=== PATIENT | female | born 2000 | race Caucasian/White ===

== ENCOUNTER 2023-07-03 03:40 | Inpatient (IN) | payer MEDICAID, SELFPAY ==
[2023-07-03] VITALS (14 sets, daily range): BP systolic 98–139; BP diastolic 37–94; PULSE 95–126; RESP 18–30; TEMP 36.4–39.3; O2SAT 95–100; BMI 24.6
--- NOTE | ~2023-07-03 | XR_ITS ---
EXAMINATION: XR CHEST CLINICAL INFORMATION: Fever. COMPARISON: 06/06/2019 TECHNIQUE: Frontal view of the chest was obtained. FINDINGS: The lung volumes are low. The cardiomediastinal silhouette is within normal limits and stable. There is no definitive focal consolidation or pleural effusion. The bony structures and soft tissues are unremarkable. XR/XR chest 1V IMPRESSION: Low lung volumes. No evidence for active cardiopulmonary disease.
--- NOTE | ~2023-07-03 | CT_ITS ---
EXAMINATION: CT ABDOMEN AND PELVIS WITH CONTRAST CLINICAL INFORMATION: Follow-up bowel inflammatory changes. COMPARISON: 07/06/2023 and 07/03/2023 TECHNIQUE: Multidetector volumetric images were obtained from the superior aspect of the liver through the pubic symphysis following administration 85 mL of Omnipaque 350 intravenous contrast. Sagittal and coronal reformatted images were obtained on the technologist's workstation. Oral contrast: No This CT examination was performed using dose optimization techniques as appropriate, variously including the following: *Automated exposure control *Adjustment of mA and/or kV according to patient size (this includes techniques or standardized protocols for targeted exams where dose is matched to indication/reason for exam; i.e. extremities or head) *Use of iterative reconstruction technique DLP: 512 mGy-cm FINDINGS: LUNG BASES: Bibasilar small pleural effusion and dense consolidations are stable since previous study. LIVER, GALLBLADDER, AND BILIARY TREE: There is stable hemangioma in the dome of the liver and inseparable from right lower lobe consolidation, with minimal peripheral enhancement. Liver otherwise is unremarkable. The gallbladder is unremarkable with no evidence of radiopaque gallstones, gallbladder wall thickening, or obvious pericholecystic inflammatory changes. PANCREAS: Unremarkable. SPLEEN: Unremarkable. ADRENAL GLANDS: Unremarkable. KIDNEYS AND URETERS: The kidneys are normal in size, shape, and attenuation. No hydronephrosis, hydroureter, or calculi seen. No perinephric stranding. BLADDER: Unremarkable. GASTROINTESTINAL TRACT: When compared to the previous 2 examinations are inflammatory changes in the ileocecal region seems to be persistent with less prominent ascites surrounding the cecum. The cecum is distended. The wall of fecal matter is not thickened. Appendix is visualized, surrounded by fluid with fluid in the lumen and due to extensive inflammatory changes in the surrounding mesentery appendicitis could not be excluded. ABDOMINAL WALL: No significant hernia is appreciated. LYMPH NODES: Normal. VASCULAR: Unremarkable. PELVIC VISCERA: There is fluid in cul-de-sac OSSEOUS STRUCTURES: Unremarkable. CT/CT abdomen pelvis w IV con IMPRESSION: Inflammatory changes in the right lower quadrant surrounding ileocecal valve, thickened wall of terminal hilum most likely due to inflammatory changes and appendix, visualized in the current examination reveals inflammatory changes also. Correlate clinically. Fleischner guidelines were followed.
--- NOTE | ~2023-07-03 | XR_ITS ---
EXAMINATION: XR CHEST CLINICAL INFORMATION: Cough. COMPARISON: Chest x-ray 07/03/2023 TECHNIQUE: Frontal view of the chest was obtained. FINDINGS: The lungs are hypoexpanded patchy opacity seen in right middle lobe, slightly more prominent than 07/03/2023. The cardiomediastinal silhouette is within normal limits. No gross bony abnormality seen. XR/XR chest 1V IMPRESSION: Patchy opacity right middle lobe suspicious for developing infiltrate. Findings are slightly more prominent than 07/03/2023.
--- NOTE | ~2023-07-03 | CT_ITS ---
EXAMINATION: CT ABDOMEN AND PELVIS WITH CONTRAST CLINICAL INFORMATION: Abdominal pain. Question ileitis versus appendicitis. COMPARISON: CT abdomen and pelvis 07/03/2023 TECHNIQUE: Multidetector volumetric images were obtained from the superior aspect of the liver through the pubic symphysis following administration 85 mL of Omnipaque 350 intravenous contrast. Sagittal and coronal reformatted images were obtained on the technologist's workstation. Oral contrast: No This CT examination was performed using dose optimization techniques as appropriate, variously including the following: *Automated exposure control *Adjustment of mA and/or kV according to patient size (this includes techniques or standardized protocols for targeted exams where dose is matched to indication/reason for exam; i.e. extremities or head) *Use of iterative reconstruction technique DLP: 439 mGy-cm FINDINGS: LUNG BASES: There are bilateral lower lobe consolidations and pleural effusions. LIVER, GALLBLADDER, AND BILIARY TREE: The liver is normal in size, shape, and attenuation. There is irregular shaped right hepatic lobe lesion with central and some peripheral increased vascularity on sagittal image 82/5. Findings are suspicious for hemangioma. No additional lesions seen. No intrahepatic ductal dilatation. The gallbladder is unremarkable with no evidence of radiopaque gallstones, gallbladder wall thickening, or obvious pericholecystic inflammatory changes. PANCREAS: Unremarkable. SPLEEN: Unremarkable. ADRENAL GLANDS: Unremarkable. KIDNEYS AND URETERS: The kidneys are normal in size, shape, and attenuation. No hydronephrosis, hydroureter, or calculi seen. No perinephric stranding. BLADDER: Unremarkable. GASTROINTESTINAL TRACT: Interval there is clearance of stool from the colon with diffuse mural thickening and dilation involving the cecum with air-fluid level. The terminal ileum is thickened and contains moderate fluid. The terminal ileum is not so dilated. There is mild enhancement of the mucosa of the distal ileum.. There is adjacent fluid collection but no free air seen. The bowel findings are highly suspicious for inflammatory bowel disease such as Crohn's or typhlitis. Appendix is definitely not visualized the proximal and mid small bowel loops are normal caliber. The stomach is nondilated. ABDOMINAL WALL: No significant hernia is appreciated. LYMPH NODES: Prominent abnormal enhancing ileocecal mesenteric lymph nodes seen. VASCULAR: Unremarkable. PELVIC VISCERA: The uterus is anteverted and appears unremarkable. No adnexal mass seen. There is mild or free fluid. OSSEOUS STRUCTURES: Unremarkable. CT/CT abdomen pelvis w IV con IMPRESSION: Abnormal ileocecal junction, cecum which has progressed since 07/03/2023 CT abdomen exam. Findings are strongly suspicious for inflammatory or infectious bowel disease such as Crohn's or typhlitis. There is interval moderate free fluid and clearance of stool from the right colon. No free air seen to suspect any bowel perforation. Appendix is not seen. It was not seen previously either. Enhancing abnormal inflammatory ileocecal lymph nodes Fleischner guidelines were followed.
--- NOTE | ~2023-07-03 | FL_ITS ---
EXAMINATION: Modified Barium Swallow CLINICAL INFORMATION: Dysphagia COMPARISON: None TECHNIQUE: Modified barium swallow was performed under lateral fluoroscopy with patient in standing position. Barium mixed with liquids and solids of differing consistencies was administered by the speech therapist. Examination was recorded in the fluoroscopy suite. FINDINGS: No laryngeal penetration or aspiration was seen during this examination. FLUOROSCOPY TIME: 1 minute 33 seconds Number of Spot Images: 1 DOSE AREA PRODUCT: 883 uGy-m2 (microgray-meter squared) FL/FL barium swallow modified IMPRESSION: No laryngeal penetration or aspiration was seen during this examination. Refer to the speech therapy report for further clarification This procedure was performed by Sebastian Aguilar PA-C, and supervised by Dr. Collier
--- NOTE | ~2023-07-03 | CT_ITS ---
EXAMINATION: CT ABDOMEN AND PELVIS WITHOUT CONTRAST CLINICAL INFORMATION: Fever. Abdominal pain. COMPARISON: None available. TECHNIQUE: Multidetector volumetric imaging was performed from the superior aspect of the liver through the pubic symphysis. Sagittal and coronal reformatted images were obtained on the technologist's workstation. This CT examination was performed using dose optimization techniques as appropriate, variously including the following: *Automated exposure control *Adjustment of mA and/or kV according to patient size (this includes techniques or standardized protocols for targeted exams where dose is matched to indication/reason for exam; i.e. extremities or head) *Use of iterative reconstruction technique DLP: 506 mGy-cm FINDINGS: LUNG BASES: Mild atelectasis or scarring at the right lung base. LIVER, GALLBLADDER, AND BILIARY TREE: The liver is normal in size, shape, and attenuation. No focal hepatic lesion or biliary ductal dilatation is present. The gallbladder is unremarkable with no evidence of radiopaque gallstones, gallbladder wall thickening, or obvious pericholecystic inflammatory changes. PANCREAS: Unremarkable. SPLEEN: Unremarkable. ADRENAL GLANDS: Unremarkable. KIDNEYS AND URETERS: The kidneys are normal in size, shape, and attenuation. No hydronephrosis, hydroureter, or calculi seen. No perinephric stranding. BLADDER: Unremarkable. GASTROINTESTINAL TRACT: There is significant infiltrative change in the right lower quadrant with apparent thickening of the terminal small bowel and basal the cecum. The appendix is not confidently seen as a separate structure. There is retained stool throughout the colon. A rectal catheter is noted in place. ABDOMINAL WALL: No significant hernia is appreciated. LYMPH NODES: Normal. VASCULAR: Unremarkable. PELVIC VISCERA: The uterus and adnexal regions are within normal limits. There is a small amount of free fluid within the pelvis. OSSEOUS STRUCTURES: Unremarkable. CT/CT abdomen pelvis wo IV con IMPRESSION: Inflammatory change in the right lower quadrant with apparent thickening of the terminal small bowel and base of the cecum. Small amount of free fluid within the pelvis. Appendicitis favored over inflammatory bowel disease. Correlation is needed. Consider repeat examination with oral and IV contrast. Retained stool throughout. Rectal catheter in place. Fleischner guidelines were followed.
[2023-07-03] MEDS: 0.9 % Sodium Chloride 1,000 ML 999 ML IV (04:01)
--- NOTE | 2023-07-03 04:05 | ED_ITS ---
HPI - Altered Mental Status General Chief Complaint: General Medical Stated Complaint: LETHARGY, NON VERBAL, WHEELCHAIR BOUND Time Seen by Provider: 07/03/23 03:55 Source: family (Mother) and EMS Mode of arrival: EMS Limitations: physical limitation (Nonverbal.) History of Present Illness HPI narrative: 22-year-old female with history of cerebral palsy, febrile seizure disorder, nonverbal came in by her mom for concern of being lethargic and difficult to arouse. Limited history because patient medical history, found to have a fever of 104, patient also is grimacing during the abdominal exam. Mother declined any sick contacts, no recent travel. Related Data Allergies Allergy/AdvReac Type Severity Reaction Status Date / Time No Known Allergies Allergy Unverified 01/29/20 17:00 Review of Systems 2 Review of Systems: All other systems are reviewed and are negative Constitutional: Reports as per HPI and Reports no additional constitutional complaints Eyes: Reports as per HPI and Reports no additional eye complaints Reports system reviewed and no additional complaints, except as documented Cardiovascular: Reports as per HPI and Reports no additional cardiovascular complaints Respiratory: Reports as per HPI and Reports no additional respiratory complaints Gastrointestinal: Reports as per HPI and Reports no additional gastrointestinal complaints Genitourinary: Reports no additional female genitourinary complaints Musculoskeletal: Reports no additional musculoskeletal complaints Skin/Breast: Reports system reviewed and no additional complaints, except as docu Psychiatric: Reports no additional psychiatric complaints Endocrine: Reports no additional endocrine complaints Hematologic/Lymphatic: Reports no additional hematologic/lymphatic complaints Allergic/Immunologic: Reports no additional allergic/immunologic complaints Reports system reviewed and no additional complaints, except as documented and Reports Abnormal speech present [facility] Social History Social History Advance Directives: No Advance Directives Information Provided: Yes Physical Exam ED Vital Signs: Vital Signs - 24 hr 07/03/23 03:53 07/03/23 04:23 07/03/23 04:38 Temperature 102.7 F H 102.7 F H Pulse Rate 114 H 108 H 109 H Respiratory Rate 24 H 24 H 23 H Blood Pressure 111/72 123/58 L 139/94 H Pulse Oximetry 100 100 97 Oxygen Delivery Method Room Air Room Air Room Air 07/03/23 05:30 07/03/23 05:53 07/03/23 06:29 Temperature 102.2 F H 101.5 F H 100.9 F H Pulse Rate 109 H 112 H 95 Respiratory Rate 20 21 H 19 Blood Pressure 108/59 L 112/61 105/60 Pulse Oximetry 98 99 99 Oxygen Delivery Method Room Air Room Air Room Air BMI result Body Mass Index 24.6 Vital signs have been reviewed and appear to be correct. Blood pressure elevated. Heart rate normal. Respiratory rate normal. Febrile, Oxygen saturation normal. Appearance: Nonverbal Head: Normal external exam. Normocephalic. Atraumatic. No Russo signs noted. No raccoon eyes noted Eyes: PERRLA. EOMI. Conjunctiva and sclera normal. Eyelids normal. ENT: TM's Normal. Pharynx normal. Uvula midline. Moist mucous membranes. No trismus noted. No drooling noted. No muffled voice noted. Neck: Normal inspection. Neck supple. FROM. No adenopathy. Thyroid Normal. No meningeal signs. No neck mass noted. CVS: Normal heart rate and rhythm. Heart sound normal. No murmurs noted. Pulses normal throughout. Respiratory: No respiratory distress. Painless inspiration. Breath sounds normal. No wheezes/rales/rhonchi noted. Chest nontender. No accessory muscle usage noted or decreased air movement noted. Abdomen: Mild tenderness, no rebound tenderness, no guarding. Bowel sounds normal in all 4 quadrants. No distention noted. No organomegaly noted. No visible injury noted. Back: No CVA tenderness. Full range of motion noted. Skin: Skin warm and dry. Normal skin color. Normal skin turgor. No rashes/lesions/lacerations noted. Extremities: No lower extremity edema. Extremities exhibit normal range of motion. Extremities nontender. Neuro: Oriented X 3. Cranial nerve exam: II-XII are grossly intact No motor deficit. No sensory deficit. Reflexes normal. Course Reevaluation(s) Reevaluation #1: 22-year-old female nonverbal with fever and meet sepsis criteria no source of infection, likely secondary to UTI unable to pass Souza catheter or straight catheter due to abnormal anatomy patient received 1 dose of prophylactic ceftriaxone and IV fluids, awaiting for CT of the abdomen and pelvis and UA. Case signed out to Dr. Valdivia. Time: 06:44 Medications Administered Generic Name Dose Route Start Last Admin Trade Name Freq PRN Reason Stop Dose Admin Sodium Chloride 1,000 mls @ 500 mls/hr 07/03/23 05:47 07/03/23 05:52 Ns IV 07/03/23 07:46 500 mls/hr .Q2H ONE Administration Discontinued Medications Generic Name Dose Route Start Last Admin Trade Name Xavi PRN Reason Stop Dose Admin Acetaminophen 650 mg 07/03/23 04:04 07/03/23 04:10 Acetaminophen Supp 650 Mg Supp.Rect IA 07/03/23 04:05 650 mg ONCE ONE Administration Sodium Chloride 1,000 mls @ 999 mls/hr 07/03/23 03:55 07/03/23 05:30 Ns IV 07/03/23 04:55 Infused .Q1H1M ONE Infusion Ceftriaxone Sodium 1 gm/ 50 mls @ 100 mls/hr 07/03/23 05:08 07/03/23 05:47 Sodium Chloride IV 07/03/23 05:37 Infused ONCE ONE Infusion Ibuprofen 400 mg 07/03/23 05:02 07/03/23 05:17 Ibuprofen Oral Susp 200 Mg/10 Ml Oral.Susp PO 07/03/23 05:03 400 mg ONCE ONE Administration Medical Decision Making Differential Diagnosis Differential Diagnoses: The differential diagnosis associated with the presentation includes (Colitis, diverticulitis, appendicitis, pancreatitis, acute cholecystitis, UTI, pyelonephritis, electrolyte derangement, severe anemia.) Admission/Observation Consideration of admission/observation: Escalation of care including admission/observation considered Lab Data MDM Lab Attestation statement: I reviewed the patient's lab results. 07/03/23 04:03 07/03/23 04:03 Labs: Lab Results 07/03/23 Range/Units 04:03 WBC 13.6 H (4.8-10.8) X10*3/uL RBC 3.78 L (4.20-5.50) X10*6/uL Hgb 12.0 (12.0-16.0) g/dl Hct 37.3 (37.0-47.0) % MCV 98.7 H (80.0-98.0) fL MCH 31.7 (27.0-33.0) pg MCHC 32.2 (31.0-35.0) g/dl RDW 12.3 (11.0-16.0) % Plt Count 112 L (160-400) X10*3/uL MPV 11.1 (9.4-12.3) fL Immature Gran % (Auto) 0.4 (0.0-0.4) % Neut % (Auto) 68.1 (45-73) % Lymph % (Auto) 12.2 L (20-40) % [place] % (Auto) 19.2 H (2-11) % Eos % (Auto) 0.0 (0-4) % Baso % (Auto) 0.1 (0-2) % Lymph # (Auto) 1.7 (1.2-4.9) X10*3/uL [place] # (Auto) 2.6 H (0.1-1.2) X10*3/uL Eos # (Auto) 0.0 (0.0-0.4) X10*3/uL Baso # (Auto) 0.0 (0.0-0.2) X10*3/uL Abs Immat Gran (auto) 0.06 H (0.00-0.03) X10*3/uL Absolute Neuts (auto) 9.3 H (2.0-8.3) x10*3/uL Absolute Nucleated RBC 0.000 (0.0-0.012) X10*3/uL Nucleated RBC % (auto) 0.0 (0.0-0.2) /100WBC Smear Tech's Comments VERIFIED Sodium 139 (135-145) mmol/L Potassium 4.1 (3.3-5.1) mmol/L Chloride 108 (96-108) mmol/L Carbon Dioxide 21 L (22-29) mmol/L Anion Gap 14 (12-20) BUN 13 (9-16) mg/dL Creatinine 0.63 (0.5-1.4) mg/dL Estim Creat Clear Calc TNP Estimated GFR > 60 Random Glucose 140 H (60-115) mg/dL Lactic Acid 1.0 (0.5-2.0) mmol/L Calcium 9.6 (8.4-10.2) mg/dL Total Bilirubin 0.3 (0.0-1.0) mg/dL Direct Bilirubin 0.1 (0.0-0.5) mg/dL AST 12 (5-31) U/L ALT < 5 (0-31) U/L Alkaline Phosphatase 70 (39-117) U/L Troponin I High Sens < 2.7 (<3.5-17.0) ng/L B-Natriuretic Peptide < 10 (<100) pg/mL Total Protein 7.5 (6.5-8.0) g/dL Albumin 3.6 (3.5-5.0) g/dL Lipase 38 (8-78) U/L Influenza Type A (PCR) NEGATIVE (Negative) Influenza Type B (PCR) NEGATIVE (Negative) RSV RNA Qual (PCR) NEGATIVE (Negative) SARS-CoV-2 RNA (RT-PCR) NEGATIVE (Negative) Independent Interpretation I performed an independent interpretation of an: Plain X-Ray (No acute pathology.) Radiology Impression Discussion of test interpretation with radiology: I have reviewed the radiologist's reading. Discharge Plan Discharge Clinical Impression: Fever, Abdominal pain Patient Disposition: Still a Patient
[2023-07-03 04:09] LABS: Basophils Percent Auto 0.1 % (0-2); PLT CLUMP 1; SCAN SMEAR FLAG 1
[2023-07-03] MEDS: Acetaminophen Supp 650 MG SUPP.RECT PR (04:10)
[2023-07-03 04:11] LABS: Hematocrit 37.3 % (37.0-47.0); Imm Gran Abs Auto 0.06 X10*3/uL (0.00-0.03); Imm Gran Pct Auto 0.4 % (0.0-0.4); Lymphocytes Absolute Auto 1.7 X10*3/uL (1.2-4.9); Lymphocytes Percent Auto 12.2 % (20-40); MANUAL DIFF FLAG SCAN; Mean Corpuscular HGB Conc 32.2 g/dl (31.0-35.0); Mean Corpuscular Hemoglobin 31.7 pg (27.0-33.0); Mean Corpuscular Volume 98.7 fL (80.0-98.0); Mean Platelet Volume 11.1 fL (9.4-12.3); Monocytes Absolute Auto 2.6 X10*3/uL (0.1-1.2); Monocytes Percent Auto 19.2 % (2-11); Neutrophils Absolute Auto 9.3 x10*3/uL (2.0-8.3); Neutrophils Percent Auto 68.1 % (45-73); Red Blood Count 3.78 X10*6/uL (4.20-5.50); Red Cell Distribution Width 12.3 % (11.0-16.0)
[2023-07-03 04:13] LABS: Platelet Count 112 X10*3/uL (160-400); White Blood Count 13.6 X10*3/uL (4.8-10.8)
[2023-07-03 04:25] LABS: Alanine Aminotransferase < 5 U/L (0-31); Albumin Level 3.6 g/dL (3.5-5.0); Alkaline Phosphatase 70 U/L (39-117); Anion Gap 14 (12-20); Aspartate Amino Transferase 12 U/L (5-31); Bilirubin Direct 0.1 mg/dL (0.0-0.5); Bilirubin Total 0.3 mg/dL (0.0-1.0); Blood Urea Nitrogen 13 mg/dL (9-16); Calcium 9.6 mg/dL (8.4-10.2); Carbon Dioxide 21 mmol/L (22-29); Chloride 108 mmol/L (96-108); Estimated Glomerular Filt Rate > 60; Glucose Random 140 mg/dL (60-115); Lipase 38 U/L (8-78); Potassium 4.1 mmol/L (3.3-5.1); Sodium 139 mmol/L (135-145); Total Protein 7.5 g/dL (6.5-8.0)
[2023-07-03 04:28] LABS: SLIDE REVIEW VERIFIED
[2023-07-03 04:32] LABS: Troponin-I High Sensitivity < 2.7 ng/L (<3.5-17.0)
[2023-07-03 04:33] LABS: B Type Natriuretic Peptide < 10 pg/mL (<100)
[2023-07-03 04:51] LABS: Influenza A PCR NEGATIVE (Negative); Influenza B PCR NEGATIVE (Negative); Resp Syncy Virus RNA Qual PCR NEGATIVE (Negative); SARS COV2 PCR INHOUSE NEGATIVE (Negative)
[2023-07-03] MEDS: cefTRIAXone sodium 1 GM in 0.9 % Sodium Chloride 50 ML IV (05:17)
[2023-07-03] MEDS: Ibuprofen Oral Susp 200 MG/10 ML ORAL.SUSP 400 MG PO (05:17)
--- OUTSIDE RECORDS SUMMARY | 2023-07-03 05:51 | XMS_ITS | Continuity of Care Document ---
Author Name Unknown Organization [facility] Address [address] [place] [address]- Care Team Providers Care Marketing Content Coordinator Name Role Phone Mariam ESCOBAR, Kristina Lewis Primary Care Physician [phone] Encounter [facility] [place] Date(s): 04/26/22 - 05/26/22 [facility] [address] [place] [address]- Allergies, Adverse Reactions, Alerts No Known Allergies Medications clobazam 10 mg oral tablet 1 tablet = 10 mg, By Mouth, 2 times a day, # 60 tablet, 5 Refills, Maintenance, 11/04/15 14:46:26 Start Date: 11/04/15 Status: Ordered cloNIDine 0.1 mg oral tablet See Instructions, 0.25 tablet By Mouth in AM, # 30 tablet, Refills 5, Tot. Refills 5, Maintenance, 11/04/15 14:44:12, Instructions Replace Required Details, Route to Pharmacy Electronically, [id number], [id number] Start Date: 11/04/15 Status: Ordered Diastat AcuDial 10 mg rectal kit See Instructions, 7.5mg Rectally Once for convulsive seizure > 3 minutes., # 2 kit, 0 Refills, Soft Stop, 02/18/16 16:40:43 Start Date: 02/18/16 Status: Ordered Divalproex Sodium By Mouth, 0 Refills, Maintenance, 02/11/19 13:08:10 EDT Start Date: 02/11/19 Status: Ordered ethinyl estradiol-levonorgestrel 30 mcg-0.15 mg oral tablet 1 tablet, By Mouth, Daily, # 84 tablet, 3 Refills, Maintenance, 01/27/21 14:13:00 EDT, Tablet, [id number], Partial fill upon patient request if the prescription is for a schedule II opioid drug., 1 tablet By Mouth Daily, 57.2, kg, 01/24/21 14:... Start Date: 01/27/21 Status: Ordered ferrous sulfate 325 mg oral enteric coated tablet 325 mg, 1, tablet, By Mouth, 2 times a day, # 180 tablet, Refills 0, Tot. Refills 0, Maintenance, 02/24/19 12:44:09 EDT, Route to Pharmacy Electronically, [id number], [facility]/pharmacy #[id number] Start Date: 02/24/19 Status: Ordered Guanfacine By Mouth, Refills 0, Maintenance, 08/30/17 23:27:36 EDT Start Date: 08/30/17 Status: Ordered levothyroxine 0.088 mg oral tablet 1 tablet = 88 mcg, By Mouth, Daily, # 90 tablet, 3 Refills, Maintenance, 04/22/22 14:03:00 EST, Tablet, [facility]/pharmacy #[id number], Partial fill upon patient request if the prescription is for a schedule II opioid drug., 57.2, kg, 01/24/21 14:44:00 EDT, Dry W... Start Date: 04/22/22 Status: Ordered Melatonin Daily at bedtime, 0 Refills, Maintenance, 08/30/17 23:27:27 EDT Start Date: 08/30/17 Status: Ordered Onfi 10 mg oral tablet 0.5 tablet = 5 mg, By Mouth, Daily, 0.5 tablet in AM; 1 tablet at bedtime, 0 Refills, Maintenance, 08/30/17 23:28:26 EDT, Tablet Start Date: 08/30/17 Status: Ordered topiramate 100 mg oral tablet 2.5 tablet = 250 mg, By Mouth, 2 times a day, # 150 tablet, 11 Refills, Maintenance, 11/04/15 14:45:27, This is a dose increase. 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
[2023-07-03] MEDS: 0.9 % Sodium Chloride 1,000 ML 500 ML IV (05:52)
--- OUTSIDE RECORDS SUMMARY | 2023-07-03 05:52 | XMS_ITS | Continuity of Care Document ---
Author Name Unknown Organization [facility] Address [address] [place] [address]- Care Team Providers Care Mesh Worker Name Role Phone Mariam ESCOBAR, Kristina Lewis Primary Care Physician Encounter [facility] [place] Date(s): 04/25/22 - 05/25/22 [facility] [address] [place] [address]- Allergies, Adverse Reactions, Alerts No Known Allergies [...] Replace Required Details, Route to Pharmacy Electronically, [id number], [id number] Start Date: 11/04/15 Status: Ordered Diastat AcuDial [...] Refills, Maintenance, 01/27/21 14:13:00 EDT, Tablet, [id number], Partial fill upon patient request if the prescription is for a schedule II opioid drug., 1 tablet By Mouth Daily, 57.2, kg, 01/24/21 14:... Start Date: 01/27/21 Status: Ordered ferrous sulfate 325 mg oral enteric coated tablet 325 mg, 1, tablet, By Mouth, 2 times a day, # 180 tablet, Refills 0, Tot. Refills 0, Maintenance, 02/24/19 12:44:09 EDT, Route to Pharmacy Electronically, [id number], [facility]/pharmacy #[id number] Start Date: 02/24/19 Status: Ordered Guanfacine By Mouth, Refills 0, Maintenance, 08/30/17 23:27:36 EDT Start Date: 08/30/17 Status: Ordered levothyroxine 0.088 mg oral tablet 1 tablet = 88 mcg, By Mouth, Daily, # 90 tablet, 3 Refills, Maintenance, 04/22/22 14:03:00 EST, Tablet, [facility]/pharmacy #[id number], Partial fill upon patient request if [...] H ealth Status Informant Hypothyroidism Confirmed Active [place]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
--- OUTSIDE RECORDS SUMMARY | 2023-07-03 05:52 | XMS_ITS | Continuity of Care Document ---
Author Name Unknown Organization [facility] Address [address] [place] [address]- Care Team Providers Care Street Roller Engineer Name Role Phone Kristina Becerra MD Primary Care Physician [place] [facility] [place] - 05/26/21 [facility] [address] [place] [address]- Attending Physician: Trixie Schulz Admitting Physician: Trixie Schulz Referring Physician: Trixie Schulz Allergies, Adverse Reactions, Alerts No Known Allergies [...] Replace Required Details, Route to Pharmacy Electronically, [id number], [facility]/pharmacy #[id number] Start Date: 11/04/15 Status: Ordered Diastat AcuDial [...] 3 Refills, Maintenance, 01/27/21 14:13:00 EDT, Tablet, [facility]/pharmacy #[id number], Partial fill upon patient request if [...] 02/24/19 12:44:09 EDT, Route to Pharmacy Electronically, [id number], [facility]/pharmacy #[id number] Start Date: 02/24/19 Status: Ordered Guanfacine By Mouth, Refills 0, Maintenance, 08/30/17 23:27:36 EDT Start Date: 08/30/17 Status: Ordered levothyroxine 0.088 mg oral tablet 1 tablet = 88 mcg, By Mouth, Daily, # 90 tablet, 3 Refills, Maintenance, 04/26/21 16:17:00 EST, Tablet, [facility]/pharmacy #[id number], Partial fill upon patient request if the prescription is for a schedule II opioid drug., 57.2, kg, 01/24/21 14:44:00 EDT, Dry W... Start Date: 04/26/21 Status: Ordered Melatonin Daily at bedtime, 0 [...] Date: 11/04/15 Status: Ordered Problem List Condition Effective Dates Status Health Status Inform ant Hypothyroidism(Confirmed) Active Nelson-Gastaut syndrome(Confirmed)(Stable) Active Mental retardation(Confirmed)(Stable) Active Social History Social History Type Response Smoking Status Never smoker entered on: 07/16/14 Sex
--- OUTSIDE RECORDS SUMMARY | 2023-07-03 05:52 | XMS_ITS | Continuity of Care Document ---
Author Name Unknown Organization [facility] Address [address] [place] [address]- Care Team Providers Care Emt/Paramedic Name Role Phone Mariam ESCOBAR, Kristina Lewis Primary Care Physician [place] [facility] [place](s): 04/21/22 - 05/21/22 [facility] [address] [place] [address]- Allergies, Adverse Reactions, Alerts No Known Allergies [...] Replace Required Details, Route to Pharmacy Electronically, [id number], [facility]/pharmacy #[id number] Start Date: 11/04/15 Status: Ordered Diastat AcuDial [...] Refills, Maintenance, 01/27/21 14:13:00 EDT, Tablet, [id number], Partial fill upon patient request if the prescription is for a schedule II opioid drug., 1 tablet By Mouth Daily, 57.2, kg, 01/24/21 14:... Start Date: 01/27/21 Status: Ordered ferrous sulfate 325 mg oral enteric coated tablet 325 mg, 1, tablet, By Mouth, 2 times a day, # 180 tablet, Refills 0, Tot. Refills 0, Maintenance, 02/24/19 12:44:09 EDT, Route to Pharmacy Electronically, [id number], [facility]/pharmacy #[id number] Start Date: 02/24/19 Status: Ordered Guanfacine By Mouth, Refills 0, Maintenance, 08/30/17 23:27:36 EDT Start Date: 08/30/17 Status: Ordered levothyroxine 0.088 mg oral tablet 1 tablet = 88 mcg, By Mouth, Daily, # 90 tablet, 3 Refills, Maintenance, 04/22/22 14:03:00 EST, Tablet, 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
--- OUTSIDE RECORDS SUMMARY | 2023-07-03 05:52 | XMS_ITS | Continuity of Care Document ---
Author Name Unknown Organization [facility] Address [address] [place] [address]- Care Team Providers Care Clothes Drier Repairer Name Role Phone Mariam ESCOBAR, Kristina Lewis Primary Care Physician [place] [facility] [place](s): 01/27/21 - 05/04/21 [facility] [address] [place] [address]- Attending Physician: Lana Guthrie MD Admitting Physician: Lana Guthrie MD Allergies, Adverse Reactions, Alerts Substance Reaction Severity Status NKA Active Medications clobazam 10 mg oral tablet 1 tablet = 10 mg, By Mouth, 2 times a day, # 60 tablet, 5 Refills, Maintenance, 11/04/15 14:46:26 Start Date: 11/04/15 Status: Ordered cloNIDine 0.1 mg oral tablet See Instructions, 0.25 tablet By Mouth in AM, # 30 tablet, Refills 5, Tot. Refills 5, Maintenance, 11/04/15 14:44:12, Instructions Replace Required Details, Route to Pharmacy Electronically, [id number], [id number] Start Date: 11/04/15 Status: Ordered Diastat AcuDial [...] Refills, Maintenance, 01/27/21 14:13:00 EDT, Tablet, [id number], Partial fill upon patient request if [...] 02/24/19 12:44:09 EDT, Route to Pharmacy Electronically, [id number], [facility]/pharmacy #[id number] Start Date: 02/24/19 Status: Ordered Guanfacine By Mouth, Refills 0, Maintenance, 08/30/17 23:27:36 EDT Start Date: 08/30/17 Status: Ordered levothyroxine 0.088 mg oral tablet 1 tablet = 88 mcg, By Mouth, Daily, # 90 tablet, 3 Refills, Maintenance, 04/26/21 16:17:00 EST, Tablet, [facility]/pharmacy #[id number], Partial fill upon patient [...]
--- OUTSIDE RECORDS SUMMARY | 2023-07-03 05:52 | XMS_ITS | Continuity of Care Document ---
Author Name Unknown Organization [facility] Address [address] [place] [address]- Care Team Providers Care Homicide Investigator Name Role Phone Mariam ESCOBAR, Kristina Lewis Primary Care Physician [phone] [place] [facility] [place](s): 02/24/21 - 03/26/21 [facility] [address] [place] [address]- Allergies, Adverse Reactions, Alerts Substance Reaction Severity [...] Replace Required Details, Route to Pharmacy Electronically, [id number], [id number] Start Date: 11/04/15 Status: Ordered [...] Refills, Maintenance, 01/27/21 14:13:00 EDT, Tablet, [id number], Partial fill upon patient request if the prescription is for a schedule II opioid drug., 1 tablet By Mouth Daily, 57.2, kg, 01/24/21 14:... Start Date: 01/27/21 Status: Ordered ferrous sulfate 325 mg oral enteric coated tablet 325 mg, 1, tablet, By Mouth, 2 times a day, # 180 tablet, Refills 0, Tot. Refills 0, Maintenance, 02/24/19 12:44:09 EDT, Route to Pharmacy Electronically, [id number], [facility]/pharmacy #[id number] Start Date: 02/24/19 Status: Ordered Guanfacine By Mouth, Refills 0, Maintenance, 08/30/17 23:27:36 EDT Start Date: 08/30/17 Status: Ordered levothyroxine 0.1 mg oral tablet 1 tablet = 100 mcg, By Mouth, Daily, # 30 tablet, 11 Refills, Maintenance, 01/27/21 14:12:00 EDT, [facility]/pharmacy #[id number], Partial fill upon patient request if the prescription is for a schedule II opioiddrug., 57.2, kg, 01/24/21 14:44:00 EDT, Dry Weight Start Date: 01/27/21 Status: Ordered Melatonin Daily at bedtime, 0 [...] Effective Dates Status Health Status Inform ant Nelson-Gastaut syndrome(Confirmed)(Stable) Active Mental retardation(Confirmed)(Stable) Active Social History Social History Type Response Smoking Status Never smoker entered on: 07/16/14 Sex
--- OUTSIDE RECORDS SUMMARY | 2023-07-03 05:52 | XMS_ITS | Continuity of Care Document ---
Author Name Unknown Organization [facility] Address [address] [place] [address]- Care Team Providers Care Research Tech Name Role Phone Mariam ESCOBAR, Kristina Lewis Primary Care Physician [place] [facility] [place]21 - 05/05/21 [facility] [address] [place] [address]- Allergies, Adverse Reactions, Alerts Substance Reaction Severity [...] Replace Required Details, Route to Pharmacy Electronically, [id number], [id number] Start Date: 11/04/15 Status: Ordered Diastat AcuDial [...] Refills, Maintenance, 01/27/21 14:13:00 EDT, Tablet, [id number], Partial fill upon patient request if the prescription is for a schedule II opioid drug., 1 tablet By Mouth Daily, 57.2, kg, 01/24/21 14:... Start Date: 01/27/21 Status: Ordered ferrous sulfate 325 mg oral enteric coated tablet 325 mg, 1, tablet, By Mouth, 2 times a day, # 180 tablet, Refills 0, Tot. Refills 0, Maintenance, 02/24/19 12:44:09 EDT, Route to Pharmacy Electronically, [id number], [facility]/pharmacy #[id number] Start Date: 02/24/19 Status: Ordered Guanfacine By Mouth, Refills 0, Maintenance, 08/30/17 23:27:36 EDT Start Date: 08/30/17 Status: Ordered levothyroxine 0.088 mg oral tablet 1 tablet = 88 mcg, By Mouth, Daily, # 90 tablet, 3 Refills, Maintenance, 04/26/21 16:17:00 EST, Tablet, [facility]/pharmacy #[id number], Partial fill upon patient [...]
--- OUTSIDE RECORDS SUMMARY | 2023-07-03 05:52 | XMS_ITS | Continuity of Care Document ---
Author Name Unknown Organization [facility] ter Address [address] [place] [id number]- Care Team Providers Care Counter Pocket Trimmer Name Role Phone Mariam ESCOBAR, Kristina Lewis Primary Care Physician [phone] [place] [facility] [id number] Date(s): 07/20/22 - 07/20/[address] [address]- Encounter Diagnosis Sepsis(Final) - 07/20/22 Urinary tract infection(Final) - 07/20/22 Discharge Disposition: A-D/C Home Attending Physician: Aida Conde MD Admitting Physician: Aida Conde MD Referring Physician: Not on Staff, Referring MD Allergies, Adverse Reactions, Alerts No Known Allergies Medications cefpodoxime 200 mg oral tablet 1 tablet = 200 mg, By Mouth, Every 12 hours, for 9 days, # 18 tablet, 0 Refills, Acute 07/29/22 12:05:00 EDT, 07/20/22 12:05:00 EST, Tablet, [facility] [place] [facility], Partial fill upon patient request if the prescription is for a schedule II opioid . Start Date: 07/20/22 Stop Date: 07/29/22 Status: Ordered clobazam 10 mg oral tablet 1 tablet = 10 mg, By Mouth, 2 times a day, # 60 tablet, 5 Refills, Maintenance, 11/04/15 14:46:26 Start Date: 11/04/15 Status: Ordered cloNIDine 0.1 mg oral tablet See Instructions, 0.25 tablet By Mouth in AM, # 30 tablet, Refills 5, Tot. Refills 5, Maintenance, 11/04/15 14:44:12, Instructions Replace Required Details, Route to Pharmacy Electronically, [id number], [id number] Start Date: 11/04/15 Status: Ordered Diastat AcuDial [...] 3 Refills, Maintenance, 01/27/21 14:13:00 EDT, Tablet, [id number], Partial fill upon patient request if [...] 02/24/19 12:44:09 EDT, Route to Pharmacy Electronically, [id number], [id number] Start Date: 02/24/19 Status: Ordered Guanfacine By Mouth, Refills 0, Maintenance, 08/30/17 23:27:36 EDT Start Date: 08/30/17 Status: Ordered levothyroxine 0.088 mg oral tablet 1 tablet = 88 mcg, By Mouth, Daily, # 90 tablet, 3 Refills, Maintenance, 04/22/22 14:03:00 EST, Tablet, [id number], Partial fill upon patient [...] H ealth Status Informant Hypothyroidism Confirmed Active Angelina-Gastaut syndrome Confirmed Stable Active Mental retardation Confirmed Stable Active Results Radiology Reports * Exam Date Time Procedure Performing Provider Status 07/20/22 12:29 AM Chest Portable Becky Duvall; Auth (Verified) Notes: (Chest Portable) Reason For Exam: Shortness of Breath RESULT: Chest Portable Chest Portable Hx of Present Illness: fevers started this evening with shaking; Reason: Shortness of Breath; Clinical Question(s): CHF COMPARISON: None. FINDINGS: LINES AND TUBES: None. LUNGS AND PLEURA: Somewhat low lung volumes with atelectasis. No definite consolidation. No pleural effusion. No pneumothorax. HEART, MEDIASTINUM AND VITA: Heart is normal in size. Normal mediastinal and hilar contour. BONES AND SOFT TISSUES: No acute abnormality. IMPRESSION: Low lung volumes without acute cardiopulmonary process. WSN: [id number] Ordering Physician: Adan Pina Dictated By: Darwin Calderón MD Dictated Date/Time: 07/20/22 7:47 am Reviewed By: Darwin Calderón MD Signed By: Darwin Calderón MD Signed Date/Time: 07/20/22 7:47 am Transcribed By: JANIA Transcribed Date/Time: 07/20/22 7:46 am * Exam Date Time Procedure Performing Provider Status 07/20/22 3:[address] Abdomen and Pelvis W/O Contrast Stup ak , Alon; Auth (Verified) Notes: (CT Abdomen and Pelvis W/O Contrast) Reason For Exam: Flank pain, kidney stone suspected;Other: RESULT: CT Abdomen and Pelvis W/O Contrast CT Abdomen and Pelvis W/O Contrast REASON: Somnolent, less responsive, fever. Flank pain, kidney stone suspected; Clinical Question(s): Calculus; Right Side flank TECHNIQUE: Spiral CT through the abdomen and pelvis without IV contrast formatted in 3 planes. Thisstudy was performed without oral contrast. Weight- based protocol using automatic tube modulation was used to optimize exposure parameters. CTDIvol Body: 4.60 mGy, DLP Body: 222 mGy*cm. COMPARISON: Retroperitoneal ultrasound 11/02/2010. FINDINGS: [facility] Findings, Lines and Tubes: None. Visualized Chest: Partially imaged density in the posterior lung bases. No pleural effusion. Diaphragm: Partially imaged. Unremarkable. Liver: Normal. Gallbladder: Collapsed. Unremarkable. Bile ducts: No biliary ductal dilation. Spleen: Normal. Pancreas: Normal. Adrenal glands: Normal. Kidneys and ureters: No hydronephrosis, stones, or noncontrast evidence of suspicious masses. Bladder: Partially distended with diffuse wall thickening and moderate surrounding stranding. Reproductive organs: Unremarkable. Stomach, small bowel, and large bowel: No bowel obstruction. Moderate stool burden. Appendix: 2 mm fecalith within the mid appendix. The appendix is otherwise normal without dilatation or periappendiceal inflammatory changes. Peritoneum and retroperitoneum: Moderate stranding within the pelvis. No ascites or pneumoperitoneum. Lymph nodes: No enlarged lymph nodes. Blood vessels: Normal. No aneurysm. Abdominal and pelvic wall: Unremarkable. Bones: No acute abnormality. IMPRESSION: Diffuse wall thickening with moderate stranding around the urinary bladder consistent with cystitis. Pyelonephritis is suboptimally evaluated without IV contrast. No renal/ureteral stone or evidence of obstructive uropathy. Partially imaged density in the lung bases, most likely atelectasis. Concurrent aspiration is less likely but not fully not excluded. I have personally reviewed the images and I agree with this report. WSN: [id number] Ordering Physician: Adan Pina Dictated By: Haleigh Dumont DO Dictated Date/Time: 07/20/22 6:56 am Reviewed By: Shirley Cohen MD Signed By: Shirley Cohen MD Signed Date/Time: 07/20/22 7:01 am Transcribed By: JANIA Transcribed Date/Time: 07/20/22 3:56 am Vital Signs Most recent to oldest [Reference Range]: 1 2 3 Height 142 cm (07/20/22 4:56 AM) 142 cm (07/20/22 1:46 AM) 142 cm (07/19/22 11:45 PM) Weight 56.6 kg (07/20/22 4:56 AM) 55 kg (07/20/22 1:46 AM) 55 kg (07/19/22 11:45 PM) Oxygen Saturation [94-100 %] 94 % (07/20/22 4:00 PM) 98 % (07/20/22 1:00 PM) 97 % (07/20/22 8:00 AM) Pulse Rate [55-90 bpm] 104 bpm *H* (07/20/22 4:00 PM) 71 bpm (07/20/22 1:00 PM) 87 bpm (07/20/22 8:00 AM) Body Mass Index [18.5-24.99 kg/m2] 28.07 kg/m2 *H* (07/20/22 4:56 AM) 27.28 kg/m2 *H* (07/20/22 1:46 AM) 27.28 kg/m2 *H* (07/19/22 11:45 PM) Blood Pressure [90-138/55-84 mm Hg] 111/61mm Hg (07/20/22 4:00 PM) 102/57mm Hg (07/20/22 1:00 PM) 103/63mm Hg (07/20/22 8:00 AM) Respiratory Rate [16-30 br/min] 20 br/min (07/20/22 4:00 PM) 16 br/min (07/20/22 1:00 PM) 20 br/min (07/20/22 8:00 AM) Temperature [96.8-100.4 DegF] 98.0 DegF (07/20/22 4:00 PM) 97.8 DegF (07/20/22 1:00 PM) 98.2 DegF (07/20/22 8:00 AM) Mode of Delivery (Oxygen) Room air (07/20/22 4:00 PM) Room air (07/20/22 1:00 PM) Room air (07/20/22 8:00 AM) Blood pressure sites Arm, left (07/20/22 4:00 PM) Arm, left (07/20/22 1:00 PM) Arm, left (07/20/22 8:00 AM) Temperature Route Axillary (07/20/22 4:00 PM) Axillary (07/20/22 1:00 PM) Axillary (07/20/22 8:00 AM) Dry Weight 56.6 kg (07/20/22 4:56 AM) 55 kg (07/20/22 1:46 AM) 55 kg (07/19/22 11:45 PM) Social History Social History Type Response Smoking Status Never smoker entered on: 07/16/14 Sex Admission evaluation note * Jett ESCOBAR, Brooke Barnes: MODIFY, MODIFY, MODIFY, MODIFY, PERFORM Event Display: Admission Note Authored Date: [id number] Patient: ??TRAY HAYWARD ? Age:??21 Years?Sex:??Female?:??2000?? 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 Mom reports the patient was in her normal state of health??until this afternoon. ??Looking back mom does states she noticed??that patient??was??lying on her stomach more when she was asleep, mom believes possibly due to abdominal pain??although patient is nonverbal. ??Mom also states that patient has been waking up at night more frequently. ??Earlier in the day patient had been??pushing for bowel movement, has a history of constipation.?? Later in the afternoon, mom noted??patient to be??somewhat somnolent and less responsive??then had rigors.?Mom also reports decreased p.o. intake??and??last void in diaper had??some blood. ??Due to??concerns of lethargy, brought to ED. In the ED, patient was febrile 100.9,??tachycardic to 114. ??Exam notable??for??tachycardia,??tenderness to palpation in right lower quadrant??without rebound or guarding,??and diaphoretic.?? Mom reported that patient was not at her baseline and was more sleepy.?? Due to concerns for lethargy, 1 dose of rectal Tylenol given.?? Patient was given??18 cc/kg bolus of fluids, blood culture was taken.?? Patient??clinically improved??after fluids and Tylenol.?? Lab work showed no leukocytosis??or leftshift.?? CMP??was WNL, valproic acid level??was 127.3.?? UA??showed??3+ leukocytes??and??over 182??W BC.?? 1 dose of IV ceftriaxone was given and admission requested due to??concerns of urosepsis.?? CT of abdomen and pelvis done for concerns of possible kidney stone,??pending official read. On exam,??patient??is??mostly asleep however does wake to palpation of??abdomen.?? Normal active bowel sounds, soft,??nondistended??although is??significant tenderness to palpation in abdomen.?? Mom reports patient received??all of her??nighttime doses of medications before arriving to ED.?? Mom also reports patient's??LMP ended 4 days ago. ??She denies that patient has ever had UTI in the past Review of Systems Limited due to patient condition Constitutional:??+ fever Respiratory:??No cough, shortness of breath, or wheezing. Gastrointestinal:??No vomiting, diarrhea. Objective Measurements?? Height: 142 cm (07/20/22) Weight: 55 kg (07/20/22) Dry Weight: 55 kg (07/20/22) Body Mass Index:??27.28 kg/m2??High (07/20/22) ? Vital Signs?? Temperature:??100.9 DegF??High (07/19/22 23:45:00) Temperature Route: Rectal (07/19/22 23:45:00) Pulse Rate: 87 bpm (07/20/22 01:46:00) Pulse Rate: 88 bpm (07/20/22 01:46:00) Respiratory Rate: 22 br/min (07/20/22 01:46:00) Respiratory Rate: 22 br/min (07/20/22 01:46:00) Systolic Blood Pressure: 111 mm Hg (07/20/22 01:46:00) Systolic Blood Pressure: 111 mm Hg (07/20/22 01:46:00) Diastolic Blood Pressure: 60 mm Hg (07/20/22 01:46:00) Diastolic Blood Pressure: 60 mm Hg (07/20/22 01:46:00) Blood pressure sites: Arm, right (07/20/22:46:00) Mean Arterial Pressure: 77 mm Hg (07/20/22 01:46:00) Pulse Pressure: 51 mm Hg (07/20/22 01:46:00) Oxygen Saturation: 100 % (07/20/22:46:00) Oxygen Saturation: 100 % (07/20/22:46:00) Mode of Delivery (Oxygen): Room air (07/20/22:46:00) ? Physical Exam General:??Asleep for most of exam HEENT:?? PERRL. EOMI. Nares patent bilaterally. Moist mucous membranes. Respiratory:??Lungs clear to auscultation bilaterally. No wheezes, rales, or rhonchi. Normal respiratory effort. Cardiovascular:??Regular rate and rhythm. S1, S2 normal. No murmurs, rubs, or gallops. ??Unable to assess peripheral pulses as patient has hand mittens Gastrointestinal:??Soft. Non-distended. Normoactive bowel sounds. ??Tenderness to palpation in epigastric region Musculoskeletal:??No clubbing, cyanosis. No edema. Skin:??Warm, dry. No rashes. Neurological:??More tired than baseline per mom, nonverbal Assessment/Plan Assessment:??Deishanett??is a 21-year-old past medical history??of Angelina- Gastaut, hypothyroidism,??and constipation who presents??for??complicated UTI??versus pyelonephritis. ?? Acute complicated UTI Patient is nonverbal at baseline has a constipation history.?? Patient presented??with??fever, tachycardia, and lethargy.?? UA was done??which??was positive for leukocytes??and many??WBCs as well as blood.?? Given fever and clinical picture??as well as??UA findings, considered acute complicated UTI blood culture??pending??given ill appearance??on exam??initially no nitrites, possible gram positive microbe, consider adding antimicrobial coverage once urine culture sensitivities back Lethargic on initial exam but improved, will order neuro checks q4 CT abdomen and pelvis for concerns of nephrolithiasis, pending read. ??Patient does??have tenderness to palpation??on right quadrants, but no leukocytosis??and given UA results UTI is more likely than appendicitis but can await final read Plan: -IV ceftriaxone, consider changing antimicrobial coverage based on urine culture results -mIVF, bolus as needed - neuro checks q4 -Repeat CMP for??kidney function??tomorrow -Add on CRP and Pro-Varinder, once back and if elevated consider trending -Acetaminophen 650 mg as needed pain ?? Anson Gestalt Plan: -Continue home medications??clobazam 10 mg a.m., 5 mg p.m., 50 mg??at bedtime ??? Continue home??Depakote??1250 mg??twice daily ??? Continue home Topamax 200 mg twice daily ?Continue home guanfacine 1 mg twice daily and clonidine 0.1 mg??at bedtime ?Ativan 2 mg as needed seizure activity ordered ?? Hypothyroidism Continue home levothyroxine 88 mg??daily in the morning -Patient also on?? control at home for amenorrhea,??make sure??patient has an can order as patient's own??med ?? Fluids/electrolytes:??P.o. and IV fluids Nutrition: Regular diet and maintenance fluids VTE prophylaxis: not indicated COVID: Tested??neg on 07/20 Isolation precautions: none Parent/Guardian: mom Updated on 07/20 Dispo: Pending improvement??in fever,??and appropriate antimicrobial regimen possibly p.o. ?? Patient to be discussed with morning attending Brooke Frausto MD Pediatrics PGY3 ?? The above note was dictated with the assistance of [employer] voice technology please feel free to contact me??via cortex regarding any errors in judge clerk Histories Allergies Allergies ?(Active and Proposed Allergies Only) NKA? (Severity: Unknown severity, Onset: Unknown) ? Past Medical History/Problem List Active Problems??(3) Hypothyroidism Angelina-Gastaut syndrome Mental retardation Autism ? Past Surgical History None ?? Social History Tobacco Details:??Never smoker ? Family History No family history recorded. ? Medications Home Medications Clobazam (clobazam 10 mg oral tablet)?1?tab(s)?10?Milligram?By Mouth?2 times a day Clobazam (Onfi 10 mg oral tablet)?0.5?tab(s)?5?Milligram?By Mouth?Daily?0.5 tablet in AM; 1 tablet at bedtime Clonidine (cloNIDine 0.1 mg oral tablet)?See Instructions?0.25 tablet By Mouth in AM Diazepam (Diastat AcuDial 10 mg rectal kit)?See Instructions?7.5mg Rectally Once for convulsive seizure > 3 minutes. Divalproex Sodium?By Mouth Ethinyl Estradiol-Levonorgestrel (ethinyl estradiol-levonorgestrel 30 mcg-0.15 mg oral tablet)?1?tab(s)?By Mouth?Daily Ferrous Sulfate (ferrous sulfate 325 mg oral enteric coated tablet)?325?Milligram?1?tablet?By Mouth?2 times a day Guanfacine?By Mouth Levothyroxine (levothyroxine 0.088 mg oral tablet)?1?tab(s)?88?Microgram?By Mouth?Daily Melatonin?Daily at bedtime Topiramate (topiramate 100 mg oral tablet)?2.5?tab(s)?250?Milligram?By Mouth?2 times a day?for 30?Days Valproic Acid (valproic acid 250 mg/5 mL oral syrup)?See Instructions?17.5 mL By Mouth 2 times a day ? Results Recent Labs BLOOD COUNT & DIFF WBC 6.7 k/mm3 ()?? 07/19/2022 23:50 RBC 4.16 m/mm3 (Low)?? 07/19/2022 23:50 Hgb 13.0 Gm/dL ()?? 07/19/2022 23:50 Hct 41.2 % ()?? 07/19/2022 23:50 MCV 99.0 femtoliters ()?? 07/19/2022 23:50 MCH 31.3 pg ()?? 07/19/2022 23:50 MCHC 31.6 g/dL (Low)?? 07/19/2022 23:50 Platelet Count 97 k/mm3 (Low)?? 07/19/2022 23:50 RDW-SD 43.7 femtoliters ()?? 07/19/2022 23:50 MPV 11.4 femtoliters ()?? 07/19/2022 23:50 Nucleated RBC (Automated) 0.0 #/100 WBC'S ()?? 07/19/2022 23:50 Abs. NRBC 0.0 k/mm3 ()?? 07/19/2022 23:50 Abs. Neut 4.2 k/mm3 ()?? 07/19/2022 23:50 Abs. Lymph 1.3 k/mm3 ()?? 07/19/2022 23:50 Abs. Pierce 1.2 k/mm3 (High)?? 07/19/2022 23:50 Abs. Eo 0.0 k/mm3 ()?? 07/19/2022 23:50 Abs. Baso 0.0 k/mm3 ()?? 07/19/2022 23:50 Neut % 62.1 % ()?? 07/19/2022 23:50 Lymph % 19.8 % ()?? 07/19/2022 23:50 Pierce % 17.9 % (High)?? 07/19/2022 23:50 Eos % 0.0 % ()?? 07/19/2022 23:50 Baso % 0.1 % ()?? 07/19/2022 23:50 Imm Gran 0.1 % ()?? 07/19/2022 23:50 Abs. Imm Gran 0.0 k/mm3 ()?? 07/19/2022 23:50 ?? CHEM GENERAL Sodium 142 mmol/L ()?? 07/19/2022 23:50 Potassium 3.9 mmol/L ()?? 07/19/2022 23:50 Chloride 107 mmol/L ()?? 07/19/2022 23:50 Bicarbonate Level 25 mmol/L ()?? 07/19/2022 23:50 Anion Gap 10 ()?? 07/19/2022 23:50 Glucose Level 124 mg/dL (High)?? 07/19/2022 23:50 Glucose, POC 138 mg/dL (High)?? 07/19/2022 23:31 BUN 13 mg/dL ()?? 07/19/2022 23:50 Creatinine-Blood 0.4 mg/dL (Low)?? 07/19/2022 23:50 Estimated GFR Creatinine 146 ML/MIN/1.73 M2 ()?? 07/19/2022 23:50 Calcium 9.6 mg/dL ()?? 07/19/2022 23:50 Protein, Total 6.9 Gm/dL ()?? 07/19/2022 23:50 Albumin 4.0 Gm/dL ()?? 07/19/2022 23:50 AG Ratio 1.4 ()?? 07/19/2022 23:50 Alkaline Phosphatase 74 units/L ()?? 07/19/2022 23:50 AST (SGOT) 13 units/L ()?? 07/19/2022 23:50 ALT (SGPT) 6 units/L ()?? 07/19/2022 23:50 Bilirubin, Total <0.2 mg/dL ()?? 07/19/2022 23:50 ?? HEME OTHER Hold Blue Top SPECIMEN DISCARDED AFTER 4 HOURS. ()?? 07/19/2022 23:50 ?? MISC. CHEMISTRY Hold Green Top SPECIMEN DISCARDED AFTER 1 WEEK ()?? 07/19/2022 23:50 ?? TOXICOLOGY/TDM Valproic Level 127.3 mg/L (High)?? 07/19/2022 23:50 ?? UA/URINALYSIS Appear/Color, Urine LIGHT YELLOW ()?? 07/20/2022 00:04 Specific [place], Urine 1.015 ()?? 07/20/2022 00:04 pH, Urine 8.0 ()?? 07/20/2022 00:04 Albumin, Urine 3+ (Abnormal)?? 07/20/2022 00:04 Glucose, Urine NEGATIVE ()?? 07/20/2022 00:04 Ketones, Urine NEGATIVE ()?? 07/20/2022 00:04 Bilirubin, Urine NEGATIVE ()?? 07/20/2022 00:04 Hemoglobin, Urine 2+ (Abnormal)?? 07/20/2022 00:04 Nitrite, Urine NEGATIVE ()?? 07/20/2022 00:04 Leukocyte, Urine 3+ (Abnormal)?? 07/20/2022 00:04 Urobilinogen NORMAL mg/dL ()?? 07/20/2022 00:04 WBC's, Urine >182 /HPF (High)?? 07/20/2022 00:04 RBC's, Urine >182 /HPF (High)?? 07/20/2022 00:04 Bacteria MODERATE HPF (Abnormal)?? 07/20/2022 00:04 Squamous Epith 10 /HPF (High)?? 07/20/2022 00:04 Mucus SLIGHT /LPF ()?? 07/20/2022 00:04 Hold Urine Culture Testing available 48 hours from time of collection. ()?? 07/20/2022 00:04 ?? VIROLOGY Influenza A PCR NEGATIVE ()?? 07/20/2022 00:05 Influenza B PCR NEGATIVE ()?? 07/20/2022 00:05 RSV PCR NEGATIVE ()?? 07/20/2022 00:05 COVID-19 PCR Specimen Source NASAL ()?? 07/20/2022 00:05 COVID-19 PCR Result NEGATIVE ()?? 07/20/2022 00:05 ? CBC, CBC w/Diff?? CBC?? Differential?? WBC: 6.7 k/mm3 (23:50) Abs. Neut: 4.2 k/mm3 (23:50) RBC:??4.16 m/mm3??Low (23:50) Abs. Lymph: 1.3 k/mm3 (23:50) Hct: 41.2 % (23:50) Abs. Pierce:??1.2 k/mm3??High (23:50) RDW-SD: 43.7 femtoliters (23:50) Abs. Eo: 0 k/mm3 (23:50) Nucleated RBC (Automated): 0 #/100 WBC'S (23:50) Abs. Baso: 0 k/mm3 (23:50) Abs. NRBC: 0 k/mm3 (23:50) Neut %: 62.1 % (23:50) ?? Lymph %: 19.8 % (23:50) ?? Pierce %:??17.9 %??High (23:50) ?? Eos %: 0 % (23:50) ?? Baso %: 0.1 % (23:50) ?? Imm Gran: 0.1 % (23:50) ?? Abs. Imm Gran: 0 k/mm3 (23:50) ? Hospital Progress note * Alka Lora RN: PERFORM, SIGN, VERIFY Event Display: Progress Note Hospital Authored Date: Patient: TRAY HAYWARD Age: 21 years Sex: Female : 2000 Associated Diagnoses: None Author: Alka Lora RN Findings Problem Related to Alteration in Genitourinary : Alteration in Genitourinary Function/new 07/20/2022 11:00 EST Alteration in Status Related to UTI Goals & Outcomes, Genitourinary Pt will achieve normal/improved fluid balance, Pt will maintainadequate GI function appropriate for pt, Pt will maintain adequate function appropriate for pt, Pt will maintain normal fluid balance, Pt will resume normal pattern of elimination, Pt/caregiver will state understanding of self-care skills, Resolved problem, Goals/Outcomes met Interventions, Assess/monitor/maintain Genitourinary status, Assist & encourage pt with meticulous sue care, Encourage PO fluid intake as allowed by diet BH Goals/Interventions, Genitourinary Yes Genitourinary, Problem Start 07/20/2022 5:00 Reviewed Plan with, Genitourinary Mother Patient Progression, Genitourinary Patient progressing according to plan Genitourinary, Problem Ongoing Yes . Evaluation (VSS, afebrile throughout shift. LSCTA. + BSx4, drinking water and milk. Mom reports that patient is drinking fluids at baseline. All medications completed using chocolate ice cream. Making wet diapers. BMx1 this shift with suppository usage. Patient incontinent at baseline. Non verbal and delayed at baseline. Iv to right hand removed, Iv to right Ac removed, both site CDI. Plan to discharge home today, will continue to monitor. Mom at bedside, involved in care. ) * Anabel Pierson RN: PERFORM, SIGN, VERIFY Event Display: Progress Note Hospital Authored Date: [id number] Patient: TRAY HAYWARD Age: 21 years Sex: Female : 2000 Associated Diagnoses: None Author: Anabel Pierson RN Findings Problem Related to Alteration in Genitourinary : Alteration in Genitourinary Function/new. Evaluation VSS, Pt afebrile. Tylenol given x1 for pain and discomfort with adequate relief. Home meds in Pt bin, pharmacy called and notified of pt labels needed. PIV patent and intact, infusing IV fluids without difficulty. All questions and concerns addressed per RN. . Note * Alka Lora RN: PERFORM Event Display: Discharge/Transfer Note Hospital Authored Date: [id number] Nursing Discharge Note Entered On: 07/20/2022 16:36 EST Performed On: 07/20/2022 16:36 EST by Alka Lora RN Nursing Discharge Note 2 Discharge Time : 07/20/2022 16:30 EST Discharge Level of Care at Discharge : Home/Long Term/Foster Care Patient Left Unit Via : Wheelchair Patient Accompanied Off Unit with : Parent DC Instructions Provided & Signed by Pt : Yes Patient Understands D/C Instructions : Yes Patient Instructions Discharge Signed : Yes Did Pt have Specialty Bed or Wound Vac : No Geno RN, Alka - 07/20/2022 16:36 EST * Martin ESCOBAR, Ozzieame: PERFORM Event Display: Discharge/Transfer Note Hospital Authored Date: Patient: ??TRAY HAYWARD ? Age:??21 Years?Sex:??Female?:??2000?? 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 _ Discharge Medications Cefpodoxime (cefpodoxime 200 mg oral tablet)?1?tab(s)?200?Milligram?By Mouth?Every 12 hours?for 9?Days Clobazam (clobazam 10 mg oral tablet)?1?tab(s)?10?Milligram?By Mouth?2 times a day Clobazam (Onfi 10 mg oral tablet)?0.5?tab(s)?5?Milligram?By Mouth?Daily?0.5 tablet in AM; 1 tablet at bedtime Clonidine (cloNIDine 0.1 mg oral tablet)?See Instructions?0.25 tablet By Mouth in AM Diazepam (Diastat AcuDial 10 mg rectal kit)?See Instructions?7.5mg Rectally Once for convulsive seizure > 3 minutes. Divalproex Sodium?By Mouth Ethinyl Estradiol-Levonorgestrel (ethinyl estradiol-levonorgestrel 30 mcg-0.15 mg oral tablet)?1?tab(s)?By Mouth?Daily Ferrous Sulfate (ferrous sulfate 325 mg oral enteric coated tablet)?325?Milligram?1?tablet?By Mouth?2 times a day Guanfacine?By Mouth Levothyroxine (levothyroxine 0.088 mg oral tablet)?1?tab(s)?88?Microgram?By Mouth?Daily Melatonin?Daily at bedtime Topiramate (topiramate 100 mg oral tablet)?2.5?tab(s)?250?Milligram?By Mouth?2 times a day?for 30?Days Valproic Acid (valproic acid 250 mg/5 mL oral syrup)?See Instructions?17.5 mL By Mouth 2 times a day ? Allergies Allergies ?(Active and Proposed Allergies Only) NKA? (Severity: Unknown severity, Onset: Unknown) ? PCP Follow-Up/Heads-Up Please follow up with urine culture and blood cultures Hospital Course 21 y/o with PMHx of Angelina-Gastaut, hypothyroidism and constipation who presented for lethargy, abdominal pain, rigors (different from her seizure episodes) and admitted for sepsis 2/2 to UTI. In theED, patient was febrile and tachycardic and found to have UA positive for blood, albumin and leukocytes. CT results significant for cystitis, Per read cannot rule out pyelonephritis given no contrastwas used for CT. Negative for nephrolithiasis. Procal also elevated. Creatinine and BUN were WNL. Patient received Ceftrixone and was started on fluids with good clinical improvement. Per mom she is back to her baseline therefore we will discharge home on antibiotics. Return precautions given. ?? Sepsis - In the setting of UTI - resolved - continue with good hydration - return precautions ?? UTI - continue with cefpodoxime?? - continue with good hydration - precautions given - follow up with PCP ? Objective Vital Signs?? Temperature: 98.2 DegF (07/20/22 08:00:00) Temperature Route: Axillary (07/20/22 08:00:00) Pulse Rate: 87 bpm (07/20/22 08:00:00) Respiratory Rate: 20 br/min (07/20/22 08:00:00) Systolic Blood Pressure: 103 mm Hg (07/20/22 08:00:00) Diastolic Blood Pressure: 63 mm Hg (07/20/22 08:00:00) Blood pressure sites: Arm, left (07/20/22 08:00:00) Mean Arterial Pressure: 73 mm Hg (07/20/22 04:56:00) Pulse Pressure: 52 mm Hg (07/20/22 04:56:00) Oxygen Saturation: 97 % (07/20/22 08:00:00) Mode of Delivery (Oxygen): Room air (07/20/22 08:00:00) Early Warning Score: 4 (07/20/22 03:09:48) Early Warning Score (Pedi): 0 (07/20/22 08:00:00) ? Intake/Output? 07/20 02:11 07/20 07:00 0308 07:00 0307 07:00 0306 07:00 ?? 07/20 12:07 07/20 12:07 09 06:59 08 06:59 07/18 06:59 Intake ?606.7 ?0 ?606.7 ?0 ?0 Output ?0 ?0 ?0 ?0 ?0 Net Total ?606.7 ?0 ?606.7 ?0 ?0 ? Urine Count ?1 ?0 ?1 ?0 ?0 ? . Physical Exam Constitutional: Alert, in no distress. HEENT: neck supple, conjunctivae clear. Respiratory: Clear to auscultation. No wheezing, rales or rhonchi. Cardiovascular: S1 S2 regular. No murmurs, rubs or gallops. Gastrointestinal: Abdomen soft, non-tender to palpation, non-distended. Normal bowel sounds. Skin: warm and dry Pending Results Add On Lab Order ordered on 07/20/2022 Add On Lab Order ordered on 07/20/2022 Blood Culture ordered on 07/20/2022 Blood Culture #2 ordered on 07/20/2022 COVID-19, RSV, and Flu A/B, Rapid PCR ordered on 07/20/2022 Urinalysis w/hold for Urine Culture ordered on 07/20/2022 Follow-Up Appointments Added Follow Up ?Time Frame ?Comments Mariam ESCOBAR , Kristina Lewis?1 ?? Weeks Patient Instructions Tray presented for lethargy and abdominal pain and was found to have a urinary tract infection. We usually see this more in girls than in boys because a girl's urethra (the tube that goes from their bladder to the outside) is very short; if bacteria get into the urethra, they can swim into the bladder and cause an infection.?? UTIs can cause fever, vomiting, and fatigue; people sometimes complain of burning when they urinate, or blood in their urine.?? At this time we do not know the exact bacteria causing her infection; we have prescribed her an antibiotic based on what we think will work, but sometimes it turns out that the antibiotic we have prescribed is the wrong one.?? There is a urine culture in the lab that will tell us which antibiotic is best in a couple of days and your primary care provider will contact you if??the antibiotics need to be changed.? Make sure that??Tray??is drinking plenty of fluids; she needs to drink extra, if possible, tohelp flush out her infection.?? She may have some nausea and she is more likely to throw up if she eats solids, so if she has nausea or vomiting, stick to clear liquids.?? She may have a fever for the next 1-2 days as it takes a couple of days for the antibiotics to work; you can treat her with Tylenol or Motrin.?? It is important to note that if you are at all worried that she is dehydrated, you should not give her Motrin.? Come back to the emergency department if she is not drinking any fluids, if she is vomiting a lot, if she is not acting like herself, or if you have any other major concerns. Home Health Face to Face ^HomeHealthFTF Results Discharge Labs BLOOD COUNT & DIFF WBC 6.7 k/mm3 ()?? 07/19/2022 23:50 RBC 4.16 m/mm3 (Low)?? 07/19/2022 23:50 Hgb 13.0 Gm/dL ()?? 07/19/2022 23:50 Hct 41.2 % ()?? 07/19/2022 23:50 MCV 99.0 femtoliters ()?? 07/19/2022 23:50 MCH 31.3 pg ()?? 07/19/2022 23:50 MCHC 31.6 g/dL (Low)?? 07/19/2022 23:50 Platelet Count 97 k/mm3 (Low)?? 07/19/2022 23:50 RDW-SD 43.7 femtoliters ()?? 07/19/2022 23:50 MPV 11.4 femtoliters ()?? 07/19/2022 23:50 Nucleated RBC (Automated) 0.0 #/100 WBC'S ()?? 07/19/2022 23:50 Abs. NRBC 0.0 k/mm3 ()?? 07/19/2022 23:50 Abs. Neut 4.2 k/mm3 ()?? 07/19/2022 23:50 Abs. Lymph 1.3 k/mm3 ()?? 07/19/2022 23:50 Abs. Pierce 1.2 k/mm3 (High)?? 07/19/2022 23:50 Abs. Eo 0.0 k/mm3 ()?? 07/19/2022 23:50 Abs. Baso 0.0 k/mm3 ()?? 07/19/2022 23:50 Neut % 62.1 % ()?? 07/19/2022 23:50 Lymph % 19.8 % ()?? 07/19/2022 23:50 Pierce % 17.9 % (High)?? 07/19/2022 23:50 Eos % 0.0 % ()?? 07/19/2022 23:50 Baso % 0.1 % ()?? 07/19/2022 23:50 Imm Gran 0.1 % ()?? 07/19/2022 23:50 Abs. Imm Gran 0.0 k/mm3 ()?? 07/19/2022 23:50 ?? CHEM GENERAL Sodium 142 mmol/L ()?? 07/19/2022 23:50 Potassium 3.9 mmol/L ()?? 07/19/2022 23:50 Chloride 107 mmol/L ()?? 07/19/2022 23:50 Bicarbonate Level 25 mmol/L ()?? 07/19/2022 23:50 Anion Gap 10 ()?? 07/19/2022 23:50 Glucose Level 124 mg/dL (High)?? 07/19/2022 23:50 Glucose, POC 138 mg/dL (High)?? 07/19/2022 23:31 BUN 13 mg/dL ()?? 07/19/2022 23:50 Creatinine-Blood 0.4 mg/dL (Low)?? 07/19/2022 23:50 Estimated GFR Creatinine 146 ML/MIN/1.73 M2 ()?? 07/19/2022 23:50 Calcium 9.6 mg/dL ()?? 07/19/2022 23:50 Protein, Total 6.9 Gm/dL ()?? 07/19/2022 23:50 Albumin 4.0 Gm/dL ()?? 07/19/2022 23:50 AG Ratio 1.4 ()?? 07/19/2022 23:50 Alkaline Phosphatase 74 units/L ()?? 07/19/2022 23:50 AST (SGOT) 13 units/L ()?? 07/19/2022 23:50 ALT (SGPT) 6 units/L ()?? 07/19/2022 23:50 Bilirubin, Total <0.2 mg/dL ()?? 07/19/2022 23:50 C-Reactive Protein 0.4 mg/dL ()?? 07/19/2022 23:50 ? ENDOCRINE/TUMOR MARKER Blood <1 mIU/mL ()?? 07/19/2022 23:50 ? HEME OTHER Hold Blue Top SPECIMEN DISCARDED AFTER 4 HOURS. ()?? 07/19/2022 23:50 ? MISC. CHEMISTRY Hold Green Top SPECIMEN DISCARDED AFTER 1 WEEK ()?? 07/19/2022 23:50 Procalcitonin 0.05 ng/mL ()?? 07/19/2022 23:50 ?? TOXICOLOGY/TDM Valproic Level 127.3 mg/L (High)?? 07/19/2022 23:50 ? UA/URINALYSIS Appear/Color, Urine LIGHT YELLOW ()?? 07/20/2022 00:04 Specific [place], Urine 1.015 ()?? 07/20/2022 00:04 pH, Urine 8.0 ()?? 07/20/2022 00:04 Albumin, Urine 3+ (Abnormal)?? 07/20/2022 00:04 Glucose, Urine NEGATIVE ()?? 07/20/2022 00:04 Ketones, Urine NEGATIVE ()?? 07/20/2022 00:04 Bilirubin, Urine NEGATIVE ()?? 07/20/2022 00:04 Hemoglobin, Urine 2+ (Abnormal)?? 07/20/2022 00:04 Nitrite, Urine NEGATIVE ()?? 07/20/2022 00:04 Leukocyte, Urine 3+ (Abnormal)?? 07/20/2022 00:04 Urobilinogen NORMAL mg/dL ()?? 07/20/2022 00:04 WBC's, Urine >182 /HPF (High)?? 07/20/2022 00:04 RBC's, Urine >182 /HPF (High)?? 07/20/2022 00:04 Bacteria MODERATE HPF (Abnormal)?? 07/20/2022 00:04 Squamous Epith 10 /HPF (High)?? 07/20/2022 00:04 Mucus SLIGHT /LPF ()?? 07/20/2022 00:04 Hold Urine Culture Testing available 48 hours from time of collection. ()?? 07/20/2022 00:04 ? VIROLOGY Influenza A PCR NEGATIVE ()?? 07/20/2022 00:05 Influenza B PCR NEGATIVE ()?? 07/20/2022 00:05 RSV PCR NEGATIVE ()?? 07/20/2022 00:05 COVID-19 PCR Specimen Source NASAL ()?? 07/20/2022 00:05 COVID-19 PCR Result NEGATIVE ()?? 07/20/2022 00:05 ? Blood Glucose Trend Glucose Level:??124 mg/dL??High (07/19/22 23:50:00) Glucose, POC:??138 mg/dL??High (07/19/22 23:31:00) ? Imaging(s) ?Chest Portable ?? 07/20/2022 00:29??by Darwin Calderón MD ?Low lung volumes without acute cardiopulmonary process. ?CT Abdomen and Pelvis W/O Contrast ?? 07/20/2022 03:33??by Shirley Cohen MD ?Diffuse wall thickening with moderate stranding around the urinary bladder consistent with cystitis. Pyelonephritis is suboptimally evaluated without IV contrast. ?? No renal/ureteral stone or evidence of obstructive uropathy. ?? Partially imaged density in the lung bases, most likely atelectasis. Concurrent aspiration is less likely but not fully not excluded. ? Viridiana Salazar MD Examining Chair Assembler, PGY-2 * Geno VAUGHAN, Alka: PERFORM Event Display: Patient Education/Instruction Authored Date: Inpatient Pedi Discharge Instructions [address] [address] Name: TRAY HAYWARD : 2000 Visit: 07/20/2022 02:11:00 Current Date: 07/20/2022 15:33 Account: [id number] Inpatient Pedi Discharge Instructions We would like to thank you for allowing us to assist you with your healthcare needs. The following includes patient education materials and information regarding your injury/illness. Our entire staffstrives to provide an excellent experience for our patients and their families. PLEASE ENSURE YOU FOLLOW-UP PER THE INSTRUCTIONS BELOW! ?? YOUR OPINION IS IMPORTANT TO US! Please complete the survey you may receive by mail or email. Your feedback will be used to make improvements to the healthcare experiences of our patients and their families. Surveys are administered by [employer] ?? If further treatment with your primary care physician or another doctor is recommended, it is important for you to keep the appointment. Call your primary care physician or return to the Emergency Department immediately if your condition worsens, fails to improve, or new symptoms develop. If you need to find a doctor, you can call [facility] [employer] for a referral at [phone] or toll free at [phone] or log in to [email or web address].. ?? You can view and manage your care through the patient portal or by using a health care rogelio of your choosing. [employer] is a website that allows you to securely view your medical information including your hospital discharge summary, office visit summaries, medications and follow-up visits. You can also request appointments, renew medications, and request access to your medical information using a health care rogelio of your choosing, or just ask a question. You can enroll at [email or web address] or register during your next office visit. You have been discharged from [facility], Patient Care Unit: [facility]. If you have any questions regarding these instructions after you leave, please call us and we will be happy to assist you. [facility] Your Care Team Attending Physician Elton ESCOBAR, Aida Lewis Discharging Providers Gal ESCOBAR, Jennifer Edouard Reason for Admission Fever Your Diagnosis Sepsis Urinary tract infection Hypothyroid Anson-Gastaut syndrome Tests Performed Below is a partial list of the tests performed during your hospitalization. You may have had other tests and procedures not included in this list. Please discuss all test results with your provider. C-REACTIVE PROTEIN CBC w/ Differential Comprehensive Metabolic Panel COVID-19, RSV, FLU A/B PCR Depakote Level GLUCOSE POC HOLD BLUE TUBE HOLD GREEN TUBE BLOOD QUANTITATIVE PROCALCITONIN, SERUM CT Abdomen and Pelvis W/O Contrast XR Chest Portable Primary Care Provider Kristina Becerra MD Advance Directive Health Care Proxy on File No Patient is <18 years old Discharge Vitals Temperature: 97.8 DegF Height: 142 cm Pulse Rate: 71 bpm Weight: 56.6 kg Respiratory Rate: 16 br/min Body Mass Index:??28.07 kg/m2??High Systolic Blood Pressure: 102 mm Hg Body surface area: 1.49 Diastolic Blood Pressure: 57 mm Hg BSA Barron: 1.45 Oxygen Saturation: 98 % ?? Studies Pending All tests and labs ordered during this hospital stay have been completed unless listed below. Please discuss all pending results with your provider listed above in these instructions. ?? Add On Lab Order Blood Culture Blood Culture #2 COVID-19, RSV, and Flu A/B, Rapid PCR Urinalysis w/hold for Urine Culture What to do next Instructions From Your Doctor Tray presented for lethargy and abdominal pain and was found to have a urinary tract infection. We usually see this more in girls than in boys because a girl's urethra (the tube that goes from their bladder to the outside) is very short; if bacteria get into the urethra, they can swim into the bladder and cause an infection.?? UTIs can cause fever, vomiting, and fatigue; people sometimes complain of burning when they urinate, or blood in their urine.?? At this time we do not know the exact bacteria causing her infection; we have prescribed her an antibiotic based on what we think will work, but sometimes it turns out that the antibiotic we have prescribed is the wrong one.?? There is a urine culture in the lab that will tell us which antibiotic is best in a couple of days and your primary care provider will contact you if??the antibiotics need to be changed.? Make sure that??Tray??is drinking plenty of fluids; she needs to drink extra, if possible, tohelp flush out her infection.?? She may have some nausea and she is more likely to throw up if she eats solids, so if she has nausea or vomiting, stick to clear liquids.?? She may have a fever for the next 1-2 days as it takes a couple of days for the antibiotics to work; you can treat her with Tylenol or Motrin.?? It is important to note that if you are at all worried that she is dehydrated, you should not give her Motrin.? Come back to the emergency department if she is not drinking any fluids, if she is vomiting a lot, if she is not acting like herself, or if you have any other major concerns. Discharge Orders You Need to Schedule the Following Appointments Follow Up with??Mariam ESCOBAR , Kristina Lewis When??In 1 week Where: [address] [place] [id number] Discharge Medications MAINOR TRIJUSTINEELIZABETHJESSE :2000 Visit Date:07/20/2022 Medications: Please continue your medications until treatment is completed or stopped by your provider. Medications not listed below should be discontinued. Discuss any questions related to medications with your provider. What How Much When Instructions Next Dose New Cefpodoxime (cefpodoxime 200 mg oral tablet) 1 tab(s) Oral Every 12 hours Duration: 9 Days Pickup at [facility] 3 today 9pm Unchanged Clobazam (clobazam 10 mg oral tablet) 1 tab(s) Oral Twice a day today 9pm Unchanged Clobazam (Onfi 10 mg oral tablet) 0.5 tab(s) Oral Daily 0.5 tablet in AM; 1 tablet at bedtime ?? today 5pm Unchanged Clonidine (cloNIDine 0.1 mg oral tablet) See instructions 0.25 tablet By Mouth in AM ?? follow home routine Unchanged Diazepam (Diastat AcuDial 10 mg rectal kit) See instructions 7.5mg Rectally Once for convulsive seizure > 3 minutes. ?? follow home routine Unchanged Divalproex Sodium Oral follow home routine Unchanged Ethinyl Estradiol-Levonorgestrel (ethinyl estradiol-levonorgestrel 30 mcg-0.15 mg oral tablet) 1 tab(s) Oral Daily follow home routine Unchanged Ferrous Sulfate (ferrous sulfate 325 mg oral enteric coated tablet) 1 tab(s) Oral Twice a day follow home routine Unchanged Guanfacine Oral follow home routine Unchanged Levothyroxine (levothyroxine 0.088 mg oral tablet) 1 tab(s) Oral Daily follow home routine Unchanged Melatonin Daily at Bedtime follow home routine Unchanged Topiramate (topiramate 100 mg oral tablet) 2.5 tab(s) Oral Twice a day Duration: 30 Days follow home routine Unchanged Valproic Acid (valproic acid 250 mg/ 5 mL oral syrup) See instructions 17.5 mL By Mouth 2 times a day ?? follow home routine [facility] [address] [place], [place] [id number] [phone] Test Results Below is a partial list of the most recent Laboratory test results done prior to this discharge. You may have had other tests and procedures not included in this list. Please discuss all test resultswith your provider. C-REACTIVE PROTEIN (07/19/2022) ???C-Reactive Protein - 0.4 mg/dL CBC w/ Differential (07/19/2022) ???WBC - 6.7 k/mm3???RBC - 4.16 m/mm3???Hgb - 13.0 Gm/dL???Hct - 41.2 %???MCV - 99.0 femtoliters???MCH - 31.3 pg???MCHC - 31.6 g/dL???Platelet Count - 97 k/mm3???RDW-SD - 43.7 femtoliters???MPV - 11.4 femtoliters???Nucleated RBC (Automated) - 0.0 #/100 WBC'S???Abs. NRBC - 0.0 k/mm3???Abs. Neut - 4.2 k/mm3???Abs. Lymph - 1.3 k/mm3???Abs. Pierce - 1.2 k/mm3???Abs. Eo - 0.0 k/mm3???Abs. Baso - 0.0 k/mm3???Neut % - 62.1 %???Lymph % - 19.8 %???Pierce % - 17.9 %???Eos % - 0.0 %???Baso % - 0.1 %???Imm Gran - 0.1 %???Abs. Imm Gran - 0.0 k/mm3 Comprehensive Metabolic Panel (07/19/2022) ???Sodium - 142 mmol/L???Potassium - 3.9 mmol/L???Chloride - 107 mmol/L???Bicarbonate Level - 25 mmol/L???Anion Gap - 10???Glucose Level - 124 mg/dL???BUN - 13 mg/dL???Creatinine-Blood - 0.4 mg/dL???Estimated GFR Creatinine - 146 ML/MIN/1.73 M2???Calcium - 9.6 mg/dL???Protein, Total - 6.9 Gm/dL???Al bumin - 4.0 Gm/dL???AG Ratio - 1.4???Alkaline Phosphatase - 74 units/L???AST (SGOT) - 13 units/L???ALT (SGPT) - 6 units/L? ?Bilirubin, Total - <0.2 mg/dL COVID-19, RSV, FLU A/B PCR (07/20/2022) ???Influenza A PCR - NEGATIVE???Influenza B PCR - NEGATIVE???RSV PCR - NEGATIVE???COVID-19 PCR Specimen Source - NASAL???COVID-19 PCR Result - NEGATIVE Depakote Level (07/19/2022) ???Valproic Level - 127.3 mg/L GLUCOSE POC (07/19/2022) ???Glucose, POC - 138 mg/dL HOLD BLUE TUBE (07/19/2022) ???Hold Blue Top - SPECIMEN DISCARDED AFTER 4 HOURS. HOLD GREEN TUBE (07/19/2022) ???Hold Green Top - SPECIMEN DISCARDED AFTER 1 WEEK BLOOD QUANTITATIVE (07/19/2022) ? ?Blood - <1 mIU/mL PROCALCITONIN, SERUM (07/19/2022) ???Procalcitonin - 0.05 ng/mL Allergies (NKA means No Known Allergies) NKA Problems Active Problems??(3) Hypothyroidism?? 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 Education Materials Below is the list of Educational Leaflet Providered with your Discharge Instructions. Valuables and Belongings I fully understand and agree that [facility] accepts no responsibility for all my personal property including clothing, toilet articles, radios, jewelry, dentures, hearing aids, rings, money, or any other property that is in my possession or is brought to me after admission. I understand certain valuables may be placed in a hospital safe for a short period of time. I understand that the hospital is not liable for loss or damage due to accident, fire, or other natural occurrence while said property is in the safe. I accept full responsibility for any personal property that I keep with me, and will not hold the hospital responsible in case of loss or disappearance. I acknowledge that i have been encouraged to send valuables and belongings home. ?? Review of Valuable and Belonging List: With patient Possessions released to: No medical ??Advices Date for Pt to Sign Valuables/Belongings: 07/20/22 07:52:00 ?? Other Discharge Information ? Pulmonary Rehab Status?? Pulmonary Rehab Discharge Status?? Respiratory Rate: 16 br/min ? Common Emergency Awareness Tips IS IT A STROKE? Act FAST and Check for these signs: FACE Does the face look uneven? ARM Does one arm drift down? SPEECH Does their speech sound strange? TIME Call at any sign of stroke ?? Heart Attack Signs Chest discomfort: Most heart attacks involve discomfort in the center of the chest and lasts more than a few minutes, or goes away and comes back. It can feel like uncomfortable pressure, squeezing, fullness or pain. Discomfort in upper body: Symptoms can include pain or discomfort in one or both arms, back, neck, jaw or stomach. Shortness of breath: With or without discomfort. Other signs: Breaking out in a cold sweat, nausea, or lightheaded. Remember, MINUTES DO MATTER. If you experience any of these heart attack warning signs, call to get immediate medical attention! ?? Smoking can increase your chances of developing chronic health problems and can cause harmful effects to other family members in your house. If you smoke, you are strongly encouraged to quit. Please call [facility] [email or web address] Link at [phone] or [phone] ([phone]) or log in to [email or web address] for referrals to smoking cessation programs. ?? The National Suicide Prevention Hotline is available 04/12 if you or someone you know needs to find a reason to keep living. By calling 6-816-471-uqrg (1654) you'll be connected to a skilled, trained counselor at a crisis center in your area. INPATIENT DISCHARGE INSTRUCTIONS SIGNATURE TRAY PÉREZ Location:[facility] Registration Date and Time:07/20/2022 02:[address] [facility] Primary Care Physician: Mariam ESCOBAR , Kristina Lewis, I HAYWARD, DILIAJESSE, have received the above patient education materials/instructions and have verbalized understanding. If ambulance or transport services are being used I further acknowledge beinggiven a choice of service. ?? If you need to contact me, please call me at this number: . Patient/Information Technology Data Analyst Name: Patient/Information Technology Data Analyst Signature: Relationship to Patient: Witness Name/Signature: Date: * Alka Lora RN: PERFORM Event Display: Patient Education Leaflets Authored Date: [id number] Anatomy of the Female Urinary Tract ?? 26435 Anatomy of the Female Urinary Tract Your urinary tract helps??get rid of urine, your body???s liquid waste. The kidneys collect chemicals and water your body doesn???t need. This is turned into urine. Urine??travels out of the kidneys through the ureters to the bladder. The bladder holds urine until you???re ready to release it. The urethra carries urine from the bladder out of the body.??The main sphincter muscle circles the mid-urethra.??It keeps your urethra closed. When you urinate, your brain tells the sphincter to relax so you can release urine. Front view of female urinary tract. Last Reviewed Date: 2021 ?? [id number] [employer]. All rights reserved. This information is not intended as a substitute for professional medical care. Always follow your healthcare professional's instructions. ?? * Alka Lora RN: PERFORM Event Display: Patient Education Leaflets Authored Date: [id number] Urinary Tract Infections in Women ?? 79636 Urinary Tract Infections in Women Urinary tract infections (UTIs) are most often caused by??bacteria. These bacteria enter the urinary tract. The bacteria may come from inside the body. Or they may travel from the skin outside the??rectum or vagina into the urethra. Female anatomy makes it easy for bacteria from the bowel??to entera woman???s urinary tract, which is the most common source of UTI. This means women develop UTIs more often than men. Pain in or around the urinary tract is a common UTI symptom. But the only way to know for sure if you have a UTI for the healthcare provider to test your urine. The two tests that may be done are the urinalysis and urine culture. Types of UTIs ??? Cystitis. A bladder infection (cystitis) is the most common UTI in women. You mayhave urgent or frequent need to pee. You may also have??pain, burning when you pee, and bloody urine. ??? Urethritis. This is an inflamed urethra, which is the tube that carries urine from the bladder to outside the body. You may have lower stomach or back pain. You may also have urgent or frequentneed to pee. ??? Pyelonephritis. This is a kidney infection. If not treated, it can be serious and damage your kidneys. In severe cases, you may need to stay in the??hospital. You may have a fever and lower back pain. ?? Medicines to treat a UTI Most UTIs are treated with antibiotics. These kill the bacteria. The length of time you need to take them depends on the type of infection. It may be as short as 3 days. If you have repeated UTIs, you may need a low-dose antibiotic??for several months. Take antibiotics exactly as directed. Don???t stop taking them until all of the medicine is gone, even if you feel better. If you stop taking the antibiotic too soon, the infection may not go away. You may also develop a resistance to the antibiotic. This can make it much harder to treat. ?? Lifestyle changes to treat and prevent UTIs The lifestyle changes below will help get rid of your UTI. They may also help prevent future UTIs. ??? Drink plenty of fluids. This includes water, juice, or other caffeine-free drinks. Fluids help flush bacteria out of your body. ??? Empty your bladder. Always empty your bladder when you feel the urge to pee. And always pee before going to sleep. Urine that stays in your bladder can lead to infection. Try to pee before and after sex as well. ??? Practice good personal hygiene. Wipe yourself from front to back after using the toilet. This helps keep bacteria from getting into the urethra. ???Wear cotton underwear. Don't wear synthetic or tight-fitting underwear that can trap moisture. Change out of wet bathing suits and workout clothing quickly. ??? Take showers. Showers are better than baths for preventing UTIs. ??? Use condoms during sex. These help prevent UTIs caused by sexually transmitted bacteria. Also don't use spermicides during sex. These can increase the risk for UTIs. Choose other forms of control instead. For women who tend to get UTIs after sex, a low-dose of a p reventive antibiotic may be used. Be sure to discuss this option with your healthcare provider. ???Follow up with your healthcare provider as directed. They may test to make sure the infection has cleared. If needed, more treatment may be started. ?? Last Reviewed Date: 2021 ?? 9834-7740 [employer]. All rights reserved. This information is not intended as a substitute for professional medical care. Always follow your healthcare professional's instructions. ?? CT Abdomen and Pelvis WO contrast * [facility] , CIS S: TRANSCRIBE Haleigh Dumont DO P: Shirley Ochoa MD: VERIFY Event Display: Result: Authored Date: [id number] CT Abdomen and Pelvis W/O Contrast REASON: Somnolent, less responsive, fever. Flank pain, kidney stone suspected; Clinical Question(s): Calculus; Right Side flank TECHNIQUE: Spiral CT through the abdomen and pelvis without IV contrast formatted in 3 planes. Thisstudy was performed without oral contrast. Weight- based protocol using automatic tube modulation was used to optimize exposure parameters. CTDIvol Body: 4.60 mGy, DLP Body: 222 mGy*cm. COMPARISON: Retroperitoneal ultrasound 11/02/2010. FINDINGS: [facility] Findings, Lines and Tubes: None. Visualized Chest: Partially imaged density in the posterior lung bases. No pleural effusion. Diaphragm: Partially imaged. Unremarkable. Liver: Normal. Gallbladder: Collapsed. Unremarkable. Bile ducts: No biliary ductal dilation. Spleen: Normal. Pancreas: Normal. Adrenal glands: Normal. Kidneys and ureters: No hydronephrosis, stones, or noncontrast evidence of suspicious masses. Bladder: Partially distended with diffuse wall thickening and moderate surrounding stranding. Reproductive organs: Unremarkable. Stomach, small bowel, and large bowel: No bowel obstruction. Moderate stool burden. Appendix: 2 mm fecalith within the mid appendix. The appendix is otherwise normal without dilatation or periappendiceal inflammatory changes. Peritoneum and retroperitoneum: Moderate stranding within the pelvis. No ascites or pneumoperitoneum. Lymph nodes: No enlarged lymph nodes. Blood vessels: Normal. No aneurysm. Abdominal and pelvic wall: Unremarkable. Bones: No acute abnormality. IMPRESSION: Diffuse wall thickening with moderate stranding around the urinary bladder consistent with cystitis. Pyelonephritis is suboptimally evaluated without IV contrast. No renal/ureteral stone or evidence of obstructive uropathy. Partially imaged density in the lung bases, most likely atelectasis. Concurrent aspiration is less likely but not fully not excluded. I have personally reviewed the images and I agree with this report. WSN: [id number] Ordering Physician: Adan Pina Dictated By: Haleigh Dumont DO Dictated Date/Time: 07/20/22 6:56 am Reviewed By: Shirley Cohen MD Signed By: Shirley Cohen MD Signed Date/Time: 07/20/22 7:01 am Transcribed By: JANIA Transcribed Date/Time: 07/20/22 3:56 am Portable XR Chest Views * [facility] , CIS S: TRANSCRIBE Darwin Calderón MD: VERIFY Event Display: Result: Authored Date: [id number] Chest Portable Hx of Present Illness: fevers started this evening with shaking; Reason: Shortness of Breath; Clinical Question(s): CHF COMPARISON: None. FINDINGS: LINES AND TUBES: None. LUNGS AND PLEURA: Somewhat low lung volumes with atelectasis. No definite consolidation. No pleural effusion. No pneumothorax. HEART, MEDIASTINUM AND VITA: Heart is normal in size. Normal mediastinal and hilar contour. BONES AND SOFT TISSUES: No acute abnormality. IMPRESSION: Low lung volumes without acute cardiopulmonary process. WSN: [id number] Ordering Physician: Adan Pina Dictated By: Darwin Calderón MD Dictated Date/Time: 07/20/22 7:47 am Reviewed By: Darwin Calderón MD Signed By: Darwin Calderón MD Signed Date/Time: 07/20/22 7:47 am Transcribed By: JANIA Transcribed Date/Time: 07/20/22 7:46 am Patient Care team information Care Team Personnel Name: Kristina Becerra MD Position: [facility] Outreach Member Role: PCP Address: Address: [address] [place] [address]- [place] Name: Anabel Pierson RN Position: [facility] RN Member Role: Primary Care Nurse Name: Cristina Calixto MD Position: [facility] ED Medicine MD Member Role: ED Attending Physician Address: Address: [address] [place] [address] [place] [address]- [place] Name: Rica Power RN Position: [facility] ED RN W/OE and Tasks Name: Adan Marcial Position: [facility] Associate Professional Member Role: ED Physician Community Health Planning Director Address: Address: [address] [place] [address] Emergency [place], [place] [address] Name: Jennifer Fregoso RN Position: [facility] ED RN W/OE and Tasks Member Role: Patient Care Provider Care Team Related Persons Name: MAYA REYNOSO Address: home [address] [place] [id number] Name: MAYA REYNOSO Address: home [address] [address] Name: GAGE GONZALES Address: home [address] [address]
--- OUTSIDE RECORDS SUMMARY | 2023-07-03 05:52 | XMS_ITS | Continuity of Care Document ---
Author Name Unknown Organization [facility] Address [address] [place] [address]- Care Team Providers Care Career Development Coordinator Name Role Phone Mariam ESCOBAR, Kristina Lewis Primary Care Physician Encounter [facility] Date(s): 03/08/21 - 04/07/21 [facility] [address] [place] [id number]- Allergies, Adverse Reactions, Alerts Substance Reaction Severity [...] Replace Required Details, Route to Pharmacy Electronically, [id number], [id number] Start Date: 11/04/15 Status: Ordered Diastat AcuDial [...] Refills, Maintenance, 01/27/21 14:13:00 EDT, Tablet, [id number], Partial fill upon patient request if the prescription is for a schedule II opioid drug., 1 tablet By Mouth Daily, 57.2, kg, 01/24/21 14:... Start Date: 01/27/21 Status: Ordered ferrous sulfate 325 mg oral enteric coated tablet 325 mg, 1, tablet, By Mouth, 2 times a day, # 180 tablet, Refills 0, Tot. Refills 0, Maintenance, 02/24/19 12:44:09 EDT, Route to Pharmacy Electronically, [id number], [id number] Start Date: 02/24/19 Status: Ordered Guanfacine By Mouth, Refills 0, Maintenance, 08/30/17 23:27:36 EDT Start Date: 08/30/17 Status: Ordered levothyroxine 0.1 mg oral tablet 1 tablet = 100 mcg, By Mouth, Daily, # 30 tablet, 11 Refills, Maintenance, 01/27/21 14:12:00 EDT, [id number], Partial fill upon patient [...]
[2023-07-03 07:20] LABS: Appearance Urine Clear; Color Urine Orange; Glucose Urine UA Negative (Negative); Leukocyte Esterase Urine Small (1+) (Negative); Nitrite Urine Negative (Negative); PH 6.5 (5.0-9.0); Specific Gravity - Urine >= 1.030 (1.005-1.025); UMIC TRIGGER UACC YES; Urine Blood Large (3+) (Negative); Urine Ketones 15 mg/dL (Negative); Urine Protein 100 (2+) mg/dL (Neg-Trace)
[2023-07-03 07:21] LABS: UPreg QC Valid YES; Urine Pregnancy NEGATIVE (NEGATIVE)
[2023-07-03] MEDS: Piperacillin Sodium/Tazobactam 3.375 GM in 0.9 % Sodium Chloride 50 ML IV ×4 (07:21→22:52)
[2023-07-03 07:29] LABS: Bacteria Urine None Seen (None Seen); Hyaline Casts Urine 0-2 /LPF (0-2); RBC Urine >20 /HPF (0-2); Squamous Epithelial Cell Urine 0-2 /HPF (0-2); UACC Culture Trigger YES; WBC Urine 0-5 /HPF (0-5)
--- NOTE | 2023-07-03 08:23 | PC.NURSE ---
Bilat IV`s wrapped, mother reminded patient is NPO- mother stating she has given patient a few karissa sips of samira fernie. Requesting ice cream to give patient her thyroid meds, notified stating not to give meds at this time , mother aware
[2023-07-03] MEDS: 0.9 % Sodium Chloride 1,000 ML 100 ML IVCONT ×2 (10:16→21:35)
--- NOTE | 2023-07-03 10:18 | PHA.MEDREC ---
Pharmacy Consult ? Medication Reconciliation Pharmacy has completed the medication reconciliation. spoke with mother who knew all meds/doses and had the rx bottles with her.
--- NOTE | 2023-07-03 11:08 | P.HPGS_ITS ---
History of Present Illness History of Present Illness Date of Service: 07/03/23 Chief complaint: Abdominal Pain Narrative: Tray Pitts is a 22 year old female with cerebral palsy, seizure disorder, nonverbal and non communicative who lives with her mother. Her mother thought since yesterday she wasnt feeling well and thoght she may have a UTI. over the last 1-2 years she has been getting UTI and mom notices she is more lethargic, more wiggly, not wanting to let anyone touch her belly when that happens. She didnt have a fever at the time and nothing else seemed unusual. Then by midnight last night her Mom was more concerned as the pt was not herself and didnt want to drink anything ans so she called the ambulance to bring her to the hospital. Here labs showed wbc to be 13 and urine seems ok. Ct scan abdomen and pelvis shows inflammatory changes in the right lower quadrant without clear visulaization of the appendix. no abscess no free air. Probable appendicitis. Discussed with the radiologist and suggesting repeating the scan in a day or two with iv contrast. Pt here in the ER more alert and responsive and seems to be better. 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 Social History Social History Patient Tobacco Use Status: Never used Tobacco Advance Directives: No Advance Directives Information Provided: Yes Nutrition Risks: No Nutritional Risk Meds Allergies Allergy/AdvReac Type Severity Reaction Status Date / Time No Known Allergies Allergy Unverified 01/29/20 17:00 Active Medications: Current Medications Clobazam (Clobazam 10 Mg Tablet) 10 mg PO DAILY JULIO CESAR Clobazam (Clobazam 10 Mg Tablet) 15 mg PO BEDTIME JULIO CESAR Clobazam (Clobazam 10 Mg Tablet) 7.5 mg PO DAILY@1500 JULIO CESAR Sodium Chloride (Ns) 1,000 mls @ 100 mls/hr IVCONT .Q10H JULIO CESAR Last Admin: 07/03/23 10:16 Dose: 100 mls/hr Valproic Acid 1,250 mg/ (Dextrose) 62.5 mls @ 60 mls/hr IV BID COUNTS INCLUDE 234 BEDS AT THE [facility] Levothyroxine Sodium (Levothyroxine Sodium 100 Mcg/5 Ml Vial) 44 mcg IVPUSH DAILY COUNTS INCLUDE 234 BEDS AT THE [facility] Ondansetron HCl (Ondansetron Hcl 4 Mg/2 Ml Vial) 4 mg IVPUSH Q8H PRN PRN Reason: Nausea and Vomiting Sodium Chloride (0.9 % Sodium Chloride Flush 3 Ml Syringe) 3 ml IVFLUSH QSHIFT COUNTS INCLUDE 234 BEDS AT THE [facility] Topiramate (Topiramate 100 Mg Tablet) 200 mg PO BID COUNTS INCLUDE 234 BEDS AT THE [facility] Home Medications Medication Instructions Recorded Confirmed Last Taken Type clobazam 10 mg tablet 7.5 mg PO DAILY@1500 07/03/23 07/03/23 Unknown History clobazam 10 mg tablet 10 mg PO DAILY 07/03/23 07/03/23 Unknown History clobazam 10 mg tablet 15 mg PO BEDTIME 07/03/23 07/03/23 Unknown History clonidine HCl 0.1 mg tablet 0.1 mg PO BEDTIME 07/03/23 07/03/23 Unknown History divalproex 125 mg capsule,delayed 1,250 mg PO BID 07/03/23 07/03/23 Unknown History release sprinkle (Depakote Sprinkles) guanfacine 1 mg tablet 1 mg PO BID 07/03/23 07/03/23 Unknown History levothyroxine 88 mcg tablet 88 mcg PO DAILY@0630 07/03/23 07/03/23 Unknown History topiramate 100 mg tablet 200 mg PO BID 07/03/23 07/03/23 Unknown History Physical Exam Vital Signs: Vital Signs: Last Vital Signs Temp 100.2 F 07/03/23 08:15 Pulse 102 H 07/03/23 08:15 Resp 24 H 07/03/23 08:15 BP 102/49 L 07/03/23 08:15 Pulse Ox 96 07/03/23 08:15 O2 Del Method Room Air 07/03/23 08:15 BMI result Body Mass Index 24.6 Const: Other: pt awake and alert with mom not making sounds or vocalizing but rolling gently in bed eyes open Resp: Other: lungs clear Cardio: Other: little tachy GI: Other: abdomen round not distended soft. with deep palpation no rigidity or guarding, looking at patient and her vitals she does not seem to react to deep abdominal palpation even in the right lower quadrant. good bowel sounds Results Results Labs: Short CBC 07/03/23 Range/Units 04:03 WBC 13.6 H (4.8-10.8) X10*3/uL Hgb 12.0 (12.0-16.0) g/dl Hct 37.3 (37.0-47.0) % Plt Count 112 L (160-400) X10*3/uL BMP 07/03/23 04:03 Sodium 139 Potassium 4.1 Chloride 108 Carbon Dioxide 21 L BUN 13 Creatinine 0.63 Calcium 9.6 Liver Function 07/03/23 Range/Units 04:03 Total Bilirubin 0.3 (0.0-1.0) mg/dL Direct Bilirubin 0.1 (0.0-0.5) mg/dL AST 12 (5-31) U/L ALT < 5 (0-31) U/L Alkaline Phosphatase 70 (39-117) U/L Albumin 3.6 (3.5-5.0) g/dL Urine 07/03/23 Range/Units 07:11 Urine Color [place] A Urine Appearance Clear Urine pH 6.5 (5.0-9.0) Ur Specific [place] >= 1.030 H (1.005-1.025) Urine Protein 100 (2+) H (Neg-Trace) mg/dL Urine Glucose (UA) Negative (Negative) mg/dL Urine Test NEGATIVE (NEGATIVE) Abdomen CT scan report/results: report reviewed and image reviewed CT scan - pelvis: report reviewed and image reviewed Additional studies: [place] [id number] CT Scan Report Signed Patient: Tray Pitts MR#: [id number] : 2000 Acct:[id number] Age/Sex: 22 / F ADM Date: 07/03/23 Loc: HO.ED Attending Dr: Ordering Physician: Raj Chow MD Date of Service: 07/03/23 Procedure(s): CT abdomen pelvis wo IV con Accession Number(s): [id number] cc: Raj Chow MD; [facility]~ EXAMINATION: CT ABDOMEN AND PELVIS WITHOUT CONTRAST CLINICAL INFORMATION: Fever. Abdominal pain. COMPARISON: None available. TECHNIQUE: Multidetector volumetric imaging was performed from the superior aspect of the liver through the pubic symphysis. Sagittal and coronal reformatted images were obtained on the technologist's workstation. This CT examination was performed using dose optimization techniques as appropriate, variously including the following: *Automated exposure control *Adjustment of mA and/or kV according to patient size (this includes techniques or standardized protocols for targeted exams where dose is matched to indication/reason for exam; i.e. extremities or head) *Use of iterative reconstruction technique DLP: 506 mGy-cm FINDINGS: LUNG BASES: Mild atelectasis or scarring at the right lung base. LIVER, GALLBLADDER, AND BILIARY TREE: The liver is normal in size, shape, and attenuation. No focal hepatic lesion or biliary ductal dilatation is present. The gallbladder is unremarkable with no evidence of radiopaque gallstones, gallbladder wall thickening, or obvious pericholecystic inflammatory changes. PANCREAS: Unremarkable. SPLEEN: Unremarkable. ADRENAL GLANDS: Unremarkable. KIDNEYS AND URETERS: The kidneys are normal in size, shape, and attenuation. No hydronephrosis, hydroureter, or calculi seen. No perinephric stranding. BLADDER: Unremarkable. GASTROINTESTINAL TRACT: There is significant infiltrative change in the right lower quadrant with apparent thickening of the terminal small bowel and basal the cecum. The appendix is not confidently seen as a separate structure. There is retained stool throughout the colon. A rectal catheter is noted in place. ABDOMINAL WALL: No significant hernia is appreciated. LYMPH NODES: Normal. VASCULAR: Unremarkable. PELVIC VISCERA: The uterus and adnexal regions are within normal limits. There is a small amount of free fluid within the pelvis. OSSEOUS STRUCTURES: Unremarkable. CT/CT abdomen pelvis wo IV con IMPRESSION: Inflammatory change in the right lower quadrant with apparent thickening of the terminal small bowel and base of the cecum. Small amount of free fluid within the pelvis. Appendicitis favored over inflammatory bowel disease. Correlation is needed. Consider repeat examination with oral and IV contrast. Retained stool throughout. Rectal catheter in place. Fleischner guidelines were followed. Dictated By: Estuardo Emery Signed By: <Electronically signed by Estuardo Emery in OV> 07/03/2342 DD/ 4 TD/TT: Senior Applications Architect: Assessment and Plan (1) Abdominal pain: Status: Acute Plan 22 year old female with cerebral palsy and significant seizure history - abdominal pain, fever, elevated wbc, tender abdomen and ct scan showing inflammatory changes in rlq, ? appendicitis. Pt most likely with appendicitis but at this time no complications such as ruptue or abscess etc. Pt higher risk for surgery and at this time will try conservative care with npo and ivf and iv antibitoics and have med team do seizure meds and help with other medical issues. If pt clinically worsens consider repeat CT scan or exploration in the OR. Mom worried about surgery and agrees to conservative care with iv antibiotics for now. Will follow closely with exams and repeat labs etc. Quality Stroke Does the patient have a stroke diagnosis?: No VTE Prior VTE?: No VTE Risk Level:: Surgical - low VTE Device Contraindication: Treatment Not Indicated VTE Drug Contraindication: Treatment Not Indicated Procedures Date of Service Date of Service: 07/03/23
[2023-07-03] MEDS: Levothyroxine Sodium 100 MCG/5 ML VIAL 44 MCG IVPUSH (11:16)
[2023-07-03] MEDS: cloBAZam 10 MG TABLET PO (11:28)
[2023-07-03] MEDS: Topiramate 100 MG TABLET 200 MG PO ×2 (11:29→21:30)
--- NOTE | 2023-07-03 11:34 | PC.NURSE ---
per , OK to give PO meds while pt is NPO.
[2023-07-03] MEDS: VALPROIC ACID IV ×2 (11:55→21:31)
[2023-07-03] MEDS: DEXTROSE 5% IV ×2 (11:55→21:31)
--- NOTE | 2023-07-03 12:10 | P.CONHOSP_ITS ---
History of Present Illness Data of Consult Service Date: 07/03/23 Requesting physician: Gisella Villasenor Primary Care Provider: [facility] Reason for consult: seizures 22 year old female with cerebral palsy, Wenham Gastaut syndrome, autism disorder, hypothryroidism, who is nonverbal and non communicative at baseline admitted to general surgery for management of probable appendicitis with consult placed to hospitalist service for medical management. Window Glass Cutter Off is mother, Lucretia, who provides history at bedside. Mom reports patient has been lethargic, less response, shivering today. Pt has history of grand mal seizures related to Nelson Gastaut syndrome and follows with Dr Montejo at [facility] pediatric neurology. Last seizure was 09/03. Mom reports strict compliance with anti-epileptics and was concerned given delay in am med administration but per neurologist, slight delay in administration at 1130am was ok. Recommends diazepam IV perioperative if indicated. At baseline, pt cannot tolerate milk (not full lactose intolerance) and does tolerate chopped diet with regular liquids. No gtube. 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 Social History Advance Directives: No Advance Directives Information Provided: Yes Meds Allergies Allergy/AdvReac Type Severity Reaction Status Date / Time No Known Allergies Allergy Unverified 01/29/20 17:00 Active Medications: Current Medications Clobazam (Clobazam 10 Mg Tablet) 15 mg PO BEDTIME [facility] Clobazam (Clobazam 10 Mg Tablet) 7.5 mg PO DAILY@1500 JULIO CESAR Clobazam (Clobazam 10 Mg Tablet) 10 mg PO DAILY JULIO CESAR Last Admin: 07/03/23 11:28 Dose: 10 mg Sodium Chloride (Ns) 1,000 mls @ 100 mls/hr IVCONT .Q10H JULIO CESAR Last Admin: 07/03/23 10:16 Dose: 100 mls/hr Valproic Acid 1,250 mg/ (Dextrose) 62.5 mls @ 60 mls/hr IV BID JULIO CESAR Last Admin: 07/03/23 11:55 Dose: 60 mls/hr Piperacillin Sod/Tazobactam (Sod 3.375 gm/ Sodium Chloride) 50 mls @ 100 mls/hr IV Q6H [facility] Last Admin: 07/03/23 12:04 Dose: 100 mls/hr Levothyroxine Sodium (Levothyroxine Sodium 100 Mcg/5 Ml Vial) 44 mcg IVPUSH DAILY [facility] Last Admin: 07/03/23 11:16 Dose: 44 mcg Ondansetron HCl (Ondansetron Hcl 4 Mg/2 Ml Vial) 4 mg IVPUSH Q8H PRN PRN Reason: Nausea and Vomiting Sodium Chloride (0.9 % Sodium Chloride Flush 3 Ml Syringe) 3 ml IVFLUSH QSHIFT [facility] Topiramate (Topiramate 100 Mg Tablet) 200 mg PO BID [facility] Last Admin: 07/03/23 11:29 Dose: 200 mg Home Medications Medication Instructions Recorded Confirmed Last Taken Type clobazam 10 mg tablet 7.5 mg PO DAILY@1500 07/03/23 07/03/23 Unknown History clobazam 10 mg tablet 10 mg PO DAILY 07/03/23 07/03/23 Unknown History clobazam 10 mg tablet 15 mg PO BEDTIME 07/03/23 07/03/23 Unknown History clonidine HCl 0.1 mg tablet 0.1 mg PO BEDTIME 07/03/23 07/03/23 Unknown History divalproex 125 mg capsule,delayed 1,250 mg PO BID 07/03/23 07/03/23 Unknown History release sprinkle (Depakote Sprinkles) guanfacine 1 mg tablet 1 mg PO BID 07/03/23 07/03/23 Unknown History levothyroxine 88 mcg tablet 88 mcg PO DAILY@0630 07/03/23 07/03/23 Unknown History topiramate 100 mg tablet 200 mg PO BID 07/03/23 07/03/23 Unknown History Physical Exam 2 Vital Signs and Narrative: Vital Signs: Last Vital Signs Temp 99.7 F 07/03/23 11:32 Pulse 98 07/03/23 11:32 Resp 18 07/03/23 11:32 BP 98/37 L 07/03/23 11:32 Pulse Ox 97 07/03/23 11:32 O2 Del Method Room Air 07/03/23 11:32 BMI result Body Mass Index 24.6 Constitutional - Awake and Alert, No apparent distress Eyes - PERRLA, EOMI Cardiovascular - S1S2, RRR, No edema Respiratory - Normal lung expansion, Normal respiratory effort, No respiratory distress, CTA bilaterally Extremities - no calf tenderness bilaterally, no swelling Skin - Warm/Dry Neurological - somnolent but arousable, nonverbal Results Labs 07/03/23 04:03 07/03/23 04:03 Labs: Laboratory Results - last 24 hr 07/03/23 07/03/23 04:03 07:11 MCV 98.7 H MCH 31.7 MCHC 32.2 RDW 12.3 Plt Count 112 L MPV 11.1 Immature Gran % (Auto) 0.4 Neut % (Auto) 68.1 Lymph % (Auto) 12.2 L [place] % (Auto) 19.2 H Eos % (Auto) 0.0 Baso % (Auto) 0.1 Lymph # (Auto) 1.7 [place] # (Auto) 2.6 H Eos # (Auto) 0.0 Baso # (Auto) 0.0 Abs Immat Gran (auto) 0.06 H Absolute Neuts (auto) 9.3 H Absolute Nucleated RBC 0.000 Nucleated RBC % (auto) 0.0 Smear Tech's Comments VERIFIED Anion Gap 14 Estim Creat Clear Calc TNP Estimated GFR > 60 Random Glucose 140 H Lactic Acid 1.0 Calcium 9.6 Total Bilirubin 0.3 Direct Bilirubin 0.1 AST 12 ALT < 5 Alkaline Phosphatase 70 Troponin I High Sens < 2.7 B-Natriuretic Peptide < 10 Total Protein 7.5 Albumin 3.6 Lipase 38 Urine Color [place] A Urine Appearance Clear Urine pH 6.5 Ur Specific [place] >= 1.030 H Urine Protein 100 (2+) H Urine Glucose (UA) Negative Urine Ketones 15 Urine Blood Large (3+) H Urine Nitrite Negative Ur Leukocyte Esterase Small (1+) H Urine RBC >20 H Urine WBC 0-5 Ur Squamous Epith Cells 0-2 Urine Bacteria None Seen Hyaline Casts 0-2 Urine Test NEGATIVE Influenza Type A (PCR) NEGATIVE Influenza Type B (PCR) NEGATIVE RSV RNA Qual (PCR) NEGATIVE SARS-CoV-2 RNA (RT-PCR) NEGATIVE Imaging Radiologist's Impressions: Impressions Chest X-Ray 07/03/23 05:10 IMPRESSION: Low lung volumes. No evidence for active cardiopulmonary disease. Abdomen/Pelvis CT 07/03/23 05:25 IMPRESSION: Inflammatory change in the right lower quadrant with apparent thickening of the terminal small bowel and base of the cecum. Small amount of free fluid within the pelvis. Appendicitis favored over inflammatory bowel disease. Correlation is needed. Consider repeat examination with oral and IV contrast. Retained stool throughout. Rectal catheter in place. Fleischner guidelines were followed. Assessment and Plan (1) Abdominal pain: Status: Acute (2) Fever: Status: Acute Plan 22 year old female with cerebral palsy, Wenham Gastaut syndrome, autism disorder, hypothryroidism, who is nonverbal and non communicative at baseline admitted to general surgery for management of probable appendicitis with consult placed to hospitalist service for medical management. Window Glass Cutter Off is mother, Lucretia, who provides history at bedside. #Abdominal pain -probable appendicitis based on clinical picture, not seen on dry CT -febrile, tachycardic tachypenic, leukocytosis on arrival. No severe sepsis -Conservative management per general surgery at this time with IV abx, IVF -NPO for now. Baseline diet is NDDM2, regular thin liquids #Nelson Gastaut syndrome -well controlled with history of grand mal seizures -continue depakote, clobazam, topamax -Per Dr. Montejo at [facility] Pediatric Neuro, periopertive management with IV diazepam if needed. [facility] [place] #Hypothyroidism -synthroid Thank you for this consult, will continue following along with you.
--- NOTE | 2023-07-03 13:56 | PC.NURSE ---
pt does not have butcher. per previous nurse, accounts receivable supervisor attempted multiple times to straight cath patient but was unsuccessful. Pt has pure-wick and is urinating. 200ml in drainage container
--- NOTE | 2023-07-03 16:30 | MHC.EDTECH ---
This pct assumed care of patient at 1500 ,vitals taken ,Patient was change and reposition .
[2023-07-03] MEDS: cloBAZam 10 MG TABLET 7.5 MG PO (16:35)
[2023-07-03] MEDS: Acetaminophen 1,000 MG/100 ML PIGGYBACK 400 MG IV (17:15)
[2023-07-03] MEDS: cloBAZam 10 MG TABLET 15 MG PO (21:31)
[2023-07-04] VITALS: TEMP 36.8
[2023-07-04 01:59] VITALS: BP 106/59; PULSE 109; RESP 16; TEMP 37.6; O2SAT 96
[2023-07-04] MEDS: Piperacillin Sodium/Tazobactam 3.375 GM in 0.9 % Sodium Chloride 50 ML IV ×4 (04:50→22:32)
[2023-07-04] MEDS: Acetaminophen 1,000 MG/100 ML PIGGYBACK 400 MG IV ×3 (05:54→14:16)
[2023-07-04 06:05] VITALS: BP 118/61; PULSE 102; TEMP 37
[2023-07-04 06:35] LABS: Basophils Percent Auto 0.1 % (0-2); Hematocrit 33.9 % (37.0-47.0); Hemoglobin 10.7 g/dl (12.0-16.0); Imm Gran Abs Auto 0.15 X10*3/uL (0.00-0.03); Imm Gran Pct Auto 1.6 % (0.0-0.4); Lymphocytes Absolute Auto 1.2 X10*3/uL (1.2-4.9); Lymphocytes Percent Auto 12.6 % (20-40); MANUAL DIFF FLAG SCAN; Mean Corpuscular HGB Conc 31.6 g/dl (31.0-35.0); Mean Corpuscular Hemoglobin 31.7 pg (27.0-33.0); Mean Corpuscular Volume 100.3 fL (80.0-98.0); Mean Platelet Volume 11.1 fL (9.4-12.3); Monocytes Absolute Auto 1.8 X10*3/uL (0.1-1.2); Monocytes Percent Auto 19.4 % (2-11); Neutrophils Absolute Auto 6.2 x10*3/uL (2.0-8.3); Neutrophils Percent Auto 66.3 % (45-73); Red Blood Count 3.38 X10*6/uL (4.20-5.50); Red Cell Distribution Width 12.3 % (11.0-16.0); SCAN SMEAR FLAG 1; White Blood Count 9.4 X10*3/uL (4.8-10.8)
[2023-07-04 06:36] LABS: Platelet Count 75 X10*3/uL (160-400)
[2023-07-04 07:21] VITALS: BP 109/59; PULSE 104; RESP 16; TEMP 37; O2SAT 93
[2023-07-04 08:02] LABS: SLIDE REVIEW VERIFIED
[2023-07-04] MEDS: 0.9 % Sodium Chloride 1,000 ML 100 ML IVCONT ×2 (08:20→16:12)
--- NOTE | 2023-07-04 08:27 | P.PNGS_ITS ---
Subjective Subjective Date of Service: 07/04/23 Interval history: pt not communicative as per mother, seems to be more comfortable had fevers during the day yesterday, no fever overnight Physical Exam 2 Vital Signs: Vital Signs: Last Vital Signs Temp 98.6 F 07/04/23 07:21 Pulse 104 H 07/04/23 07:21 Resp 16 07/04/23 07:21 BP 109/59 L 07/04/23 07:21 Pulse Ox 93 07/04/23 07:21 O2 Del Method Room Air 07/04/23 07:21 BMI result Body Mass Index 24.6 Const: Other: not communicative General: comfortable and awake Resp: Effort & Inspection: normal respiratory effort Cardio: Rate: regular rate GI: Inspection: Yes distended Palpation (GI): Soft to palpation, not firm, nontender and no guarding Objective Data Active Medications Clobazam (Clobazam 10 Mg Tablet) 15 mg PO BEDTIME [facility] Last Admin: 07/03/23 21:31 Dose: 15 mg Documented By: LINDA Clobazam (Clobazam 10 Mg Tablet) 7.5 mg PO DAILY@1500 [facility] Last Admin: 07/03/23 16:35 Dose: 7.5 mg Documented By: ANAI Clobazam (Clobazam 10 Mg Tablet) 10 mg PO DAILY [facility] Last Admin: 07/03/23 11:28 Dose: 10 mg Documented By: ANAI Sodium Chloride (Ns) 1,000 mls @ 100 mls/hr IVCONT .Q10H [facility] Last Admin: 07/04/23 08:20 Dose: 100 mls/hr Documented By: NII Valproic Acid 1,250 mg/ (Dextrose) 62.5 mls @ 60 mls/hr IV BID [facility] Last Infusion: 07/03/23 22:53 Dose: Infused Documented By: LINDA Piperacillin Sod/Tazobactam (Sod 3.375 gm/ Sodium Chloride) 50 mls @ 100 mls/hr IV Q6H [facility] Last Infusion: 07/04/23 05:26 Dose: Infused Documented By: LINDA Acetaminophen (Ofirmev) 1,000 mg in 100 mls @ 400 mls/hr IV Q6H PRN PRN Reason: fev Stop: 07/04/23 11:29 Last Infusion: 07/04/23 06:16 Dose: Infused Documented By: LINDA Levothyroxine Sodium (Levothyroxine Sodium 100 Mcg/5 Ml Vial) 44 mcg IVPUSH DAILY [facility] Last Admin: 07/03/23 11:16 Dose: 44 mcg Documented By: ANAI Ondansetron HCl (Ondansetron Hcl 4 Mg/2 Ml Vial) 4 mg IVPUSH Q8H PRN PRN Reason: Nausea and Vomiting Sodium Chloride (0.9 % Sodium Chloride Flush 3 Ml Syringe) 3 ml IVFLUSH QSHIFT [facility] Last Admin: 07/04/23 08:23 Dose: Not Given Documented By: NII Non-Admin Reason: IV Running Topiramate (Topiramate 100 Mg Tablet) 200 mg PO BID [facility] Last Admin: 07/03/23 21:30 Dose: 200 mg Documented By: LINDA Labs 07/04/23 05:54 07/03/23 04:03 Labs: Laboratory Results - last 24 hr 07/04/23 05:54 MCV 100.3 H MCH 31.7 MCHC 31.6 RDW 12.3 Plt Count 75 L D MPV 11.1 Immature Gran % (Auto) 1.6 H Neut % (Auto) 66.3 Lymph % (Auto) 12.6 L [place] % (Auto) 19.4 H Eos % (Auto) 0.0 Baso % (Auto) 0.1 Lymph # (Auto) 1.2 [place] # (Auto) 1.8 H Eos # (Auto) 0.0 Baso # (Auto) 0.0 Abs Immat Gran (auto) 0.15 H Absolute Neuts (auto) 6.2 Absolute Nucleated RBC 0.000 Nucleated RBC % (auto) 0.0 Smear Tech's Comments VERIFIED Microbiology Microbiology Results: Microbiology 07/03/23 04:08 Blood Culture - Preliminary Blood - Venous No growth after 24 hours. 07/03/23 04:03 Blood Culture - Preliminary Blood - Venous No growth after 24 hours. Procedures Date of Service Date of Service: 07/04/23 Progress Note: A&P Assessment and plan (1) Abdominal pain: Status: Acute Assessment and Plan: inflammatory changes around the appendix and cecum abd soft and benign WBC now normal CT reviewed - uncertain of this is appendicitis no appendicolith parameters show improvement continue with IV abx ok to have clear liquids explained plan to mother - she understands and is comfortable Time Spent With Patient Time: Total time managing care of this patient today ____ minutes. Quality Stroke Does the patient have a stroke diagnosis?: No VTE Prior VTE?: No VTE Risk Level:: Surgical - low VTE Device Contraindication: Treatment Not Indicated VTE Drug Contraindication: Treatment Not Indicated
[2023-07-04] MEDS: Topiramate 100 MG TABLET 200 MG PO ×2 (09:10→21:02)
[2023-07-04] MEDS: cloBAZam 10 MG TABLET PO (09:11)
[2023-07-04] MEDS: DEXTROSE 5% IV ×2 (09:11→21:01)
[2023-07-04] MEDS: VALPROIC ACID IV ×2 (09:11→21:01)
[2023-07-04] MEDS: Levothyroxine Sodium 100 MCG/5 ML VIAL 44 MCG IVPUSH (09:11)
--- NOTE | 2023-07-04 10:47 | HO.PM.IMPN ---
Subjective Subjective Date of Service: 07/04/23 Interval History: Being followed for seizure disorder, no seizure-like activity noted, patient nonverbal history obtained from patient's mother, mother feels patient is still not at her baseline not comfortable looking, no nausea vomiting noted had 2 loose stools, no recurrent fevers overnight. Review of Systems Unable to obtain since patient non communicative. Physical Exam Vital Signs: Vital Signs: Last Vital Signs Temp 98.6 F 07/04/23 07:21 Pulse 104 H 07/04/23 07:21 Resp 16 07/04/23 07:21 BP 109/59 L 07/04/23 07:21 Pulse Ox 93 07/04/23 07:21 O2 Del Method Room Air 07/04/23 07:21 BMI result Body Mass Index 24.6 Const: Other: General resting comfortably CVS regular rate rhythm Lungs normal respiratory effort, clear to auscultation Abdomen soft to palpation, no grimacing with palpation, bowel sounds audible Extremities no edema Neuro nonverbal, moving all 4 extremities. Objective Data Active Medications Clobazam (Clobazam 10 Mg Tablet) 15 mg PO BEDTIME [facility] Last Admin: 07/03/23 21:31 Dose: 15 mg Documented By: LINDA Clobazam (Clobazam 10 Mg Tablet) 7.5 mg PO DAILY@1500 [facility] Last Admin: 07/03/23 16:35 Dose: 7.5 mg Documented By: ANAI Clobazam (Clobazam 10 Mg Tablet) 10 mg PO DAILY [facility] Last Admin: 07/04/23 09:11 Dose: 10 mg Documented By: NII Guanfacine HCl (Guanfacine Hcl Er 1 Mg Tab.Er.24h) 1 mg PO BEDTIME [facility] Sodium Chloride (Ns) 1,000 mls @ 100 mls/hr IVCONT .Q10H [facility] Last Admin: 07/04/23 08:20 Dose: 100 mls/hr Documented By: NII Valproic Acid 1,250 mg/ (Dextrose) 62.5 mls @ 60 mls/hr IV BID [facility] Last Infusion: 07/04/23 10:26 Dose: Infused Documented By: NII Piperacillin Sod/Tazobactam (Sod 3.375 gm/ Sodium Chloride) 50 mls @ 100 mls/hr IV Q6H [facility] Last Infusion: 07/04/23 05:26 Dose: Infused Documented By: LINDA Acetaminophen (Ofirmev) 1,000 mg in 100 mls @ 400 mls/hr IV Q6H PRN PRN Reason: fev Stop: 07/04/23 11:29 Last Infusion: 07/04/23 06:16 Dose: Infused Documented By: LINDA Levothyroxine Sodium (Levothyroxine Sodium 100 Mcg/5 Ml Vial) 44 mcg IVPUSH DAILY [facility] Last Admin: 07/04/23 09:11 Dose: 44 mcg Documented By: NII Ondansetron HCl (Ondansetron Hcl 4 Mg/2 Ml Vial) 4 mg IVPUSH Q8H PRN PRN Reason: Nausea and Vomiting Sodium Chloride (0.9 % Sodium Chloride Flush 3 Ml Syringe) 3 ml IVFLUSH QSHIFT [facility] Last Admin: 07/04/23 08:23 Dose: Not Given Documented By: NII Non-Admin Reason: IV Running Topiramate (Topiramate 100 Mg Tablet) 200 mg PO BID [facility] Last Admin: 07/04/23 09:10 Dose: 200 mg Documented By: NII Labs 07/04/23 05:54 07/03/23 04:03 Labs: Laboratory Results - last 24 hr 07/04/23 05:54 MCV 100.3 H MCH 31.7 MCHC 31.6 RDW 12.3 Plt Count 75 L D MPV 11.1 Immature Gran % (Auto) 1.6 H Neut % (Auto) 66.3 Lymph % (Auto) 12.6 L [place] % (Auto) 19.4 H Eos % (Auto) 0.0 Baso % (Auto) 0.1 Lymph # (Auto) 1.2 [place] # (Auto) 1.8 H Eos # (Auto) 0.0 Baso # (Auto) 0.0 Abs Immat Gran (auto) 0.15 H Absolute Neuts (auto) 6.2 Absolute Nucleated RBC 0.000 Nucleated RBC % (auto) 0.0 Smear Tech's Comments VERIFIED Microbiology Microbiology Results: Microbiology 07/03/23 04:08 Blood Culture - Preliminary Blood - Venous No growth after 24 hours. 07/03/23 04:03 Blood Culture - Preliminary Blood - Venous No growth after 24 hours. Assessment and Plan (1) Abdominal pain: Status: Acute (2) Fever: Status: Acute Plan 22 year old female with cerebral palsy, Nelson Gastaut syndrome, autism disorder, hypothryroidism, who is nonverbal and non communicative at baseline admitted to general surgery for management of probable appendicitis with consult placed to hospitalist service for medical management. Rover Tender is mother, Lucretia, who provides history at bedside. #Abdominal pain /inflammatory changes around the appendix and cecum, question appendicitis -febrile, tachycardic tachypenic, leukocytosis on arrival. No severe sepsis No recurrent fever, WBC normalized. -Conservative management per general surgery at this time with IV Zosyn started on 07/03, and IVF -NPO for now. 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 -continue IV depakote, by mouth clobazam, topamax -Per Dr. Montejo at [facility], periopertive management with IV diazepam if needed. [facility] [place] #Hypothyroidism -continue IV synthroid # will resume guanfacine centrally acting alpha 2 adrenergic receptor stimulant patient use for tics disorder, Can not be stopped abruptly. Disposition as per General surgery Quality Stroke Does the patient have a stroke diagnosis?: No VTE Prior VTE?: No VTE Risk Level:: Surgical - low VTE Device Contraindication: Treatment Not Indicated VTE Drug Contraindication: Treatment Not Indicated
--- NOTE | 2023-07-04 11:46 | MHC.CM.PN ---
CM MET WITH MOTHER OF PT AT BEDSIDE. PT IS NON-VERBAL AND NOT ABLE TO PARTICIPATE. PER MOTHER, PT IS W/C BOUND AND DEPENDENT WITH CARE. PT MOTHER IS CAREGIVER AND HAS 30 HRS/WEEK TRAM OPERATOR VIA [employer] AND FINANCIAL ASSIST THROUGH [employer]. PCP DR. LOCKE AT [facility] DP: HOME WITH MOTHER AND RESUME TRAM OPERATOR SERVICES. PT'S MOTHER HAS A RIDE HOME FOR SHE AND PT. CM WILL CONTINUE TO FOLLOW FOR ANY CHANGE IN DC NEEDS/PLAN.
[2023-07-04] MEDS: cloBAZam 10 MG TABLET 7.5 MG PO (14:15)
[2023-07-04 14:46] LABS: Anion Gap 12 (12-20); Blood Urea Nitrogen 11 mg/dL (9-16); Carbon Dioxide 17 mmol/L (22-29); Chloride 116 mmol/L (96-108); Creatinine Clr Calc Pharmacy 136.1; Estimated Glomerular Filt Rate > 60; Glucose Random 79 mg/dL (60-115); Potassium 3.9 mmol/L (3.3-5.1); Sodium 141 mmol/L (135-145)
[2023-07-04 15:43] VITALS: BP 113/54; PULSE 96; RESP 18; TEMP 36.1; O2SAT 94
--- NOTE | 2023-07-04 15:44 | PM.EVENT ---
Event Note Date of Service: 07/05/23 Event Note: Seen on afternoon rounds and multiple times today as well According to the mom, main issue now is diarrhea She has had multiple soft stools She seems to be comfortable however and does not seem to be in pain She has had no fever Abdomen remains benign with no obvious significant tenderness We will continue with current management She is tolerating clear liquids We will check her labs tomorrow to make sure that she has not dehydrated We will check for stool C diff as well Her mother is comfortable with the plan Time Spent With Patient Time: Total time managing care of this patient today ____ minutes.
[2023-07-04 16:02] LABS: CDiff Gene PCR NEGATIVE (Negative)
[2023-07-04 20:00] VITALS: BP 107/57; PULSE 94; RESP 18; TEMP 36.2; O2SAT 91
[2023-07-04] MEDS: cloBAZam 10 MG TABLET 15 MG PO (21:02)
[2023-07-04] MEDS: Acetaminophen 325 MG TABLET 975 MG PO (21:40)
[2023-07-05 02:58] VITALS: BP 95/50; PULSE 81; RESP 20; TEMP 36.6; O2SAT 94
[2023-07-05] MEDS: 0.9 % Sodium Chloride 1,000 ML 100 ML IVCONT (03:15)
[2023-07-05] MEDS: Acetaminophen 325 MG TABLET 975 MG PO ×2 (03:25→12:20)
[2023-07-05] MEDS: Piperacillin Sodium/Tazobactam 3.375 GM in 0.9 % Sodium Chloride 50 ML IV ×4 (05:13→23:39)
[2023-07-05 05:29] LABS: Mean Corpuscular Volume 99.4 fL (80.0-98.0); PLT CLUMP 1
[2023-07-05 05:31] LABS: Hemoglobin 9.8 g/dl (12.0-16.0); Mean Corpuscular HGB Conc 31.6 g/dl (31.0-35.0); Mean Corpuscular Hemoglobin 31.4 pg (27.0-33.0); Platelet Count 70 X10*3/uL (160-400); Red Blood Count 3.12 X10*6/uL (4.20-5.50); White Blood Count 6.1 X10*3/uL (4.8-10.8)
[2023-07-05 05:44] LABS: Anion Gap 10 (12-20); Blood Urea Nitrogen 14 mg/dL (9-16); Calcium 8.5 mg/dL (8.4-10.2); Carbon Dioxide 21 mmol/L (22-29); Chloride 115 mmol/L (96-108); Creatinine Clr Calc Pharmacy 148.8; Estimated Glomerular Filt Rate > 60; Glucose Random 75 mg/dL (60-115); Potassium 3.3 mmol/L (3.3-5.1); Sodium 143 mmol/L (135-145)
[2023-07-05 07:44] VITALS: BP 109/52; PULSE 78; RESP 18; TEMP 36.2; O2SAT 96
--- NOTE | 2023-07-05 07:59 | P.PNGS_ITS ---
Subjective Subjective Date of Service: 07/05/23 Interval history: mom is primary source of information no events overnight accdg to mom - seems to have some cough diarrhea apparently has resolved after 6 pm last night seems to have been more comfortable although mom says she thinks she may still have some residual pain tolerating clear liquids well Physical Exam 2 Vital Signs: Vital Signs: Last Vital Signs Temp 97.1 F 07/05/23 07:44 Pulse 78 07/05/23 07:44 Resp 18 07/05/23 07:44 BP 109/52 L 07/05/23 07:44 Pulse Ox 96 07/05/23 07:44 O2 Del Method Room Air 07/05/23 07:44 O2 Flow Rate 1 07/05/23 02:58 BMI result Body Mass Index 24.6 Const: Other: noncommunicative General: comfortable and no acute distress Resp: Effort & Inspection: normal respiratory effort Cardio: Rate: regular rate GI: Other: no obvious tenderness to palpation at this time Palpation (GI): Soft to palpation, not firm, no guarding and not rigid Objective Data Active Medications Acetaminophen (Acetaminophen 325 Mg Tablet) 975 mg PO Q6H PRN PRN Reason: Pain, Mild (Pain Scale 1-3) Last Admin: 07/05/23 03:25 Dose: 975 mg Documented By: KYLEIGH Clobazam (Clobazam 10 Mg Tablet) 15 mg PO BEDTIME [facility] Last Admin: 07/04/23 21:02 Dose: 15 mg Documented By: KYLEIGH Clobazam (Clobazam 10 Mg Tablet) 10 mg PO DAILY [facility] Last Admin: 07/04/23 09:11 Dose: 10 mg Documented By: NII Clobazam (Clobazam 10 Mg Tablet) 5 mg PO DAILY@1500 JULIO CESAR Sodium Chloride (Ns) 1,000 mls @ 100 mls/hr IVCONT .Q10H [facility] Last Admin: 07/05/23 03:15 Dose: 100 mls/hr Documented By: KYLEIGH Valproic Acid 1,250 mg/ (Dextrose) 62.5 mls @ 60 mls/hr IV BID [facility] Last Infusion: 07/04/23 22:35 Dose: Infused Documented By: KYLEIGH Piperacillin Sod/Tazobactam (Sod 3.375 gm/ Sodium Chloride) 50 mls @ 100 mls/hr IV Q6H [facility] Last Infusion: 07/05/23 05:52 Dose: Infused Documented By: KYLEIGH Levothyroxine Sodium (Levothyroxine Sodium 100 Mcg/5 Ml Vial) 44 mcg IVPUSH DAILY [facility] Last Admin: 07/04/23 09:11 Dose: 44 mcg Documented By: NII Patient Own Medication Guanfacine 1 Mg 1 each PO BID [facility] Last Admin: 07/04/23 21:02 Dose: 1 each Documented By: KYLEIGH Ondansetron HCl (Ondansetron Hcl 4 Mg/2 Ml Vial) 4 mg IVPUSH Q8H PRN PRN Reason: Nausea and Vomiting Sodium Chloride (0.9 % Sodium Chloride Flush 3 Ml Syringe) 3 ml IVFLUSH QSHIFT [facility] Last Admin: 07/04/23 21:04 Dose: Not Given Documented By: KYLEIGH Non-Admin Reason: IV Running Topiramate (Topiramate 100 Mg Tablet) 200 mg PO BID [facility] Last Admin: 07/04/23 21:02 Dose: 200 mg Documented By: KYLEIGH Labs 07/05/23 05:06 07/05/23 05:06 Labs: Laboratory Results - last 24 hr 07/04/23 07/04/23 07/04/23 05:54 14:21 14:46 MCV 100.3 H MCH 31.7 MCHC 31.6 RDW 12.3 Plt Count 75 L D MPV 11.1 Immature Gran % (Auto) 1.6 H Neut % (Auto) 66.3 Lymph % (Auto) 12.6 L [place] % (Auto) 19.4 H Eos % (Auto) 0.0 Baso % (Auto) 0.1 Lymph # (Auto) 1.2 [place] # (Auto) 1.8 H Eos # (Auto) 0.0 Baso # (Auto) 0.0 Abs Immat Gran (auto) 0.15 H Absolute Neuts (auto) 6.2 Absolute Nucleated RBC 0.000 Nucleated RBC % (auto) 0.0 Smear Tech's Comments VERIFIED Anion Gap 12 Estim Creat Clear Calc 136.1 Estimated GFR > 60 Random Glucose 79 Calcium 9.0 D C. difficile Tox B Gene NEGATIVE 07/05/23 05:06 MCV 99.4 H MCH 31.4 MCHC 31.6 RDW 12.0 Plt Count 70 L MPV 11.0 Immature Gran % (Auto) Neut % (Auto) Lymph % (Auto) [place] % (Auto) Eos % (Auto) Baso % (Auto) Lymph # (Auto) [place] # (Auto) Eos # (Auto) Baso # (Auto) Abs Immat Gran (auto) Absolute Neuts (auto) Absolute Nucleated RBC 0.000 Nucleated RBC % (auto) 0.0 Smear Tech's Comments Anion Gap 10 L Estim Creat Clear Calc 148.8 Estimated GFR > 60 Random Glucose 75 Calcium 8.5 C. difficile Tox B Gene Microbiology Microbiology Results: Microbiology 07/03/23 04:08 Blood Culture - Preliminary Blood - Venous No growth after 48 hours. 07/03/23 04:03 Blood Culture - Preliminary Blood - Venous No growth after 48 hours. 07/03/23 Unknown Urine Culture - Final Urine clean catch - Urine murcia top Procedures Date of Service Date of Service: 07/05/23 Progress Note: A&P Assessment and plan (1) Abdominal pain: Status: Acute Assessment and Plan: seems to be much improved WBC down C diff neg had diarrhea - ?ileitis exam very benign supplement K ok to start regular diet explained plan to mom - she is comfortable with this Time Spent With Patient Time: Total time managing care of this patient today ____ minutes. Quality Stroke Does the patient have a stroke diagnosis?: No VTE Prior VTE?: No VTE Risk Level:: Surgical - low VTE Device Contraindication: Treatment Not Indicated VTE Drug Contraindication: Treatment Not Indicated
[2023-07-05] MEDS: Levothyroxine Sodium 100 MCG/5 ML VIAL 44 MCG IVPUSH (08:29)
[2023-07-05] MEDS: Potassium Chloride Packet 20 MEQ PACKET 40 MEQ PO (08:30)
[2023-07-05] MEDS: cloBAZam 10 MG TABLET PO (08:30)
[2023-07-05] MEDS: Topiramate 100 MG TABLET 200 MG PO ×2 (08:30→21:31)
[2023-07-05] MEDS: DEXTROSE 5% IV ×2 (08:35→21:32)
[2023-07-05] MEDS: VALPROIC ACID IV ×2 (08:35→21:32)
--- NOTE | 2023-07-05 15:19 | HO.PM.IMPN ---
Subjective Subjective Date of Service: 07/05/23 Interval History: seen and examined this morning follow up for medical consultation, being treated conservatively for appendacitis patient is nonverbal, history obtained from mother at the bedside. unable to obtain ROS No significant overnight events, patient mother feels that patient appears more comfortable although she is concerned that she may have a cough Physical Exam Vital Signs: Vital Signs: Last Vital Signs Temp 97.1 F 07/05/23 07:44 Pulse 78 07/05/23 07:44 Resp 18 07/05/23 07:44 BP 109/52 L 07/05/23 07:44 Pulse Ox 96 07/05/23 07:44 O2 Del Method Room Air 07/05/23 07:44 O2 Flow Rate 1 07/05/23 02:58 BMI result Body Mass Index 24.6 Const: Other: lying in bed, appears comfortable sleepy but opens eyes and looks around nonverbal, unable to assess orientation Nutritional Appearance: average body habitus Resp: Other: no cough during examination Effort & Inspection: normal respiratory effort, no respiratory distress and no use of accessory muscles Auscultation: clear to auscultation bilaterally Cardio: Rate: regular rate GI: Inspection: No distended Palpation (GI): Soft to palpation Neuro: Other: nonverbal Objective Data Active Medications Acetaminophen (Acetaminophen 325 Mg Tablet) 975 mg PO Q6H PRN PRN Reason: Pain, Mild (Pain Scale 1-3) Last Admin: 07/05/23 12:20 Dose: 975 mg Documented By: YARED Clobazam (Clobazam 10 Mg Tablet) 15 mg PO BEDTIME [facility] Last Admin: 07/04/23 21:02 Dose: 15 mg Documented By: KYLEIGH Clobazam (Clobazam 10 Mg Tablet) 10 mg PO DAILY [facility] Last Admin: 07/05/23 08:30 Dose: 10 mg Documented By: YARED Clobazam (Clobazam 10 Mg Tablet) 5 mg PO DAILY@1500 JULIO CESAR Valproic Acid 1,250 mg/ (Dextrose) 62.5 mls @ 60 mls/hr IV BID [facility] Last Infusion: 07/05/23 09:39 Dose: Infused Documented By: YARED Piperacillin Sod/Tazobactam (Sod 3.375 gm/ Sodium Chloride) 50 mls @ 100 mls/hr IV Q6H [facility] Last Infusion: 07/05/23 12:52 Dose: Infused Documented By: YARED Levothyroxine Sodium (Levothyroxine Sodium 100 Mcg/5 Ml Vial) 44 mcg IVPUSH DAILY [facility] Last Admin: 07/05/23 08:29 Dose: 44 mcg Documented By: YARED Patient Own Medication Guanfacine 1 Mg 1 each PO BID [facility] Last Admin: 07/05/23 08:29 Dose: 1 each Documented By: YARED Ondansetron HCl (Ondansetron Hcl 4 Mg/2 Ml Vial) 4 mg IVPUSH Q8H PRN PRN Reason: Nausea and Vomiting Sodium Chloride (0.9 % Sodium Chloride Flush 3 Ml Syringe) 3 ml IVFLUSH QSHIFT [facility] Last Admin: 07/05/23 08:12 Dose: Not Given Documented By: YARED Non-Admin Reason: IV Running Topiramate (Topiramate 100 Mg Tablet) 200 mg PO BID [facility] Last Admin: 07/05/23 08:30 Dose: 200 mg Documented By: YARED Labs 07/05/23 05:06 07/05/23 05:06 Labs: Laboratory Results - last 24 hr 07/04/23 07/05/23 14:46 05:06 MCV 99.4 H MCH 31.4 MCHC 31.6 RDW 12.0 Plt Count 70 L MPV 11.0 Absolute Nucleated RBC 0.000 Nucleated RBC % (auto) 0.0 Anion Gap 10 L Estim Creat Clear Calc 148.8 Estimated GFR > 60 Random Glucose 75 Calcium 8.5 C. difficile Tox B Gene NEGATIVE Microbiology Microbiology Results: Microbiology 07/03/23 04:08 Blood Culture - Preliminary Blood - Venous No growth after 48 hours. 07/03/23 04:03 Blood Culture - Preliminary Blood - Venous No growth after 48 hours. 07/03/23 Unknown Urine Culture - Final Urine clean catch - Urine murcia top Assessment and Plan (1) Fever: Status: Acute Plan 22 year old female with cerebral palsy, [place] Gastaut syndrome, autism disorder, hypothryroidism, who is nonverbal and non communicative at baseline admitted to general surgery for management of probable appendicitis with consult placed to hospitalist service for medical management. General Manager Land Department is mother, Lucretia, who provides history at bedside. Abdominal pain /inflammatory changes around the appendix and cecum, question appendicitis -febrile, tachycardic tachypenic, leukocytosis on arrival. No severe sepsis No recurrent fever, WBC normalized. -Conservative management per general surgery at this time with IV Zosyn started on 07/03 Baseline diet is NDD2, regular thin liquids ?cough check cxr lungs clear on exam no hypoxia documented Lethargy family concerned for lethargy, similar to on admission repeat rectal temp 100.7 wbc count resolved, urine culture and blood cultures negative LFTs normal on admission on baseline medications cxr ordered will check ammonia, and VBG - if negative will consider brain CT hyperchloremic metabolic acidosis likely due to fluids NS discontinued [place] Gastaut syndrome well controlled with history of grand mal seizures. continue IV depakote, by mouth clobazam, topamax Per Dr. Montejo at [facility], periopertive management with IV diazepam if needed. [facility] records reviewed thrombocytopenia chronic. follow CBC Hypothyroidism continue IV synthroid will resume guanfacine centrally acting alpha 2 adrenergic receptor stimulant patient use for tics disorder, Can not be stopped abruptly. Disposition as per General surgery Quality Stroke Does the patient have a stroke diagnosis?: No VTE Prior VTE?: No VTE Risk Level:: Surgical - low VTE Device Contraindication: Treatment Not Indicated VTE Drug Contraindication: Treatment Not Indicated
[2023-07-05] MEDS: cloBAZam 10 MG TABLET 5 MG PO (15:20)
[2023-07-05 15:40] VITALS: TEMP 38.2
[2023-07-05] MEDS: Acetaminophen Supp 650 MG SUPP.RECT PR ×2 (15:53→22:03)
--- NOTE | 2023-07-05 16:07 | PM.EVENT ---
Event Note Date of Service: 07/06/23 Event Note: Patient seen multiple times a day Abdominal exam benign No obvious significant tenderness However, mother is concerned that she is not as alert as usual She states that the patient has had this cough No fevers No vomiting Discussed with hospitalist service who ordered for chest x-ray Time Spent With Patient Time: Total time managing care of this patient today ____ minutes.
[2023-07-05 16:17] LABS: VBG Base Excess -5.1 mmol/L; VBG HCO3 21 mmol/L (22-26); VBG pCO2 45 mmHg; VBG pH 7.27 (7.32-7.43); VBG pO2 37 mmHg
[2023-07-05 16:19] LABS: Venous Blood Gas Refer to POC result
[2023-07-05 16:20] LABS: Ammonia 33 umol/L (13-55)
[2023-07-05] MEDS: Doxycycline Hyclate 100 MG in 0.9 % Sodium Chloride 250 ML 166.67 MG IV (18:02)
[2023-07-05 20:00] VITALS: BP 100/51; PULSE 85; RESP 20; TEMP 37.6; O2SAT 94
[2023-07-05] MEDS: Lactated Ringers 1,000 ML 100 ML IVCONT (20:03)
[2023-07-05] MEDS: cloBAZam 10 MG TABLET 15 MG PO (21:31)
[2023-07-05 22:24] VITALS: TEMP 37.7
[2023-07-06 04:00] VITALS: BP 104/56; PULSE 85; RESP 20; O2SAT 95
[2023-07-06] MEDS: Acetaminophen Supp 650 MG SUPP.RECT PR ×2 (04:02→10:56)
[2023-07-06 04:14] VITALS: TEMP 37.9
[2023-07-06] MEDS: Piperacillin Sodium/Tazobactam 3.375 GM in 0.9 % Sodium Chloride 50 ML IV ×4 (05:21→23:30)
[2023-07-06] MEDS: Doxycycline Hyclate 100 MG in 0.9 % Sodium Chloride 250 ML 166.67 MG IV (05:51)
[2023-07-06] MEDS: Lactated Ringers 1,000 ML 100 ML IVCONT ×2 (05:51→20:05)
--- NOTE | 2023-07-06 06:09 | PC.NURSE ---
Patient mom is requesting patient be transferred to [facility]. General surgeon notified and said that transfer and plan of care could be discussed in the morning. Patient mom made aware and was okay with the plan.
[2023-07-06 07:55] VITALS: BP 111/56; PULSE 81; RESP 12; TEMP 37.7; O2SAT 95
--- NOTE | 2023-07-06 08:06 | PM.PNGS ---
Subjective Subjective Date of Service: 07/06/23 <Peri Rodríguez PA-C - Last Filed: 07/06/23 08:13> 07/06/23 <Ronny Silverman MD - Last Filed: 07/06/23 14:39> Interval history: Mom is more concerned that she is still lethargic, febrile. Reports that she seems to have been choking at home with eating. <Peri Rodríguez PA-C - Last Filed: 07/06/23 08:13> Physical Exam Vital Signs: Vital Signs: Last Vital Signs Temp 99.9 F 07/06/23 07:55 Pulse 81 07/06/23 07:55 Resp 12 07/06/23 07:55 BP 111/56 L 07/06/23 07:55 Pulse Ox 95 07/06/23 07:55 O2 Del Method Nasal Cannula 07/06/23 07:55 O2 Flow Rate 2 07/06/23 07:55 BMI result Body Mass Index 24.6 <Peri Rodríguez PA-C - Last Filed: 07/06/23 08:13> Const: General: lethargic <Peri Rodríguez PA-C - Last Filed: 07/06/23 08:13> Orientation/consciousness: lethargic <BERNABE Callaway Last Filed: 07/06/23 08:13> Resp: Effort & Inspection: normal respiratory effort and no respiratory distress <Peri Rodríguez PA-C - Last Filed: 07/06/23 08:13> GI: Inspection: No distended <Peri Rodríguez PA-C - Last Filed: 07/06/23 08:13> Palpation (GI): Soft to palpation, nontender, no guarding and not rigid <Peri Rodríguez PA-C - Last Filed: 07/06/23 08:13> Skin: General skin exam: no rashes or lesions noted <BERNABE Callaway Last Filed: 07/06/23 08:13> Objective Data Active Medications Acetaminophen (Acetaminophen 325 Mg Tablet) 975 mg PO Q6H PRN PRN Reason: Pain, Mild (Pain Scale 1-3) Last Admin: 07/05/23 12:20 Dose: 325 mg Documented By: YARED Comments: pt only ended up taking one tab Acetaminophen (Acetaminophen Supp 650 Mg Supp.Rect) 650 mg [place] Q6H PRN PRN Reason: Fever >100.4 Last Admin: 07/06/23 04:02 Dose: 650 mg Documented By: LINDA Clobazam (Clobazam 10 Mg Tablet) 15 mg PO BEDTIME [facility] Last Admin: 07/05/23 21:31 Dose: 15 mg Documented By: LINDA Clobazam (Clobazam 10 Mg Tablet) 10 mg PO DAILY [facility] Last Admin: 07/05/23 08:30 Dose: 10 mg Documented By: YARED Clobazam (Clobazam 10 Mg Tablet) 5 mg PO DAILY@1500 [facility] Last Admin: 07/05/23 15:20 Dose: 5 mg Documented By: YARED Valproic Acid 1,250 mg/ (Dextrose) 62.5 mls @ 60 mls/hr IV BID [facility] Last Infusion: 07/05/23 22:38 Dose: Infused Documented By: LINDA Piperacillin Sod/Tazobactam (Sod 3.375 gm/ Sodium Chloride) 50 mls @ 100 mls/hr IV Q6H [facility] Last Infusion: 07/06/23 05:56 Dose: Infused Documented By: LINDA Lactated Ringer's (Lr) 1,000 mls @ 100 mls/hr IVCONT .Q10H [facility] Last Admin: 07/06/23 05:51 Dose: 100 mls/hr Documented By: LINDA Doxycycline Hyclate 100 mg/ (Sodium Chloride) 250 mls @ 166.67 mls/hr IV Q12H [facility] Last Infusion: 07/06/23 08:01 Dose: Infused Documented By: PETER Levothyroxine Sodium (Levothyroxine Sodium 100 Mcg/5 Ml Vial) 44 mcg IVPUSH DAILY [facility] Last Admin: 07/05/23 08:29 Dose: 44 mcg Documented By: YARED Patient Own Medication Guanfacine 1 Mg 1 each PO BID [facility] Last Admin: 07/05/23 21:31 Dose: 1 each Documented By: LINDA Ondansetron HCl (Ondansetron Hcl 4 Mg/2 Ml Vial) 4 mg IVPUSH Q8H PRN PRN Reason: Nausea and Vomiting Sodium Chloride (0.9 % Sodium Chloride Flush 3 Ml Syringe) 3 ml IVFLUSH QSHIFT [facility] Last Admin: 07/05/23 22:18 Dose: Not Given Documented By: LINDA Non-Admin Reason: IV Running Topiramate (Topiramate 100 Mg Tablet) 200 mg PO BID [facility] Last Admin: 07/05/23 21:31 Dose: 200 mg Documented By: LINDA <Peri Rodríguez PA-C - Last Filed: 07/06/23 08:13> Labs CBC & Chem 7: 07/06/23 07:59 07/06/23 07:59 <Peri Rodríguez PA-C - Last Filed: 07/06/23 08:13> Labs: Laboratory Results - last 24 hr 07/05/23 07/05/23 16:06 16:10 VBG pH 7.27 L VBG pCO2 45 VBG pO2 37 VBG HCO3 21 L VBG O2 Saturation 56.0 VBG Base Excess -5.1 Ammonia 33 <Peri Rodríguez PA-C - Last Filed: 07/06/23 08:13> Microbiology Microbiology Results: Microbiology 07/03/23 04:08 Blood Culture - Preliminary Blood - Venous No growth after 48 hours. 07/03/23 04:03 Blood Culture - Preliminary Blood - Venous No growth after 48 hours. <Peri Rodríguez PA-C - Last Filed: 07/06/23 08:13> Procedures Date of Service Date of Service: 07/06/23 <Peri Rodríguez PA-C - Last Filed: 07/06/23 08:13> 07/06/23 <Ronny Silverman MD - Last Filed: 07/06/23 14:39> Progress Note: A&P Assessment and plan (1) Abdominal pain: Status: Acute <Peri Rodríguez PA-C - Last Filed: 07/06/23 08:13> Assessment and Plan: according to mother - seems to be coughing and choking on secretions had fever last night CXR suggests pneumonia abd remains soft, no obvious tenderness will do ffup CT scan in view of fever dw plan with mom - she understands and is comfortable aspiration risk <Ronny Silverman MD - Last Filed: 07/06/23 14:39> (2) Fever: Status: Acute <Peri Rodríguez PA-C - Last Filed: 07/06/23 08:13> Assessment and Plan: Abdomen remains benign and WBC has normalized likely ileitis improving but will obtain repeat CT scan as mom remains concerned. Fevers, lethargy likely from PNA. Hospitalists following, now on zosyn and doxycycline. ?Aspirating- mom reports frequent choking at home. On aspiration precautions, NPO. <Peri Rodríguez PA-C - Last Filed: 07/06/23 08:13> Time Spent With Patient Time: Total time managing care of this patient today ____ minutes. <Peri Rodríguez PA-C - Last Filed: 07/06/23 08:13> Quality Stroke Does the patient have a stroke diagnosis?: No <Peri Rodríguez PA-C - Last Filed: 07/06/23 08:13> VTE Prior VTE?: No <Peri Rodríguez PA-C - Last Filed: 07/06/23 08:13> VTE Risk Level:: Surgical - low <Peri Rodríguez PA-C - Last Filed: 07/06/23 08:13> VTE Device Contraindication: Treatment Not Indicated <Peri Rodríguez PA-C - Last Filed: 07/06/23 08:13> VTE Drug Contraindication: Treatment Not Indicated <Peri Rodríguez PA-C - Last Filed: 07/06/23 08:13>
[2023-07-06 09:02] LABS: MANUAL DIFF FLAG NO
[2023-07-06 09:15] LABS: Basophils Percent Auto 0.2 % (0-2); Hematocrit 28.7 % (37.0-47.0); Imm Gran Abs Auto 0.03 X10*3/uL (0.00-0.03); Imm Gran Pct Auto 0.6 % (0.0-0.4); Lymphocytes Absolute Auto 1.3 X10*3/uL (1.2-4.9); Lymphocytes Percent Auto 24.8 % (20-40); Mean Corpuscular HGB Conc 31.4 g/dl (31.0-35.0); Mean Corpuscular Hemoglobin 31.3 pg (27.0-33.0); Mean Corpuscular Volume 99.7 fL (80.0-98.0); Mean Platelet Volume 10.9 fL (9.4-12.3); Monocytes Absolute Auto 0.6 X10*3/uL (0.1-1.2); Monocytes Percent Auto 11.6 % (2-11); Neutrophils Absolute Auto 3.3 x10*3/uL (2.0-8.3); Neutrophils Percent Auto 62.8 % (45-73); Red Blood Count 2.88 X10*6/uL (4.20-5.50); White Blood Count 5.3 X10*3/uL (4.8-10.8)
[2023-07-06 09:16] LABS: Platelet Count 67 X10*3/uL (160-400)
[2023-07-06] MEDS: iohexoL 350 MG/ML 75 ML INFUS..BTL 85 ML IV (09:27)
[2023-07-06 09:33] LABS: Alanine Aminotransferase < 5 U/L (0-31); Albumin Level 2.3 g/dL (3.5-5.0); Alkaline Phosphatase 47 U/L (39-117); Anion Gap 11 (12-20); Aspartate Amino Transferase 10 U/L (5-31); Bilirubin Direct < 0.2 mg/dL (0.0-0.5); Bilirubin Total 0.1 mg/dL (0.0-1.0); Blood Urea Nitrogen 13 mg/dL (9-16); Calcium 8.7 mg/dL (8.4-10.2); Carbon Dioxide 22 mmol/L (22-29); Chloride 114 mmol/L (96-108); Creatinine Clr Calc Pharmacy 139.1; Estimated Glomerular Filt Rate > 60; Glucose Random 66 mg/dL (60-115); Potassium 3.2 mmol/L (3.3-5.1); Sodium 144 mmol/L (135-145); Total Protein 5.1 g/dL (6.5-8.0)
[2023-07-06] MEDS: VALPROIC ACID IV ×2 (10:57→20:06)
[2023-07-06] MEDS: DEXTROSE 5% IV ×2 (10:57→20:06)
[2023-07-06] MEDS: 0.9 % Sodium Chloride Flush 3 ML SYRINGE IVFLUSH ×2 (10:59→17:46)
[2023-07-06] MEDS: cloBAZam 10 MG TABLET PO (11:04)
[2023-07-06] MEDS: Levothyroxine Sodium 100 MCG/5 ML VIAL 44 MCG IVPUSH (12:29)
[2023-07-06] MEDS: Topiramate 100 MG TABLET 200 MG PO ×2 (12:29→20:07)
[2023-07-06] MEDS: oxyCODONE HCl Immed Release 5 MG TABLET PO ×2 (14:18→21:26)
--- NOTE | 2023-07-06 14:32 | PM.EVENT ---
Event Note Date of Service: 07/09/23 Event Note: Follow-up CT reviewed - persistent inflammatory changes surrounding the cecum and terminal ileum Appendix not identified Question of terminal ileitis, cellulitis, typhilitis; appendicitis not ruled out; no appendicolith IR consulted - no drainable fluid collection Abdomen remained soft and benign WBC normal, platelets low which seems to be as baseline I have reviewed the above with the mother at bedside I explained to her that exact etiology of inflammatory process is uncertain Abdomen however remains soft and benign on palpation Pneumonia on chest x-ray The plan is to continue with IV antibiotic treatment for now GI consulted IV fluids The mother understands the plan and is comfortable with this She states she would like to avoid surgery as much as possible Plan to do a follow-up CT scan ? Sunday I did explain to her that surgery still a possibility if abdominal exam worsens Time Spent With Patient Time: Total time managing care of this patient today ____ minutes.
--- NOTE | 2023-07-06 14:34 | HO.PM.IMPN ---
Subjective Subjective Date of Service: 07/06/23 Interval History: seen and examined this morning follow up for ?appendicitis cxr with pneumonia patient nonverbal, unable to obtain history, ROS mom at bedside reports still more lethargic then baseline Physical Exam Vital Signs: Vital Signs: Last Vital Signs Temp 99.9 F 07/06/23 07:55 Pulse 81 07/06/23 07:55 Resp 12 07/06/23 07:55 BP 111/56 L 07/06/23 07:55 Pulse Ox 95 07/06/23 07:55 O2 Del Method Nasal Cannula 07/06/23 07:55 O2 Flow Rate 2 07/06/23 07:55 BMI result Body Mass Index 24.6 Const: Other: lying in bed, appears comfortable sleepy but opens eyes and looks around nonverbal, unable to assess orientation Nutritional Appearance: average body habitus Resp: Other: no cough during examination Effort & Inspection: normal respiratory effort, no respiratory distress and no use of accessory muscles Auscultation: clear to auscultation bilaterally Cardio: Rate: regular rate GI: Inspection: No distended Palpation (GI): Soft to palpation Neuro: Other: nonverbal Objective Data Active Medications Acetaminophen (Acetaminophen 325 Mg Tablet) 975 mg PO Q6H PRN PRN Reason: Pain, Mild (Pain Scale 1-3) Last Admin: 07/05/23 12:20 Dose: 325 mg Documented By: YARED Comments: pt only ended up taking one tab Acetaminophen (Acetaminophen Supp 650 Mg Supp.Rect) 650 mg AK Q6H PRN PRN Reason: Fever >100.4 Last Admin: 07/06/23 10:56 Dose: 650 mg Documented By: PETER Clobazam (Clobazam 10 Mg Tablet) 15 mg PO BEDTIME [facility] Last Admin: 07/05/23 21:31 Dose: 15 mg Documented By: LINAD Clobazam (Clobazam 10 Mg Tablet) 10 mg PO DAILY [facility] Last Admin: 07/06/23 11:04 Dose: 10 mg Documented By: PETER Clobazam (Clobazam 10 Mg Tablet) 5 mg PO DAILY@1500 [facility] Last Admin: 07/05/23 15:20 Dose: 5 mg Documented By: YARED Valproic Acid 1,250 mg/ (Dextrose) 62.5 mls @ 60 mls/hr IV BID [facility] Last Infusion: 07/06/23 12:05 Dose: Infused Documented By: PETER Piperacillin Sod/Tazobactam (Sod 3.375 gm/ Sodium Chloride) 50 mls @ 100 mls/hr IV Q6H [facility] Last Infusion: 07/06/23 13:23 Dose: Infused Documented By: PETER Lactated Ringer's (Lr) 1,000 mls @ 100 mls/hr IVCONT .Q10H [facility] Last Admin: 07/06/23 05:51 Dose: 100 mls/hr Documented By: LINDA Doxycycline Hyclate 100 mg/ (Sodium Chloride) 250 mls @ 166.67 mls/hr IV Q12H [facility] Last Infusion: 07/06/23 08:01 Dose: Infused Documented By: PETER Acetaminophen (Ofirmev) 1,000 mg in 100 mls @ 400 mls/hr IV Q6H PRN PRN Reason: pain, severe Stop: 07/07/23 08:14 Potassium Chloride (Potassium Chloride/H20) 10 meq in 100 mls @ 100 mls/hr IV Q1H [facility] Stop: 07/06/23 16:29 Levothyroxine Sodium (Levothyroxine Sodium 100 Mcg/5 Ml Vial) 44 mcg IVPUSH DAILY [facility] Last Admin: 07/06/23 12:29 Dose: 44 mcg Documented By: PETER Patient Own Medication Guanfacine 1 Mg 1 each PO BID [facility] Last Admin: 07/06/23 12:29 Dose: 1 each Documented By: PETER Ondansetron HCl (Ondansetron Hcl 4 Mg/2 Ml Vial) 4 mg IVPUSH Q8H PRN PRN Reason: Nausea and Vomiting Oxycodone HCl (Oxycodone Hcl Immed Release 5 Mg Tablet) 5 mg PO Q4H PRN PRN Reason: Pain, Moderate(Pain Scale 4-6) Last Admin: 07/06/23 14:18 Dose: 5 mg Documented By: PETER Sodium Chloride (0.9 % Sodium Chloride Flush 3 Ml Syringe) 3 ml IVFLUSH QSHIFT [facility] Last Admin: 07/06/23 10:59 Dose: 3 ml Documented By: PETER Topiramate (Topiramate 100 Mg Tablet) 200 mg PO BID [facility] Last Admin: 07/06/23 12:29 Dose: 200 mg Documented By: PETER Labs 07/06/23 07:59 07/06/23 07:59 Labs: Laboratory Results - last 24 hr 07/05/23 07/05/23 07/06/23 16:06 16:10 07:59 MCV 99.7 H MCH 31.3 MCHC 31.4 RDW 12.0 Plt Count 67 L MPV 10.9 Immature Gran % (Auto) 0.6 H Neut % (Auto) 62.8 Lymph % (Auto) 24.8 Dawson % (Auto) 11.6 H Eos % (Auto) 0.0 Baso % (Auto) 0.2 Lymph # (Auto) 1.3 Dawson # (Auto) 0.6 Eos # (Auto) 0.0 Baso # (Auto) 0.0 Abs Immat Gran (auto) 0.03 Absolute Neuts (auto) 3.3 Absolute Nucleated RBC 0.000 Nucleated RBC % (auto) 0.0 VBG pH 7.27 L VBG pCO2 45 VBG pO2 37 VBG HCO3 21 L VBG O2 Saturation 56.0 VBG Base Excess -5.1 Anion Gap 11 L Estim Creat Clear Calc 139.1 Estimated GFR > 60 Random Glucose 66 Calcium 8.7 Total Bilirubin 0.1 Direct Bilirubin < 0.2 AST 10 ALT < 5 Alkaline Phosphatase 47 Ammonia 33 Total Protein 5.1 L Albumin 2.3 L Assessment and Plan (1) Abdominal pain: Status: Acute (2) Fever: Status: Acute (3) Pneumonia: Status: Acute Plan 22 year old female with cerebral palsy, Nelson Gastaut syndrome, autism disorder, hypothryroidism, who is nonverbal and non communicative at baseline admitted to general surgery for management of probable appendicitis with consult placed to hospitalist service for medical management. Dance Director is mother, Lucretia, who provides history at bedside. Abdominal pain /inflammatory changes around the appendix and cecum, initially thought due to appendicitis febrile, tachycardic tachypenic, leukocytosis on arrival. low grade fever overnight WBC normalized repeat CT abdomen 07/06 ?infectious or inflammatory bowel disease general surgery following, continue IV Zosyn started on 07/03, plan for conservative management at this time GI consult pending Baseline diet is NDD2, regular thin liquids pneumonia cxr showing pneumonia, no sepsis doxy added, will change to vanco ?aspiration per family - speech eval pending aspiration precautions Lethargy family concerned for lethargy, similar to on admission wbc count resolved, urine culture and blood cultures negative LFTs normal on admission on baseline medications ammonia, renal function normal likely due to underlying infectious process neuro consult pending hypokalemia k 3.2 due to decreased po intake replace IV follow BMP hyperchloremic metabolic acidosis likely due to fluids NS discontinued resolved, bicarb 22 [place] Gastaut syndrome well controlled with history of grand mal seizures. continue IV depakote, by mouth clobazam, topamax Per Dr. Montejo at [facility], periopertive management with IV diazepam if needed. [facility] records reviewed thrombocytopenia chronic. follow CBC Hypothyroidism continue IV synthroid will resume guanfacine centrally acting alpha 2 adrenergic receptor stimulant patient use for tics disorder, Can not be stopped abruptly. Disposition as per General surgery Quality Stroke Does the patient have a stroke diagnosis?: No VTE Prior VTE?: No VTE Risk Level:: Surgical - low VTE Device Contraindication: Treatment Not Indicated VTE Drug Contraindication: Treatment Not Indicated
[2023-07-06 15:29] VITALS: BP 112/53; PULSE 89; RESP 14; TEMP 37.3; O2SAT 92
[2023-07-06] MEDS: cloBAZam 10 MG TABLET 5 MG PO (16:16)
[2023-07-06] MEDS: Potassium Chloride/H20 10 MEQ/100 ML PIGGYBACK 100 MEQ IV ×2 (16:16→18:36)
--- NOTE | 2023-07-06 16:30 | MHC.SLORD ---
Speech Language Pathology Order Status: TODDLER CAREGIVER attempted to see pt for bedside swallow evaluation this afternoon. Pt was accompanied by her mother/well site drilling engineer (Lucretia) and was receiving nursing care at the time. Lucretia reports that pt eats soft foods at home, which are cut into small pieces and very moist. She noticed pt has been coughing and choking on liquids. Lucretia reports this started happening this week and noted 3-4 episodes. Pt's CXR is suggestive of PNA. Pt appeared sleepy this afternoon, intermittently opening her eyes when spoken to then falling back asleep. She was given water by teaspoon and sippy cup, with entire bolus spilling out of her mouth. Pt would not swallow applesauce. Unable to evaluate due to pt's somnolent state. TODDLER CAREGIVER is available for call-in over the weekend should pt be able to participate, otherwise TODDLER CAREGIVER consult is on hold until Sunday morning. TODDLER CAREGIVER notified PA and RN.
[2023-07-06] MEDS: vancomycin HCL 1,250 MG in 0.9 % Sodium Chloride 250 ML 166.67 MG IV (16:57)
--- NOTE | 2023-07-06 17:34 | PHA.PROG ---
Admission Date/Time: July 03, 2023 09:39 Indication: Pneumonia Weight in k.5 kg Serum Creatinine - Last 168 Hours 07/03/23 07/04/23 07/05/23 04:03 14:21 05:06 Creatinine 0.63 0.47 L 0.43 L 07/06/23 07:59 Creatinine 0.46 L Estimated CrCl and GFR - Last 168 Hours 07/03/23 07/04/23 07/05/23 04:03 14:21 05:06 Estim Creat Clear Calc TNP 136.1 148.8 Estimated GFR > 60 > 60 > 60 07/06/23 07:59 Estim Creat Clear Calc 139.1 Estimated GFR > 60 Vancomycin Loading Dose: 1,250mg Current Vancomycin Dosing Regimen: 1,000mg Q8H Vancomycin Monitoring using AUC goal of 400 - 600 range with trough as surrogate marker: 586 Date and Time for next Vancomycin Level to be drawn: 07/07 1500 Pharmacist Comments on Vancomycin Plan: Vancomycin dosing will take advantage of [employer] as a clinical decision support tool that uses Bayesian modeling to calculate individual patient's pharmacokinetic parameters and forecast the patient's drug concentration time course with the target goal AUC 24 range of 400 - 600 mg/L/hr.
[2023-07-06] MEDS: Acetaminophen 1,000 MG/100 ML PIGGYBACK 400 MG IV (17:35)
[2023-07-06 19:25] VITALS: BP 99/49; PULSE 83; RESP 18; O2SAT 91
[2023-07-06] MEDS: cloBAZam 10 MG TABLET 15 MG PO (20:07)
[2023-07-07] VITALS (8 sets, daily range): BP systolic 99–113; BP diastolic 52–70; PULSE 79–97; RESP 16–18; TEMP 36.4–36.8; O2SAT 90–95
[2023-07-07] MEDS: Acetaminophen 1,000 MG/100 ML PIGGYBACK 400 MG IV ×4 (00:03→21:16)
[2023-07-07] MEDS: vancomycin HCL 1,000 MG in 0.9 % Sodium Chloride 250 ML 270 MG IV ×3 (00:59→17:04)
[2023-07-07] MEDS: Ketorolac Tromethamine 15 MG/ML VIAL IVPUSH (02:16)
[2023-07-07] MEDS: 0.9 % Sodium Chloride 1,000 ML 999 ML IV (02:18)
[2023-07-07 02:57] LABS: MANUAL DIFF FLAG NO
[2023-07-07 03:00] LABS: Hemoglobin 9.8 g/dl (12.0-16.0); Imm Gran Abs Auto 0.01 X10*3/uL (0.00-0.03); Imm Gran Pct Auto 0.3 % (0.0-0.4); Lymphocytes Percent Auto 24.9 % (20-40); Mean Corpuscular HGB Conc 31.6 g/dl (31.0-35.0); Mean Corpuscular Hemoglobin 31.4 pg (27.0-33.0); Mean Corpuscular Volume 99.4 fL (80.0-98.0); Mean Platelet Volume 10.7 fL (9.4-12.3); Monocytes Absolute Auto 0.6 X10*3/uL (0.1-1.2); Monocytes Percent Auto 14.3 % (2-11); Neutrophils Absolute Auto 2.4 x10*3/uL (2.0-8.3); Neutrophils Percent Auto 60.5 % (45-73); Red Blood Count 3.12 X10*6/uL (4.20-5.50); Red Cell Distribution Width 12.3 % (11.0-16.0)
[2023-07-07 03:01] LABS: Platelet Count 86 X10*3/uL (160-400)
[2023-07-07 03:10] LABS: Lactic Acid 0.9 mmol/L (0.5-2.0)
[2023-07-07 03:14] LABS: Alanine Aminotransferase 5 U/L (0-31); Albumin Level 2.5 g/dL (3.5-5.0); Alkaline Phosphatase 62 U/L (39-117); Anion Gap 13 (12-20); Aspartate Amino Transferase 15 U/L (5-31); Bilirubin Total 0.1 mg/dL (0.0-1.0); Blood Urea Nitrogen 6 mg/dL (9-16); Calcium 8.6 mg/dL (8.4-10.2); Carbon Dioxide 23 mmol/L (22-29); Chloride 108 mmol/L (96-108); Creatinine Clr Calc Pharmacy 114.2; Estimated Glomerular Filt Rate > 60; Glucose Random 67 mg/dL (60-115); Potassium 3.3 mmol/L (3.3-5.1); Sodium 141 mmol/L (135-145); Total Protein 5.7 g/dL (6.5-8.0)
[2023-07-07] MEDS: Piperacillin Sodium/Tazobactam 3.375 GM in 0.9 % Sodium Chloride 50 ML IV ×3 (05:18→18:34)
--- NOTE | 2023-07-07 08:41 | P.CNGI_ITS ---
History of Present Illness Data of Consult Service Date: 07/07/23 Requesting physician: Ronny Silverman Primary Care Provider: [facility] Reason for consult: colitis 22 year old female with cerebral palsy, seizure disorder, who I am seeing for assessment for colitis. Initially brought to hospital by mother due to lethargy and change in behavior, patient discomfort in abdomen. She is normally constipated at baseline, mother has not noted any blood in stools, no mucous or diarrhea. There was a cough and patient now being treated for pneumonia as well. CT scan revealed inflmmatory changes in the right colon and TI, which persist in a follow up CT few days later along with fluid collection patient is non verbal at baseline but mother feels she is more alert today and seems more responsive. 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 Family History Pertinent family history: aunt has crohns disease Social History Social History Household Members: Family Housing: House Do you presently have visiting nurse or other home services: No Comment: mother in room Patient Tobacco Use Status: Never used Tobacco service: No Meds Allergies Allergy/AdvReac Type Severity Reaction Status Date / Time No Known Allergies Allergy Unverified 01/29/20 17:00 Active Medications: Current Medications Acetaminophen (Acetaminophen 325 Mg Tablet) 975 mg PO Q6H PRN PRN Reason: Pain, Mild (Pain Scale 1-3) Last Admin: 07/05/23 12:20 Dose: 325 mg Clobazam (Clobazam 10 Mg Tablet) 15 mg PO BEDTIME [facility] Last Admin: 07/06/23 20:07 Dose: 15 mg Clobazam (Clobazam 10 Mg Tablet) 10 mg PO DAILY [facility] Last Admin: 07/06/23 11:04 Dose: 10 mg Clobazam (Clobazam 10 Mg Tablet) 5 mg PO DAILY@1500 JUL[facility] CESAR Last Admin: 07/06/23 16:16 Dose: 5 mg Valproic Acid 1,250 mg/ (Dextrose) 62.5 mls @ 60 mls/hr IV BID [facility] Last Infusion: 07/06/23 21:27 Dose: Infused Piperacillin Sod/Tazobactam (Sod 3.375 gm/ Sodium Chloride) 50 mls @ 100 mls/hr IV Q6H [facility] Last Infusion: 07/07/23 06:00 Dose: Infused Lactated Ringer's (Lr) 1,000 mls @ 100 mls/hr IVCONT .Q10H [facility] Last Infusion: 07/06/23 21:28 Dose: 0 mls/hr Vancomycin HCl 1,000 mg/ (Sodium Chloride) 270 mls @ 270 mls/hr IV Q8H [facility] Last Admin: 07/07/23 08:29 Dose: 270 mls/hr Acetaminophen (Ofirmev) 1,000 mg in 100 mls @ 400 mls/hr IV Q6H PRN PRN Reason: Pain, Mild (Pain Scale 1-3) Last Infusion: 07/07/23 01:13 Dose: Infused Levothyroxine Sodium (Levothyroxine Sodium 100 Mcg/5 Ml Vial) 44 mcg IVPUSH DAILY [facility] Last Admin: 07/06/23 12:29 Dose: 44 mcg Patient Own Medication Guanfacine 1 Mg 1 each PO BID [facility] Last Admin: 07/06/23 20:07 Dose: 1 each Ondansetron HCl (Ondansetron Hcl 4 Mg/2 Ml Vial) 4 mg IVPUSH Q8H PRN PRN Reason: Nausea and Vomiting Oxycodone HCl (Oxycodone Hcl Immed Release 5 Mg Tablet) 5 mg PO Q4H PRN PRN Reason: Pain, Moderate(Pain Scale 4-6) Last Admin: 07/06/23 21:26 Dose: 5 mg Pharmacy Consult (Consult Rx Vancomycin Dosing) 1 each MISCELLANE DAILY PRN PRN Reason: Consult order Sodium Chloride (0.9 % Sodium Chloride Flush 3 Ml Syringe) 3 ml IVFLUSH QSHIFT [facility] Last Admin: 07/06/23 21:28 Dose: Not Given Topiramate (Topiramate 100 Mg Tablet) 200 mg PO BID [facility] Last Admin: 07/06/23 20:07 Dose: 200 mg Home Medications Medication Instructions Recorded Confirmed Last Taken Type clobazam 10 mg tablet 7.5 mg PO DAILY@1500 07/03/23 07/03/23 Unknown History clobazam 10 mg tablet 10 mg PO DAILY 07/03/23 07/03/23 Unknown History clobazam 10 mg tablet 15 mg PO BEDTIME 07/03/23 07/03/23 Unknown History clonidine HCl 0.1 mg tablet 0.1 mg PO BEDTIME 07/03/23 07/03/23 Unknown History divalproex 125 mg capsule,delayed 1,250 mg PO BID 07/03/23 07/03/23 Unknown History release sprinkle (Depakote Sprinkles) guanfacine 1 mg tablet 1 mg PO BID 07/03/23 07/03/23 Unknown History levothyroxine 88 mcg tablet 88 mcg PO DAILY@0630 07/03/23 07/03/23 Unknown History topiramate 100 mg tablet 200 mg PO BID 07/03/23 07/03/23 Unknown History Physical Exam 2 Vital Signs: Vital Signs: Last Vital Signs Temp 97.6 F 07/07/23 03:58 Pulse 96 07/07/23 07:03 Resp 16 07/07/23 07:03 BP 110/52 L 07/07/23 07:03 Pulse Ox 92 07/07/23 07:03 O2 Del Method Nasal Cannula 07/07/23 07:03 O2 Flow Rate 3 07/07/23 07:03 BMI result Body Mass Index 24.6 EXAM: GENERAL: The patient is non verbal, dysmorphic facies VITAL SIGNS:see workflow HEENT: Nonicteric sclerae, PERRLA, EOMI. Oropharynx clear. Moist mucous membranes. Conjunctivae appear well perfused. No thyroid mass. CHEST: Chest wall is nontender. HEART: Regular rate and rhythm without murmurs. LUNGS: Clear to auscultation bilaterally. ABDOMEN: Soft, positive bowel sounds, nontender, no organomegaly.no flank tenderness SKIN: No rash, no excessive bruising, petechiae, or purpura. NEUROLOGIC: Cranial nerves II-XII intact without motor/sensory deficit. Results Labs 07/07/23 02:51 07/07/23 09:23 Labs: Short CBC 07/06/23 07/07/23 Range/Units 07:59 02:51 WBC 5.3 4.0 L (4.8-10.8) X10*3/uL Hgb 9.0 L 9.8 L (12.0-16.0) g/dl Hct 28.7 L 31.0 L (37.0-47.0) % Plt Count 67 L 86 L D (160-400) X10*3/uL BMP 07/06/23 07/07/23 07:59 02:51 Sodium 144 141 Potassium 3.2 L 3.3 Chloride 114 H 108 Carbon Dioxide 22 23 BUN 13 6 L Creatinine 0.46 L 0.56 Calcium 8.7 8.6 Liver Function 07/06/23 07/07/23 Range/Units 07:59 02:51 Total Bilirubin 0.1 0.1 (0.0-1.0) mg/dL Direct Bilirubin < 0.2 (0.0-0.5) mg/dL AST 10 15 (5-31) U/L ALT < 5 5 (0-31) U/L Alkaline Phosphatase 47 62 (39-117) U/L Albumin 2.3 L 2.5 L (3.5-5.0) g/dL Microbiology Microbiology Results: Microbiology 07/03/23 04:08 Blood - Venous Blood Culture - Preliminary No growth after 48 hours. 07/03/23 04:03 Blood - Venous Blood Culture - Preliminary No growth after 48 hours. 07/03/23 Unknown Urine clean catch - Urine murcia top Urine Culture - Final Imaging CT scan - abdomen: Attestation: I personally reviewed and interpreted this imaging study as follows: (fluid collection right side, thickened TI and cecum) Assessment and Plan (1) Colitis: Status: Acute Plan 1/ Right sided colitis and ileitis with fluid collection, been on antibiotics with persistent findings on repeat CT. CRP markedly elevated with leucopenia. DDX: crohns, appendicitis (might have retrocecal appendix), much less likely infiltrative disease e.g lymphoma, PLAN: 1/ Discussed options with mum, including trial of steroids with risk of perf and infection but if IBD might help, unprepped colonoscopy but still risk of perf, surgery and watchful observation. Mother would like watchful observation as she feels there is some improvement. CRP markedly elevated and can be monitored to see if there is a objective improvement. Procedures Date of Service Date of Service: 07/07/23
[2023-07-07] MEDS: DEXTROSE 5% IV ×2 (09:40→20:35)
[2023-07-07] MEDS: VALPROIC ACID IV ×2 (09:40→20:35)
[2023-07-07] MEDS: Levothyroxine Sodium 100 MCG/5 ML VIAL 44 MCG IVPUSH (09:40)
[2023-07-07] MEDS: Topiramate 100 MG TABLET 200 MG PO ×2 (09:41→20:34)
[2023-07-07] MEDS: cloBAZam 10 MG TABLET PO (09:41)
[2023-07-07] MEDS: 0.9 % Sodium Chloride Flush 3 ML SYRINGE IVFLUSH (09:41)
[2023-07-07] MEDS: Lactated Ringers 1,000 ML 100 ML IVCONT (09:42)
[2023-07-07 09:56] LABS: Anion Gap 14 (12-20); Blood Urea Nitrogen 5 mg/dL (9-16); Calcium 8.3 mg/dL (8.4-10.2); Carbon Dioxide 25 mmol/L (22-29); Chloride 107 mmol/L (96-108); Creatinine Clr Calc Pharmacy 125.5; Estimated Glomerular Filt Rate > 60; Glucose Random 68 mg/dL (60-115); Potassium 3.5 mmol/L (3.3-5.1); Sodium 142 mmol/L (135-145)
--- NOTE | 2023-07-07 10:37 | P.PNGS_ITS ---
Subjective Subjective Date of Service: 07/07/23 Interval history: White blood cell count normal. Patient's mother present and very attentive. States patient would like to try solid food. Some flatus passed. No bowel movement per se. Physical Exam 2 Vital Signs: Vital Signs: Last Vital Signs Temp 97.6 F 07/07/23 03:58 Pulse 96 07/07/23 07:03 Resp 16 07/07/23 07:03 BP 110/52 L 07/07/23 07:03 Pulse Ox 92 07/07/23 07:03 O2 Del Method Nasal Cannula 07/07/23 07:03 O2 Flow Rate 3 07/07/23 07:03 BMI result Body Mass Index 24.6 GI: Other: Abdomen appears soft, mildly lower abdominal tender but no evidence of any guarding, rebound, rigidity. Very difficult exam secondary to patient's mental handicap issues. Objective Data Active Medications Acetaminophen (Acetaminophen 325 Mg Tablet) 975 mg PO Q6H PRN PRN Reason: Pain, Mild (Pain Scale 1-3) Last Admin: 07/05/23 12:20 Dose: 325 mg Documented By: YARED Comments: pt only ended up taking one tab Clobazam (Clobazam 10 Mg Tablet) 15 mg PO BEDTIME [facility] Last Admin: 07/06/23 20:07 Dose: 15 mg Documented By: CHINO Clobazam (Clobazam 10 Mg Tablet) 10 mg PO DAILY [facility] Last Admin: 07/07/23 09:41 Dose: 10 mg Documented By: PETER Clobazam (Clobazam 10 Mg Tablet) 5 mg PO DAILY@1500 [facility] Last Admin: 07/06/23 16:16 Dose: 5 mg Documented By: PETER Valproic Acid 1,250 mg/ (Dextrose) 62.5 mls @ 60 mls/hr IV BID [facility] Last Admin: 07/07/23 09:40 Dose: 60 mls/hr Documented By: PETER Piperacillin Sod/Tazobactam (Sod 3.375 gm/ Sodium Chloride) 50 mls @ 100 mls/hr IV Q6H [facility] Last Infusion: 07/07/23 06:00 Dose: Infused Documented By: CHINO Lactated Ringer's (Lr) 1,000 mls @ 100 mls/hr IVCONT .Q10H [facility] Last Admin: 07/07/23 09:42 Dose: 100 mls/hr Documented By: PETER Vancomycin HCl 1,000 mg/ (Sodium Chloride) 270 mls @ 270 mls/hr IV Q8H [facility] Last Infusion: 07/07/23 09:55 Dose: Infused Documented By: PETER Acetaminophen (Ofirmev) 1,000 mg in 100 mls @ 400 mls/hr IV Q6H PRN PRN Reason: Pain, Mild (Pain Scale 1-3) Last Infusion: 07/07/23 09:42 Dose: Infused Documented By: PETER Levothyroxine Sodium (Levothyroxine Sodium 100 Mcg/5 Ml Vial) 44 mcg IVPUSH DAILY [facility] Last Admin: 07/07/23 09:40 Dose: 44 mcg Documented By: PETER Patient Own Medication Guanfacine 1 Mg 1 each PO BID [facility] Last Admin: 07/07/23 09:40 Dose: 1 each Documented By: PETER Ondansetron HCl (Ondansetron Hcl 4 Mg/2 Ml Vial) 4 mg IVPUSH Q8H PRN PRN Reason: Nausea and Vomiting Oxycodone HCl (Oxycodone Hcl Immed Release 5 Mg Tablet) 5 mg PO Q4H PRN PRN Reason: Pain, Moderate(Pain Scale 4-6) Last Admin: 07/06/23 21:26 Dose: 5 mg Documented By: CHINO Pharmacy Consult (Consult Rx Vancomycin Dosing) 1 each MISCELLANE DAILY PRN PRN Reason: Consult order Sodium Chloride (0.9 % Sodium Chloride Flush 3 Ml Syringe) 3 ml IVFLUSH QSHIFT [facility] Last Admin: 07/07/23 09:41 Dose: 3 ml Documented By: PETER Topiramate (Topiramate 100 Mg Tablet) 200 mg PO BID [facility] Last Admin: 07/07/23 09:41 Dose: 200 mg Documented By: PETER Labs 07/07/23 02:51 07/07/23 09:23 Labs: Laboratory Results - last 24 hr 07/07/23 07/07/23 02:51 09:23 MCV 99.4 H MCH 31.4 MCHC 31.6 RDW 12.3 Plt Count 86 L D MPV 10.7 Immature Gran % (Auto) 0.3 Neut % (Auto) 60.5 Lymph % (Auto) 24.9 [place] % (Auto) 14.3 H Eos % (Auto) 0.0 Baso % (Auto) 0.0 Lymph # (Auto) 1.0 L [place] # (Auto) 0.6 Eos # (Auto) 0.0 Baso # (Auto) 0.0 Abs Immat Gran (auto) 0.01 Absolute Neuts (auto) 2.4 Absolute Nucleated RBC 0.000 Nucleated RBC % (auto) 0.0 Anion Gap 13 14 Estim Creat Clear Calc 114.2 125.5 Estimated GFR > 60 > 60 Random Glucose 67 68 Lactic Acid 0.9 Calcium 8.6 8.3 L Total Bilirubin 0.1 AST 15 ALT 5 Alkaline Phosphatase 62 Total Protein 5.7 L Albumin 2.5 L Procedures Date of Service Date of Service: 07/07/23 Progress Note: A&P Assessment and plan (1) Abdominal pain: Status: Acute Plan Advanced diet as tolerated, out of bed, and direct further intervention studies by patient's clinical course. All mother's questions answered. Time Spent With Patient Time: Total time managing care of this patient today ____ minutes. Quality Stroke Does the patient have a stroke diagnosis?: No VTE Prior VTE?: No VTE Risk Level:: Surgical - low VTE Device Contraindication: Treatment Not Indicated VTE Drug Contraindication: Treatment Not Indicated
[2023-07-07 11:57] LABS: C Reactive Protein 16.46 mg/dL (< or = 0.50)
[2023-07-07 12:02] LABS: Adenovirus PCR Not Detected (Not Detect.); Bordetella parapertussis PCR Not Detected (Not Detect.); Bordetella pertussis PCR Not Detected (Not Detect.); Chlamydia pneumoniae PCR Not Detected (Not Detect.); Coronavirus 229E PCR Not Detected (Not Detect.); Coronavirus HKU1 PCR Not Detected (Not Detect.); Coronavirus NL63 PCR Not Detected (Not Detect.); Coronavirus OC43 PCR Not Detected (Not Detect.); Human metapneumovirus PCR Not Detected (Not Detect.); Influenza A PCR Not Detected (Not Detect.); Influenza B PCR Not Detected (Not Detect.); Mycoplasma pneumoniae PCR Not Detected (Not Detect.); Parainfluenza 1 PCR Not Detected (Not Detect.); Parainfluenza 2 PCR Not Detected (Not Detect.); Parainfluenza 3 PCR Not Detected (Not Detect.); Parainfluenza 4 PCR Not Detected (Not Detect.); RSV PCR Not Detected (Not Detect.); Rhino/Enterovirus PCR Not Detected (Not Detect.)
[2023-07-07 12:32] LABS: SARS-CoV-2 PCR Not Detected (Not Detect.)
--- NOTE | 2023-07-07 13:04 | PM.NEUROCN ---
History of Present Illness Data of Consult Service Date: 07/07/23 Primary Care Provider: [facility] Reason for consult: Epilepsy 22 years old female with severe cerebral palsy and associated epilepsy following a neurologist in [facility]. She has been bedridden and nonverbal. Her mother stated that her seizures have been control on present regimen of medicines. She was admitted in hospital with an acute abdomen with suspicion of appendicitis. While this was going on, there was concerned about her medications as she was taking medicine orally and sometime she was 2 drowsy not to take the medicine. Since I talked to the hospitalist yesterday, her belly has somewhat improved and she has continued to take oral medicines. No seizure was noted. 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 Social History Social History Household Members: Family Housing: House Do you presently have visiting nurse or other home services: No Comment: mother in room Patient Tobacco Use Status: Never used Tobacco service: No Meds Allergies Allergy/AdvReac Type Severity Reaction Status Date / Time No Known Allergies Allergy Unverified 01/29/20 17:00 Active Medications: Current Medications Acetaminophen (Acetaminophen 325 Mg Tablet) 975 mg PO Q6H PRN PRN Reason: Pain, Mild (Pain Scale 1-3) Last Admin: 07/05/23 12:20 Dose: 325 mg Clobazam (Clobazam 10 Mg Tablet) 15 mg PO BEDTIME [facility] Last Admin: 07/06/23 20:07 Dose: 15 mg Clobazam (Clobazam 10 Mg Tablet) 10 mg PO DAILY [facility] Last Admin: 07/07/23 09:41 Dose: 10 mg Clobazam (Clobazam 10 Mg Tablet) 5 mg PO DAILY@1500 [facility] Last Admin: 07/06/23 16:16 Dose: 5 mg Valproic Acid 1,250 mg/ (Dextrose) 62.5 mls @ 60 mls/hr IV BID [facility] Last Infusion: 07/07/23 11:15 Dose: Infused Piperacillin Sod/Tazobactam (Sod 3.375 gm/ Sodium Chloride) 50 mls @ 100 mls/hr IV Q6H [facility] Last Infusion: 07/07/23 12:55 Dose: Infused Lactated Ringer's (Lr) 1,000 mls @ 100 mls/hr IVCONT .Q10H [facility] Last Admin: 07/07/23 09:42 Dose: 100 mls/hr Vancomycin HCl 1,000 mg/ (Sodium Chloride) 270 mls @ 270 mls/hr IV Q8H [facility] Last Infusion: 07/07/23 09:55 Dose: Infused Acetaminophen (Ofirmev) 1,000 mg in 100 mls @ 400 mls/hr IV Q6H PRN PRN Reason: Pain, Mild (Pain Scale 1-3) Last Infusion: 07/07/23 09:42 Dose: Infused Levothyroxine Sodium (Levothyroxine Sodium 100 Mcg/5 Ml Vial) 44 mcg IVPUSH DAILY [facility] Last Admin: 07/07/23 09:40 Dose: 44 mcg Patient Own Medication Guanfacine 1 Mg 1 each PO BID [facility] Last Admin: 07/07/23 09:40 Dose: 1 each Ondansetron HCl (Ondansetron Hcl 4 Mg/2 Ml Vial) 4 mg IVPUSH Q8H PRN PRN Reason: Nausea and Vomiting Oxycodone HCl (Oxycodone Hcl Immed Release 5 Mg Tablet) 5 mg PO Q4H PRN PRN Reason: Pain, Moderate(Pain Scale 4-6) Last Admin: 07/06/23 21:26 Dose: 5 mg Pharmacy Consult (Consult Rx Vancomycin Dosing) 1 each MISCELLANE DAILY PRN PRN Reason: Consult order Sodium Chloride (0.9 % Sodium Chloride Flush 3 Ml Syringe) 3 ml IVFLUSH QSHIFT [facility] Last Admin: 07/07/23 09:41 Dose: 3 ml Topiramate (Topiramate 100 Mg Tablet) 200 mg PO BID [facility] Last Admin: 07/07/23 09:41 Dose: 200 mg Home Medications Medication Instructions Recorded Confirmed Last Taken Type clobazam 10 mg tablet 7.5 mg PO DAILY@1500 07/03/23 07/03/23 Unknown History clobazam 10 mg tablet 10 mg PO DAILY 07/03/23 07/03/23 Unknown History clobazam 10 mg tablet 15 mg PO BEDTIME 07/03/23 07/03/23 Unknown History clonidine HCl 0.1 mg tablet 0.1 mg PO BEDTIME 07/03/23 07/03/23 Unknown History divalproex 125 mg capsule,delayed 1,250 mg PO BID 07/03/23 07/03/23 Unknown History release sprinkle (Depakote Sprinkles) guanfacine 1 mg tablet 1 mg PO BID 07/03/23 07/03/23 Unknown History levothyroxine 88 mcg tablet 88 mcg PO DAILY@0630 07/03/23 07/03/23 Unknown History topiramate 100 mg tablet 200 mg PO BID 07/03/23 07/03/23 Unknown History Physical Exam Vital Signs: Vital Signs: Last Vital Signs Temp 97.6 F 07/07/23 03:58 Pulse 96 07/07/23 07:03 Resp 16 07/07/23 07:03 BP 110/52 L 07/07/23 07:03 Pulse Ox 92 07/07/23 07:03 O2 Del Method Nasal Cannula 07/07/23 07:03 O2 Flow Rate 3 07/07/23 07:03 BMI result Body Mass Index 24.6 Neuro: Other: Alert looking around did not particularly make an eye contact. Did not speak and did not follow commands. Arms or legs were flexed. Deep tendon reflexes were absent. Plantars were not elicitable. No abnormal movements were noted. Results Labs 07/07/23 02:51 07/07/23 09:23 Labs: Short CBC 07/07/23 Range/Units 02:51 WBC 4.0 L (4.8-10.8) X10*3/uL Hgb 9.8 L (12.0-16.0) g/dl Hct 31.0 L (37.0-47.0) % Plt Count 86 L D (160-400) X10*3/uL BMP 07/07/23 07/07/23 02:51 09:23 Sodium 141 142 Potassium 3.3 3.5 Chloride 108 107 Carbon Dioxide 23 25 BUN 6 L 5 L Creatinine 0.56 0.51 Calcium 8.6 8.3 L Liver Function 07/07/23 Range/Units 02:51 Total Bilirubin 0.1 (0.0-1.0) mg/dL AST 15 (5-31) U/L ALT 5 (0-31) U/L Alkaline Phosphatase 62 (39-117) U/L Albumin 2.5 L (3.5-5.0) g/dL Microbiology Microbiology Results: Microbiology 07/03/23 04:08 Blood - Venous Blood Culture - Preliminary No growth after 48 hours. 07/03/23 04:03 Blood - Venous Blood Culture - Preliminary No growth after 48 hours. 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 She was stable on present regimen of medicine and was following a neurologist in [facility]. At this time my recommendation is to continue her underlying antiepileptic regimen. If needed, a nasogastric tube could be use for med administration. Fortunately her belly was better and she was doing better compared to yesterday and may not require surgery. (2) Chronic static encephalopathy: Status: Acute Procedures Date of Service Date of Service: 07/07/23
--- NOTE | 2023-07-07 13:14 | MHC.SL.SWA ---
Speech Pathologist Impression: Risk of aspiration, oropharyngeal dysphagia Risk of Aspiration Due to: Neurological Condition History of Pneumonia Reduced Cognition Dysphasia Diet Status: UPGRADE from NPO, start on NDD1 Liquid Consistency and Strategies for Safe Swallow: Liquid Intake Recommendation: Thin Liquid Intake Strategies: Small Sips Liquids by Teaspoon/Sippy Cup Only Solid Food Consistency: Dietary Recommendations: Pureed (NDD1) Additional Modifications to Solid Foods: Recommend UPGRADE from NPO, START on PUREED (NDD1) diet with THIN liquids via TEASPOON or SIPPY CUP. Pills to be crushed in puree. Patient requires total assistance feeding and close monitoring. Administer small bites of food, check oral cavity for clearance and watch for swallow, alternate with sips of liquid to clear any residue before giving more bites. Ensure patient is drinking one sip at a time. Patient must be awake and alert, attending to meal, otherwise tray to be held. Discontinue feeding if pt exhibits any overt s/s of aspiration. Oral Medication Intake: Crushed with Puree Please contact the pharmacy regarding appropriate crushable or liquid drug formulations that are available whenever modified delivery is recommended. Compensatory Strategies and Precautions to be Taken for Safe Swallow: Sitting Upright (90 deg) Small Bites and Sips Alternate Liquids/Solids Rate of Ingestion Change Oral Check Avoid Specific Foods Supervision While Eating and Drinking for Safe Swallow: Total Assistance (1:1) Foods to Avoid: Mixed textures Swallowing Recommended Treatments: Compens. Strategy Educat. Recommendation for Speech: Inpatient Speech Therapy Modified Barium Swallow Study - Inpatient Modified Barium Swallow Study - Outpatient Comment: SECURITY INFRASTRUCTURE ENGINEER will continue to follow during hospitalization to monitor pt's tolerance of PO and to re-assess for potential advancement if/when appropriate. Patient may additionally benefit from instrumental assessment (MBSS) to be done during inpatient stay or on outpatient basis as this is a reported change from patient's baseline. Frequency/Duration: PRN M-F Date Range for Service Req: Timeline to reassess: Lehr Operator Clinican/Clinical Fellow: No Supervisory Statement: I have reviewed and agree with the student/clinical fellow's documentation: N/A Speech Language Pathologist: Clover Ralph M.A., CCC-SECURITY INFRASTRUCTURE ENGINEER
--- NOTE | 2023-07-07 14:57 | HO.PM.IMPN ---
Subjective Subjective Date of Service: 07/07/23 Interval History: seen and examined this morning follow up for medical consultation, abdominal pain, fever patient had episode of urinary retention overnight; episode of fever blood cultures repeated this morning she appears more alert and interactive unable to obtain ROS due to nonverbal status. history obtained from mom at bedside Physical Exam Vital Signs: Vital Signs: Last Vital Signs Temp 97.6 F 07/07/23 03:58 Pulse 96 07/07/23 07:03 Resp 16 07/07/23 07:03 BP 110/52 L 07/07/23 07:03 Pulse Ox 92 07/07/23 07:03 O2 Del Method Nasal Cannula 07/07/23 07:03 O2 Flow Rate 3 07/07/23 07:03 BMI result Body Mass Index 24.6 Const: Other: lying in bed, appears comfortable more alert, looking around nonverbal, unable to assess orientation Nutritional Appearance: average body habitus Resp: Effort & Inspection: normal respiratory effort, no respiratory distress and no use of accessory muscles Auscultation: clear to auscultation bilaterally Cardio: Rate: regular rate GI: Inspection: No distended Palpation (GI): Soft to palpation Neuro: Other: nonverbal Extrem: General: Yes no pedal edema Objective Data Active Medications Acetaminophen (Acetaminophen 325 Mg Tablet) 975 mg PO Q6H PRN PRN Reason: Pain, Mild (Pain Scale 1-3) Last Admin: 07/05/23 12:20 Dose: 325 mg Documented By: YARED Comments: pt only ended up taking one tab Clobazam (Clobazam 10 Mg Tablet) 15 mg PO BEDTIME [facility] Last Admin: 07/06/23 20:07 Dose: 15 mg Documented By: CHINO Clobazam (Clobazam 10 Mg Tablet) 10 mg PO DAILY [facility] Last Admin: 07/07/23 09:41 Dose: 10 mg Documented By: PETER Clobazam (Clobazam 10 Mg Tablet) 5 mg PO DAILY@1500 [facility] Last Admin: 07/06/23 16:16 Dose: 5 mg Documented By: PETER Valproic Acid 1,250 mg/ (Dextrose) 62.5 mls @ 60 mls/hr IV BID [facility] Last Infusion: 07/07/23 11:15 Dose: Infused Documented By: PETER Piperacillin Sod/Tazobactam (Sod 3.375 gm/ Sodium Chloride) 50 mls @ 100 mls/hr IV Q6H [facility] Last Infusion: 07/07/23 12:55 Dose: Infused Documented By: PETER Lactated Ringer's (Lr) 1,000 mls @ 100 mls/hr IVCONT .Q10H [facility] Last Admin: 07/07/23 09:42 Dose: 100 mls/hr Documented By: PETER Vancomycin HCl 1,000 mg/ (Sodium Chloride) 270 mls @ 270 mls/hr IV Q8H [facility] Last Infusion: 07/07/23 09:55 Dose: Infused Documented By: PETER Acetaminophen (Ofirmev) 1,000 mg in 100 mls @ 400 mls/hr IV Q6H PRN PRN Reason: Pain, Mild (Pain Scale 1-3) Last Infusion: 07/07/23 09:42 Dose: Infused Documented By: PETER Levothyroxine Sodium (Levothyroxine Sodium 100 Mcg/5 Ml Vial) 44 mcg IVPUSH DAILY [facility] Last Admin: 07/07/23 09:40 Dose: 44 mcg Documented By: PETER Patient Own Medication Guanfacine 1 Mg 1 each PO BID [facility] Last Admin: 07/07/23 09:40 Dose: 1 each Documented By: PETER Ondansetron HCl (Ondansetron Hcl 4 Mg/2 Ml Vial) 4 mg IVPUSH Q8H PRN PRN Reason: Nausea and Vomiting Oxycodone HCl (Oxycodone Hcl Immed Release 5 Mg Tablet) 5 mg PO Q4H PRN PRN Reason: Pain, Moderate(Pain Scale 4-6) Last Admin: 07/06/23 21:26 Dose: 5 mg Documented By: CHINO Pharmacy Consult (Consult Rx Vancomycin Dosing) 1 each MISCELLANE DAILY PRN PRN Reason: Consult order Sodium Chloride (0.9 % Sodium Chloride Flush 3 Ml Syringe) 3 ml IVFLUSH QSHIFT [facility] Last Admin: 07/07/23 09:41 Dose: 3 ml Documented By: PETER Topiramate (Topiramate 100 Mg Tablet) 200 mg PO BID [facility] Last Admin: 07/07/23 09:41 Dose: 200 mg Documented By: PETER Labs 07/07/23 02:51 07/07/23 09:23 Labs: Laboratory Results - last 24 hr 07/07/23 07/07/23 07/07/23 02:51 09:00 09:23 MCV 99.4 H MCH 31.4 MCHC 31.6 RDW 12.3 Plt Count 86 L D MPV 10.7 Immature Gran % (Auto) 0.3 Neut % (Auto) 60.5 Lymph % (Auto) 24.9 [place] % (Auto) 14.3 H Eos % (Auto) 0.0 Baso % (Auto) 0.0 Lymph # (Auto) 1.0 L [place] # (Auto) 0.6 Eos # (Auto) 0.0 Baso # (Auto) 0.0 Abs Immat Gran (auto) 0.01 Absolute Neuts (auto) 2.4 Absolute Nucleated RBC 0.000 Nucleated RBC % (auto) 0.0 Anion Gap 13 14 Estim Creat Clear Calc 114.2 125.5 Estimated GFR > 60 > 60 Random Glucose 67 68 Lactic Acid 0.9 Calcium 8.6 8.3 L Total Bilirubin 0.1 AST 15 ALT 5 Alkaline Phosphatase 62 C-Reactive Protein 16.46 H Total Protein 5.7 L Albumin 2.5 L Respiratory Panel Knight See Note Adenovirus (Rapid PCR) Not Detected B.pert (TEM-PCR) Not Detected B.parapertussis DNA PCR Not Detected C. pneumoniae DNA (PCR) Not Detected Coronavirus OC43 (PCR) Not Detected Coronavirus HKU1 (PCR) Not Detected Coronavirus 229E (PCR) Not Detected Coronavirus NL63 (PCR) Not Detected Human Metapneumovir PCR Not Detected Influenza A (RT-PCR) Not Detected Influenza B (RT-PCR) Not Detected M. pneumoniae (PCR) Not Detected Parainfluenza 1 (PCR) Not Detected Parainfluenza 2 (PCR) Not Detected Parainfluenza 3 (PCR) Not Detected Parainfluenza 4 (PCR) Not Detected RSV (PCR) Not Detected Entero/Rhino (PCR) Not Detected SARS-CoV-2 RNA (RT-PCR) Not Detected Assessment and Plan (1) Abdominal pain: Status: Acute (2) Pneumonia: Status: Acute Plan 22 year old female with cerebral palsy, Alexandria Gastaut syndrome, autism disorder, hypothryroidism, who is nonverbal and non communicative at baseline admitted to general surgery for management of probable appendicitis with consult placed to hospitalist service for medical management. Medical Unit Secretary is mother, Lucretia, who provides history at bedside. Abdominal pain /inflammatory changes around the appendix and cecum, initially thought due to appendicitis febrile, tachycardic tachypenic, leukocytosis on arrival. low grade fever overnight WBC normalized repeat CT abdomen 07/06 ?infectious or inflammatory bowel disease general surgery following, continue IV Zosyn started on 07/03, no plan for surgery at this time seen by GI - right side colitis and ileitis with fluid collection with significantly elevated CRP - possible crohns, appendicitis mom continues to want watchful waiting/conservative management and avoid intervention/surgery if possible will advance diet slowly follow CRP Dysphagia seen by speech, rec diet possible MBSS Sunday aspiration precautions acute respiratory failure due to pneumonia cxr showing pneumonia, no sepsis continue vanco/zosyn speech/MBSS as above aspiration precautions wean oxygen as tolerated urinary retention straight cath x 1 overnight voiding multiple times today without difficulty Lethargy improving due to underlying infectious process wbc count resolved, urine culture and blood cultures negative LFTs normal on admission on baseline medications ammonia, renal function normal seen by neurology - no further work up necessary hypokalemia k 3.2 due to decreased po intake replace IV follow BMP hyperchloremic metabolic acidosis likely due to fluids NS discontinued resolved, bicarb 22 Nelson Gastaut syndrome well controlled with history of grand mal seizures. continue IV depakote, by mouth clobazam, topamax Per Dr. Montejo at [facility], periopertive management with IV diazepam if needed. [facility] records reviewed if patient unable to take po meds due to lethargy, recommend to place NGT thrombocytopenia chronic. follow CBC Hypothyroidism continue IV synthroid will resume guanfacine centrally acting alpha 2 adrenergic receptor stimulant patient use for tics disorder, Can not be stopped abruptly. Disposition as per General surgery Quality Stroke Does the patient have a stroke diagnosis?: No VTE Prior VTE?: No VTE Risk Level:: Surgical - low VTE Device Contraindication: Treatment Not Indicated VTE Drug Contraindication: Treatment Not Indicated
[2023-07-07] MEDS: cloBAZam 10 MG TABLET 5 MG PO (15:14)
[2023-07-07 15:26] LABS: Vancomycin Random 13.4 mcg/mL (15-20)
--- NOTE | 2023-07-07 16:16 | PC.NURSE ---
Legs swelling and hands swelling present ,AKUA Dong notified,will hold IV fluid per Letitia.
[2023-07-07] MEDS: Albuterol/Iprat 2.5/0.5MG 3 ML AMPUL.NEB INHALE (16:34)
[2023-07-07] MEDS: cloBAZam 10 MG TABLET 15 MG PO (20:34)
[2023-07-07] MEDS: oxyCODONE HCl Immed Release 5 MG TABLET PO (20:53)
[2023-07-08] MEDS: 0.9 % Sodium Chloride Flush 3 ML SYRINGE IVFLUSH ×4 (00:20→23:56)
[2023-07-08] MEDS: Piperacillin Sodium/Tazobactam 3.375 GM in 0.9 % Sodium Chloride 50 ML IV ×5 (00:22→23:56)
[2023-07-08] MEDS: vancomycin HCL 1,000 MG in 0.9 % Sodium Chloride 250 ML 270 MG IV ×3 (00:56→16:37)
[2023-07-08] MEDS: Acetaminophen 1,000 MG/100 ML PIGGYBACK 400 MG IV ×3 (03:47→16:55)
[2023-07-08 04:00] VITALS: BP 108/58; PULSE 88; RESP 18; TEMP 36.6; O2SAT 93
[2023-07-08 04:17] VITALS: RESP 18
[2023-07-08 05:53] LABS: Hematocrit 25.1 % (37.0-47.0); Hemoglobin 7.9 g/dl (12.0-16.0); Mean Corpuscular HGB Conc 31.5 g/dl (31.0-35.0); Mean Corpuscular Hemoglobin 30.9 pg (27.0-33.0); Mean Platelet Volume 10.8 fL (9.4-12.3); Red Blood Count 2.56 X10*6/uL (4.20-5.50); White Blood Count 4.6 X10*3/uL (4.8-10.8)
[2023-07-08 05:54] LABS: Platelet Count 96 X10*3/uL (160-400)
[2023-07-08 06:02] LABS: C Reactive Protein 15.37 mg/dL (< or = 0.50); Creatinine Clr Calc Pharmacy 136.1; Estimated Glomerular Filt Rate > 60
[2023-07-08 07:48] VITALS: BP 109/58; PULSE 84; RESP 16; TEMP 36.1; O2SAT 93
[2023-07-08 08:10] LABS: Anion Gap 12 (12-20)
[2023-07-08 08:14] LABS: Alanine Aminotransferase 5 U/L (0-31); Albumin Level 2.2 g/dL (3.5-5.0); Alkaline Phosphatase 49 U/L (39-117); Aspartate Amino Transferase 12 U/L (5-31); Bilirubin Direct < 0.2 mg/dL (0.0-0.5); Bilirubin Total 0.1 mg/dL (0.0-1.0); Blood Urea Nitrogen 4 mg/dL (9-16); Calcium 8.3 mg/dL (8.4-10.2); Carbon Dioxide 25 mmol/L (22-29); Chloride 109 mmol/L (96-108); Glucose Random 95 mg/dL (60-115); Iron 42 mcg/dL (30-160); Lactate Dehydrogenase 141 U/L (122-220); Percent Iron Saturation 30 % (15-50); Potassium 3.3 mmol/L (3.3-5.1); Sodium 143 mmol/L (135-145); Total Iron Binding Capacity 140 mcg/dL (228-428); Total Protein 5.1 g/dL (6.5-8.0); Unsaturated Iron Binding 98 ug/dL
[2023-07-08 08:25] LABS: Ferritin 222 ng/mL (10-122)
[2023-07-08] MEDS: VALPROIC ACID IV ×2 (09:21→21:06)
[2023-07-08] MEDS: Topiramate 100 MG TABLET 200 MG PO ×2 (09:21→21:15)
[2023-07-08] MEDS: cloBAZam 10 MG TABLET PO (09:21)
[2023-07-08] MEDS: DEXTROSE 5% IV ×2 (09:21→21:06)
[2023-07-08] MEDS: Levothyroxine Sodium 100 MCG/5 ML VIAL 44 MCG IVPUSH (09:21)
--- NOTE | 2023-07-08 09:54 | P.PNIM_ITS ---
Subjective Subjective Date of Service: 07/08/23 Interval History: seen and examined this morning history obtained via mom at bedside as patient is nonverbal patient appears more awake and active this morning passing gas overnight. no fever overnight unable to obtain ROS Physical Exam 2 Vital Signs: Vital Signs: Last Vital Signs Temp 97.0 F 07/08/23 07:48 Pulse 84 07/08/23 07:48 Resp 16 07/08/23 07:48 BP 109/58 L 07/08/23 07:48 Pulse Ox 93 07/08/23 07:48 O2 Del Method Nasal Cannula 07/08/23 07:48 O2 Flow Rate 3 07/08/23 07:48 BMI result Body Mass Index 24.6 Const: Other: looking around, moving upper extremities, trying to pull off oxygen General: alert and awake Nutritional Appearance: average body habitus Resp: Other: intermittent cough Effort & Inspection: normal respiratory effort, able to speak in complete sentences, no respiratory distress and no use of accessory muscles Cardio: Rate: regular rate GI: Other: soft +BS nondistended, appears somewhat uncomfortable to palpation of abdomen Neuro: Other: nonverbal unable to assess Extrem: Other: legs flexed General: Yes no pedal edema Objective Data Active Medications Acetaminophen (Acetaminophen 325 Mg Tablet) 975 mg PO Q6H PRN PRN Reason: Pain, Mild (Pain Scale 1-3) Last Admin: 07/05/23 12:20 Dose: 325 mg Documented By: YARED Comments: pt only ended up taking one tab Albuterol/Ipratropium (Albuterol/Iprat 2.5/0.5mg 3 Ml Ampul.Neb) 3 ml INHALE RQ6H WHILE AWAKE PRN PRN Reason: Shortness of Breath/Wheezing Last Admin: 07/07/23 16:34 Dose: 3 ml Documented By: CHELSEA Clobazam (Clobazam 10 Mg Tablet) 15 mg PO BEDTIME [facility] Last Admin: 07/07/23 20:34 Dose: 15 mg Documented By: HUSAM Clobazam (Clobazam 10 Mg Tablet) 10 mg PO DAILY [facility] Last Admin: 07/08/23 09:21 Dose: 10 mg Documented By: PETER Clobazam (Clobazam 10 Mg Tablet) 5 mg PO DAILY@1500 [facility] Last Admin: 07/07/23 15:14 Dose: 5 mg Documented By: PETER Clonidine HCl (Clonidine Hcl 0.1 Mg Tablet) 0.1 mg PO BEDTIME [facility]; Protocol Valproic Acid 1,250 mg/ (Dextrose) 62.5 mls @ 60 mls/hr IV BID [facility] Last Admin: 07/08/23 09:21 Dose: 60 mls/hr Documented By: PETER Vancomycin HCl 1,000 mg/ (Sodium Chloride) 270 mls @ 270 mls/hr IV Q8H [facility] Last Admin: 07/08/23 09:22 Dose: 270 mls/hr Documented By: PETER Acetaminophen (Ofirmev) 1,000 mg in 100 mls @ 400 mls/hr IV Q6H PRN PRN Reason: Pain, Mild (Pain Scale 1-3) Last Admin: 07/08/23 09:52 Dose: 400 mls/hr Documented By: PETER Piperacillin Sod/Tazobactam (Sod 3.375 gm/ Sodium Chloride) 50 mls @ 100 mls/hr IV Q6H [facility] Last Infusion: 07/08/23 07:00 Dose: Infused Documented By: BRYAN Levothyroxine Sodium (Levothyroxine Sodium 100 Mcg/5 Ml Vial) 44 mcg IVPUSH DAILY [facility] Last Admin: 07/08/23 09:21 Dose: 44 mcg Documented By: PETER Melatonin (Melatonin 3 Mg Tablet) 3 mg PO BEDTIME [facility] Patient Own Medication Guanfacine 1 Mg 1 each PO BID [facility] Last Admin: 07/08/23 09:49 Dose: 1 each Documented By: PETER Ondansetron HCl (Ondansetron Hcl 4 Mg/2 Ml Vial) 4 mg IVPUSH Q8H PRN PRN Reason: Nausea and Vomiting Oxycodone HCl (Oxycodone Hcl Immed Release 5 Mg Tablet) 5 mg PO Q4H PRN PRN Reason: Pain, Moderate(Pain Scale 4-6) Last Admin: 07/07/23 20:53 Dose: 5 mg Documented By: HUSAM Pharmacy Consult (Consult Rx Vancomycin Dosing) 1 each MISCELLANE DAILY PRN PRN Reason: Consult order Sodium Chloride (0.9 % Sodium Chloride Flush 3 Ml Syringe) 3 ml IVFLUSH QSHIFT [facility] Last Admin: 07/08/23 09:49 Dose: 3 ml Documented By: PETER Topiramate (Topiramate 100 Mg Tablet) 200 mg PO BID [facility] Last Admin: 07/08/23 09:21 Dose: 200 mg Documented By: PETER Labs 07/08/23 05:43 07/08/23 05:43 Labs: Laboratory Results - last 24 hr 07/07/23 07/07/23 07/07/23 02:51 09:00 09:23 MCV MCH MCHC RDW Plt Count MPV Absolute Nucleated RBC Nucleated RBC % (auto) Anion Gap 14 Estim Creat Clear Calc 125.5 Estimated GFR > 60 Random Glucose 68 Calcium 8.3 L Iron TIBC % Saturation Unsat Iron Binding Ferritin Total Bilirubin Direct Bilirubin AST ALT Alkaline Phosphatase Lactate Dehydrogenase C-Reactive Protein 16.46 H Total Protein Albumin Random Vancomycin Respiratory Panel Knight See Note Adenovirus (Rapid PCR) Not Detected B.pert (TEM-PCR) Not Detected B.parapertussis DNA PCR Not Detected C. pneumoniae DNA (PCR) Not Detected Coronavirus OC43 (PCR) Not Detected Coronavirus HKU1 (PCR) Not Detected Coronavirus 229E (PCR) Not Detected Coronavirus NL63 (PCR) Not Detected Human Metapneumovir PCR Not Detected Influenza A (RT-PCR) Not Detected Influenza B (RT-PCR) Not Detected M. pneumoniae (PCR) Not Detected Parainfluenza 1 (PCR) Not Detected Parainfluenza 2 (PCR) Not Detected Parainfluenza 3 (PCR) Not Detected Parainfluenza 4 (PCR) Not Detected RSV (PCR) Not Detected Entero/Rhino (PCR) Not Detected SARS-CoV-2 RNA (RT-PCR) Not Detected 07/07/23 07/08/23 15:03 05:43 MCV 98.0 MCH 30.9 MCHC 31.5 RDW 12.0 Plt Count 96 L MPV 10.8 Absolute Nucleated RBC 0.000 Nucleated RBC % (auto) 0.0 Anion Gap 12 Estim Creat Clear Calc 136.1 Estimated GFR > 60 Random Glucose 95 Calcium 8.3 L Iron 42 TIBC 140 L % Saturation 30 Unsat Iron Binding 98 Ferritin 222 H Total Bilirubin 0.1 Direct Bilirubin < 0.2 AST 12 ALT 5 Alkaline Phosphatase 49 Lactate Dehydrogenase 141 C-Reactive Protein 15.37 H Total Protein 5.1 L Albumin 2.2 L Random Vancomycin 13.4 L Respiratory Panel [facility] Adenovirus (Rapid PCR) B.pert (TEM-PCR) B.parapertussis DNA PCR C. pneumoniae DNA (PCR) Coronavirus OC43 (PCR) Coronavirus HKU1 (PCR) Coronavirus 229E (PCR) Coronavirus NL63 (PCR) Human Metapneumovir PCR Influenza A (RT-PCR) Influenza B (RT-PCR) M. pneumoniae (PCR) Parainfluenza 1 (PCR) Parainfluenza 2 (PCR) Parainfluenza 3 (PCR) Parainfluenza 4 (PCR) RSV (PCR) Entero/Rhino (PCR) SARS-CoV-2 RNA (RT-PCR) Microbiology Microbiology Results: Microbiology 07/03/23 04:08 Blood Culture - Final Blood - Venous No growth after 5 days. 07/03/23 04:03 Blood Culture - Final Blood - Venous No growth after 5 days. 07/07/23 02:51 Blood Culture - Preliminary Blood - Venous No growth after 24 hours. 07/07/23 02:50 Blood Culture - Preliminary Blood - Venous No growth after 24 hours. Assessment and Plan (1) Pneumonia: Status: Acute (2) Epilepsy: Status: Acute (3) Abdominal pain: Status: Acute (4) Anemia: Status: Acute Plan 22 year old female with cerebral palsy, Nelson Gastaut syndrome, autism disorder, hypothryroidism, who is nonverbal and non communicative at baseline admitted to general surgery for management of probable appendicitis with consult placed to hospitalist service for medical management. Cold Rolling Supervisor is mother, Lucretia, who provides history at bedside. Abdominal pain /inflammatory changes around the appendix and cecum, initially thought due to appendicitis febrile, tachycardic tachypenic, leukocytosis on arrival WBC normalized repeat CT abdomen 07/06 ?infectious or inflammatory bowel disease general surgery following, continue IV Zosyn started on 07/03, no plan for surgery at this time seen by GI - right side colitis and ileitis with fluid collection with significantly elevated CRP - possible crohns, appendicitis no drainable fluid collection per IR mom continues to want watchful waiting/conservative management and avoid intervention/surgery if possible will advance diet slowly follow CRP plan for repeat CT Sunday acute respiratory failure due to pneumonia cxr showing pneumonia, no sepsis continue vanco/zosyn speech/MBSS as above aspiration precautions wean oxygen as tolerated acute on chronic normocytic anemia no obvious blood loss noted was menstruating on admission, since stopped will initiate anemia workup check stool occult discussed with pt mom, prefers to hold off on blood transfusion for now, will repeat H/H this afternoon, if drops further will transfuse 1U follow cbc closely Dysphagia seen by speech, rec NDD1 diet possible MBSS Sunday aspiration precautions urinary retention straight cath x 1 voiding without difficulty since Lethargy resolved due to underlying infectious process wbc count resolved, urine culture and blood cultures negative LFTs normal on admission ammonia, renal function normal seen by neurology - no further work up necessary hypokalemia replaced and resolved follow BMP hyperchloremic metabolic acidosis likely due to fluids resolved Howes Gastaut syndrome well controlled with history of grand mal seizures continue IV depakote, by mouth clobazam, topamax Per Dr. Montejo at [facility], periopertive management with IV diazepam if needed. [facility] records reviewed if patient unable to take po meds due to lethargy, recommend to place NGT to give scheduled meds; strict adherence to medication regimen necessary to prevent seizures thrombocytopenia chronic follow CBC Hypothyroidism continue IV synthroid will resume guanfacine centrally acting alpha 2 adrenergic receptor stimulant patient use for tics disorder, Can not be stopped abruptly. Disposition as per General surgery Quality Stroke Does the patient have a stroke diagnosis?: No VTE Prior VTE?: No VTE Risk Level:: Surgical - low VTE Device Contraindication: Treatment Not Indicated VTE Drug Contraindication: Treatment Not Indicated
--- NOTE | 2023-07-08 13:13 | PM.PNGS ---
Subjective Subjective Date of Service: 07/08/23 Interval history: According to patient's mother/miner, she is tolerating her pureed diet and is passing flatus. No significant BM. Mother thinks abdominal symptoms are status quo. GI note appreciated Physical Exam Vital Signs: Vital Signs: Last Vital Signs Temp 97.0 F 07/08/23 07:48 Pulse 84 07/08/23 07:48 Resp 16 07/08/23 07:48 BP 109/58 L 07/08/23 07:48 Pulse Ox 93 07/08/23 07:48 O2 Del Method Nasal Cannula 07/08/23 07:48 O2 Flow Rate 3 07/08/23 07:48 BMI result Body Mass Index 24.6 GI: Other: Lower abdomen mild right lower quadrant tenderness soft, minimal distention. No evidence of any guarding, rebound, or rigidity. Again difficult exam secondary to patient's mental handicap status Objective Data Active Medications Acetaminophen (Acetaminophen 325 Mg Tablet) 975 mg PO Q6H PRN PRN Reason: Pain, Mild (Pain Scale 1-3) Last Admin: 07/05/23 12:20 Dose: 325 mg Documented By: YARED Comments: pt only ended up taking one tab Albuterol/Ipratropium (Albuterol/Iprat 2.5/0.5mg 3 Ml Ampul.Neb) 3 ml INHALE RQ6H WHILE AWAKE PRN PRN Reason: Shortness of Breath/Wheezing Last Admin: 07/07/23 16:34 Dose: 3 ml Documented By: CHELSEA Clobazam (Clobazam 10 Mg Tablet) 15 mg PO BEDTIME [facility] Last Admin: 07/07/23 20:34 Dose: 15 mg Documented By: HUSAM Clobazam (Clobazam 10 Mg Tablet) 10 mg PO DAILY [facility] Last Admin: 07/08/23 09:21 Dose: 10 mg Documented By: PETER Clobazam (Clobazam 10 Mg Tablet) 5 mg PO DAILY@1500 [facility] Last Admin: 07/07/23 15:14 Dose: 5 mg Documented By: PETER Clonidine HCl (Clonidine Hcl 0.1 Mg Tablet) 0.1 mg PO BEDTIME [facility]; Protocol Valproic Acid 1,250 mg/ (Dextrose) 62.5 mls @ 60 mls/hr IV BID [facility] Last Infusion: 07/08/23 10:33 Dose: Infused Documented By: PETER Vancomycin HCl 1,000 mg/ (Sodium Chloride) 270 mls @ 270 mls/hr IV Q8H [facility] Last Infusion: 07/08/23 11:05 Dose: Infused Documented By: PETER Acetaminophen (Ofirmev) 1,000 mg in 100 mls @ 400 mls/hr IV Q6H PRN PRN Reason: Pain, Mild (Pain Scale 1-3) Last Infusion: 07/08/23 10:17 Dose: Infused Documented By: PETER Piperacillin Sod/Tazobactam (Sod 3.375 gm/ Sodium Chloride) 50 mls @ 100 mls/hr IV Q6H [facility] Last Admin: 07/08/23 12:23 Dose: 100 mls/hr Documented By: PETER Levothyroxine Sodium (Levothyroxine Sodium 100 Mcg/5 Ml Vial) 44 mcg IVPUSH DAILY [facility] Last Admin: 07/08/23 09:21 Dose: 44 mcg Documented By: PETER Melatonin (Melatonin 3 Mg Tablet) 3 mg PO BEDTIME [facility] Patient Own Medication Guanfacine 1 Mg 1 each PO BID [facility] Last Admin: 07/08/23 09:49 Dose: 1 each Documented By: PETER Ondansetron HCl (Ondansetron Hcl 4 Mg/2 Ml Vial) 4 mg IVPUSH Q8H PRN PRN Reason: Nausea and Vomiting Oxycodone HCl (Oxycodone Hcl Immed Release 5 Mg Tablet) 5 mg PO Q4H PRN PRN Reason: Pain, Moderate(Pain Scale 4-6) Last Admin: 07/07/23 20:53 Dose: 5 mg Documented By: HUSAM Pharmacy Consult (Consult Rx Vancomycin Dosing) 1 each MISCELLANE DAILY PRN PRN Reason: Consult order Sodium Chloride (0.9 % Sodium Chloride Flush 3 Ml Syringe) 3 ml IVFLUSH QSHIFT [facility] Last Admin: 07/08/23 09:49 Dose: 3 ml Documented By: PETER Topiramate (Topiramate 100 Mg Tablet) 200 mg PO BID [facility] Last Admin: 07/08/23 09:21 Dose: 200 mg Documented By: PETER Labs 07/08/23 05:43 07/08/23 05:43 Labs: Laboratory Results - last 24 hr 07/07/23 07/08/23 15:03 05:43 MCV 98.0 MCH 30.9 MCHC 31.5 RDW 12.0 Plt Count 96 L MPV 10.8 Absolute Nucleated RBC 0.000 Nucleated RBC % (auto) 0.0 Anion Gap 12 Estim Creat Clear Calc 136.1 Estimated GFR > 60 Random Glucose 95 Calcium 8.3 L Iron 42 TIBC 140 L % Saturation 30 Unsat Iron Binding 98 Ferritin 222 H Total Bilirubin 0.1 Direct Bilirubin < 0.2 AST 12 ALT 5 Alkaline Phosphatase 49 Lactate Dehydrogenase 141 C-Reactive Protein 15.37 H Total Protein 5.1 L Albumin 2.2 L Random Vancomycin 13.4 L Microbiology Microbiology Results: Microbiology 07/03/23 04:08 Blood Culture - Final Blood - Venous No growth after 5 days. 07/03/23 04:03 Blood Culture - Final Blood - Venous No growth after 5 days. 07/07/23 02:51 Blood Culture - Preliminary Blood - Venous No growth after 24 hours. 07/07/23 02:50 Blood Culture - Preliminary Blood - Venous No growth after 24 hours. Procedures Date of Service Date of Service: 07/08/23 Progress Note: A&P Assessment and plan (1) Colitis: Status: Acute (2) Chronic static encephalopathy: Status: Acute (3) Epilepsy: Status: Acute (4) Abdominal pain: Status: Acute Plan Continue current plan. GI will evaluate tomorrow for possible colonoscopy or IV steroids. Time Spent With Patient Time: Total time managing care of this patient today ____ minutes. Quality Stroke Does the patient have a stroke diagnosis?: No VTE Prior VTE?: No VTE Risk Level:: Surgical - low VTE Device Contraindication: Treatment Not Indicated VTE Drug Contraindication: Treatment Not Indicated
[2023-07-08] MEDS: cloBAZam 10 MG TABLET 5 MG PO (14:48)
[2023-07-08 15:27] LABS: Immature Retic Fraction 17.5 % (3.0-15.9); Retic HGB Equivalent 29.2 pg (30.0-35.0); Reticulocyte Percent 0.7 % (0.5-1.8); Reticulocytes Absolute 0.021 X10*6/uL (0.026-0.095)
[2023-07-08 15:36] VITALS: BP 118/55; PULSE 84; RESP 16; TEMP 36.2; O2SAT 94
[2023-07-08 15:37] LABS: INTERNATIONAL NORM RATIO 1.3 (0.9-1.1); Prothrombin Time 16.3 SEC (11.1-13.3)
[2023-07-08 15:45] LABS: Hematocrit 29.7 % (37.0-47.0); Hemoglobin 9.6 g/dl (12.0-16.0)
--- NOTE | 2023-07-08 16:18 | PC.NURSE ---
HH 9.6 29.7 PA Letitia Arias notified
[2023-07-08 16:25] LABS: Folate 10.2 ng/mL (> or = 4.0); Vitamin B12 > 2000 pg/mL (200-900)
[2023-07-08 19:51] VITALS: BP 105/51; PULSE 81; RESP 19; TEMP 36.2; O2SAT 98
[2023-07-08] MEDS: cloNIDine HCL 0.1 MG TABLET PO (21:15)
[2023-07-08] MEDS: Melatonin 3 MG TABLET PO (21:15)
[2023-07-08] MEDS: cloBAZam 10 MG TABLET 15 MG PO (21:16)
[2023-07-08 23:14] LABS: Haptoglobin 302 MG/DL ((30-200))
[2023-07-09] VITALS (7 sets, daily range): BP systolic 86–124; BP diastolic 48–62; PULSE 50–57; RESP 14–18; TEMP 36.1–36.4; O2SAT 66–97; BMI 24.6
[2023-07-09] MEDS: Acetaminophen 1,000 MG/100 ML PIGGYBACK 400 MG IV ×3 (00:05→22:30)
[2023-07-09] MEDS: vancomycin HCL 1,000 MG in 0.9 % Sodium Chloride 250 ML 270 MG IV ×2 (00:29→10:15)
[2023-07-09] MEDS: Piperacillin Sodium/Tazobactam 3.375 GM in 0.9 % Sodium Chloride 50 ML IV ×4 (05:34→23:50)
[2023-07-09 06:27] LABS: Baso%MD 0.2 %; Eos%MD 0.4 %; IG%MD 0.7 %; Mean Corpuscular HGB Conc 32.1 g/dl (31.0-35.0); Mean Corpuscular Hemoglobin 31.7 pg (27.0-33.0); Mean Corpuscular Volume 98.6 fL (80.0-98.0); Mean Platelet Volume 10.5 fL (9.4-12.3); Mono%MD 9.2 %; NRBC Pct Auto 0.7 /100WBC (0.0-0.2); Neut%MD 51.5 %; Platelet Count 136 X10*3/uL (160-400); Red Blood Count 2.84 X10*6/uL (4.20-5.50); Red Cell Distribution Width 12.4 % (11.0-16.0); White Blood Count 4.6 X10*3/uL (4.8-10.8)
[2023-07-09 06:37] LABS: C Reactive Protein 10.55 mg/dL (< or = 0.50); Creatinine Clr Calc Pharmacy 142.2; Estimated Glomerular Filt Rate > 60
[2023-07-09 07:35] LABS: Band Neutrophils Percent 4 % (3-5); Eosinophils Percent Manual 1 % (0-4); Lymphocytes Absolute Manual 1.7 X10*3/uL (1.2-4.9); Lymphocytes Percent Manual 37 % (20-40); Monocytes Absolute Manual 0.3 X10*3/uL (0.1-1.2); Monocytes Percent Manual 6 % (2-11); Neutrophils Absolute Manual 2.6 X10*3/uL (2.0-8.3); Neutrophils Percent Manual 52 % (45-73)
[2023-07-09 07:38] LABS: Hypochromasia 1+ (5-14) /OIF; Macrocytosis 1+ (5-14) /OIF; Platelet Estimate SLIGHTLY DECREASED (NORMAL); RBC Morphology NOTED; Toxic Vacuolation PRESENT
[2023-07-09 07:39] LABS: Platelet Morphology Comment NORMAL
[2023-07-09] MEDS: Levothyroxine Sodium 100 MCG/5 ML VIAL 44 MCG IVPUSH (08:27)
[2023-07-09] MEDS: DEXTROSE 5% IV ×2 (08:27→22:31)
[2023-07-09] MEDS: VALPROIC ACID IV ×2 (08:27→22:31)
[2023-07-09] MEDS: 0.9 % Sodium Chloride Flush 3 ML SYRINGE IVFLUSH ×3 (08:38→21:11)
--- NOTE | 2023-07-09 09:02 | PM.PNGS ---
Subjective Subjective Date of Service: 07/09/23 <Peri Rodríguez PA-C - Last Filed: 07/09/23 09:07> 07/09/23 <Ronny Silverman MD - Last Filed: 07/09/23 16:02> Interval history: Mom feels like she is improving, more alert over the weekend and coloring has improved. Tolerating pureed diet and had smear of BM this morning. <Peri Rodríguez PA-C - Last Filed: 07/09/23 09:07> Physical Exam Vital Signs: Vital Signs: Last Vital Signs Temp 97.6 F 07/09/23 07:14 Pulse 52 07/09/23 07:14 Resp 14 07/09/23 07:14 BP 106/51 L 07/09/23 07:14 Pulse Ox 96 07/09/23 07:14 O2 Del Method Nasal Cannula 07/09/23 07:14 O2 Flow Rate 3 07/09/23 07:14 BMI result Body Mass Index 24.6 <Peri Rodríguez PA-C - Last Filed: 07/09/23 09:07> Const: General: comfortable, no acute distress and alert <Peri Rodríguez PA-C - Last Filed: 07/09/23 09:07> Resp: Effort & Inspection: normal respiratory effort <Peri Rodríguez PA-C - Last Filed: 07/09/23 09:07> GI: Other: ?RLQ tenderness- patient trying to push away hand during palpation of area <Peri Rodríguez PA-C - Last Filed: 07/09/23 09:07> Inspection: No distended <Peri Rodríguez PA-C - Last Filed: 07/09/23 09:07> Palpation (GI): Soft to palpation, no guarding and not rigid <BERNABE Callaway Last Filed: 07/09/23 09:07> Skin: General skin exam: no rashes or lesions noted <BERNABE Callaway Last Filed: 07/09/23 09:07> Objective Data Active Medications Acetaminophen (Acetaminophen 325 Mg Tablet) 975 mg PO Q6H PRN PRN Reason: Pain, Mild (Pain Scale 1-3) Last Admin: 07/05/23 12:20 Dose: 325 mg Documented By: YARED Comments: pt only ended up taking one tab Albuterol/Ipratropium (Albuterol/Iprat 2.5/0.5mg 3 Ml Ampul.Neb) 3 ml INHALE RQ6H WHILE AWAKE PRN PRN Reason: Shortness of Breath/Wheezing Last Admin: 07/07/23 16:34 Dose: 3 ml Documented By: CHELSEA Clobazam (Clobazam 10 Mg Tablet) 15 mg PO BEDTIME [facility] Last Admin: 07/08/23 21:16 Dose: 15 mg Documented By: HUSAM Clobazam (Clobazam 10 Mg Tablet) 10 mg PO DAILY [facility] Last Admin: 07/08/23 09:21 Dose: 10 mg Documented By: PETER Clobazam (Clobazam 10 Mg Tablet) 5 mg PO DAILY@1500 [facility] Last Admin: 07/08/23 14:48 Dose: 5 mg Documented By: PETER Clonidine HCl (Clonidine Hcl 0.1 Mg Tablet) 0.1 mg PO BEDTIME [facility]; Protocol Last Admin: 07/08/23 21:15 Dose: 0.1 mg Documented By: HUSAM Valproic Acid 1,250 mg/ (Dextrose) 62.5 mls @ 60 mls/hr IV BID [facility] Last Admin: 07/09/23 08:27 Dose: 60 mls/hr Documented By: COLTON Vancomycin HCl 1,000 mg/ (Sodium Chloride) 270 mls @ 270 mls/hr IV Q8H [facility] Last Infusion: 07/09/23 01:42 Dose: Infused Documented By: JAYSON Acetaminophen (Ofirmev) 1,000 mg in 100 mls @ 400 mls/hr IV Q6H PRN PRN Reason: Pain, Mild (Pain Scale 1-3) Last Infusion: 07/09/23 00:28 Dose: Infused Documented By: JAYSON Piperacillin Sod/Tazobactam (Sod 3.375 gm/ Sodium Chloride) 50 mls @ 100 mls/hr IV Q6H [facility] Last Infusion: 07/09/23 06:09 Dose: Infused Documented By: JAYSON Levothyroxine Sodium (Levothyroxine Sodium 100 Mcg/5 Ml Vial) 44 mcg IVPUSH DAILY [facility] Last Admin: 07/09/23 08:27 Dose: 44 mcg Documented By: COLTON Melatonin (Melatonin 3 Mg Tablet) 3 mg PO BEDTIME [facility] Last Admin: 07/08/23 21:15 Dose: 3 mg Documented By: HUSAM Patient Own Medication Guanfacine 1 Mg 1 each PO BID [facility] Last Admin: 07/08/23 21:15 Dose: 1 each Documented By: HUSAM Ondansetron HCl (Ondansetron Hcl 4 Mg/2 Ml Vial) 4 mg IVPUSH Q8H PRN PRN Reason: Nausea and Vomiting Oxycodone HCl (Oxycodone Hcl Immed Release 5 Mg Tablet) 5 mg PO Q4H PRN PRN Reason: Pain, Moderate(Pain Scale 4-6) Last Admin: 07/07/23 20:53 Dose: 5 mg Documented By: HUSAM Pharmacy Consult (Consult Rx Vancomycin Dosing) 1 each MISCELLANE DAILY PRN PRN Reason: Consult order Sodium Chloride (0.9 % Sodium Chloride Flush 3 Ml Syringe) 3 ml IVFLUSH QSHIFT [facility] Last Admin: 07/09/23 08:38 Dose: 3 ml Documented By: COLTON Topiramate (Topiramate 100 Mg Tablet) 200 mg PO BID [facility] Last Admin: 07/08/23 21:15 Dose: 200 mg Documented By: HUSAM <Peri Rodríguez PA-C - Last Filed: 07/09/23 09:07> Labs CBC & Chem 7: 07/09/23 05:56 07/09/23 05:56 <Peri Rodríguez PA-C - Last Filed: 07/09/23 09:07> Labs: Laboratory Results - last 24 hr 07/08/23 07/09/23 15:18 05:56 MCV 98.6 H MCH 31.7 MCHC 32.1 RDW 12.4 Plt Count 136 L D MPV 10.5 Absolute Nucleated RBC 0.030 H Nucleated RBC % (auto) 0.7 H Neutrophils % (Manual) 52 Band Neutrophils % 4 Lymphocytes % (Manual) 37 Monocytes % (Manual) 6 Eosinophils % (Manual) 1 Abs Neuts (Manual) 2.6 Lymphocytes # (Manual) 1.7 Monocytes # (Manual) 0.3 Toxic Vacuolation PRESENT Platelet Estimate SLIGHTLY DECREASED Plt Morphology Comment NORMAL RBC Morphology NOTED Hypochromasia 1+ (5-14) Macrocytosis 1+ (5-14) Absolute Retic 0.021 L Percent Retic 0.7 Immature Retic Fraction 17.5 H Retic Hgb Equivalent 29.2 L Haptoglobin 302 H PT 16.3 H INR 1.3 H Estim Creat Clear Calc 142.2 Estimated GFR > 60 C-Reactive Protein 10.55 H Vitamin B12 > 2000 H Folate 10.2 Random Vancomycin 15.0 Blood Type O Positive Antibody Screen NEGATIVE <Peri Rodríguez PA-C - Last Filed: 07/09/23 09:07> Microbiology Microbiology Results: Microbiology 07/07/23 02:51 Blood Culture - Preliminary Blood - Venous No growth after 48 hours. 07/07/23 02:50 Blood Culture - Preliminary Blood - Venous No growth after 48 hours. 07/03/23 04:08 Blood Culture - Final Blood - Venous No growth after 5 days. 07/03/23 04:03 Blood Culture - Final Blood - Venous No growth after 5 days. <Peri Rodríguez PA-C - Last Filed: 07/09/23 09:07> Procedures Date of Service Date of Service: 07/09/23 <Peri Rodríguez PA-C - Last Filed: 07/09/23 09:07> 07/09/23 <Ronny Silverman MD - Last Filed: 07/09/23 16:02> Progress Note: A&P Assessment and plan (1) Colitis: Status: Acute <Peri Rodríguez PA-C - Last Filed: 07/09/23 09:07> Assessment and Plan: No events over the weekend Tolerating pureed diet Abdomen soft and benign Patient seems more alert Follow-up CT scan ordered Patient clinically looks well and improving Seen and examined independently <Ronny Silverman MD - Last Filed: 07/09/23 16:02> (2) Pneumonia: Status: Acute <Peri Rodríguez PA-C - Last Filed: 07/09/23 09:07> Assessment and Plan: Mom would like repeat CT scan to ensure improvement although clinically she seems to be improving. CRP markedly improved this morning. Cont current plan with supportive treatment of IV abx, plan for repeat CT scan. GI following. Appreciate input. MBSS this morning for further swallow eval. <Peri Rodríguez PA-C - Last Filed: 07/09/23 09:07> Time Spent With Patient Time: Total time managing care of this patient today ____ minutes. <Peri Rodríguez PA-C - Last Filed: 07/09/23 09:07> Quality Stroke Does the patient have a stroke diagnosis?: No <Peri Rodríguez PA-C - Last Filed: 07/09/23 09:07> VTE Prior VTE?: No <Peri Rodríguez PA-C - Last Filed: 07/09/23 09:07> VTE Risk Level:: Surgical - low <Peri Rodríguez PA-C - Last Filed: 07/09/23 09:07> VTE Device Contraindication: Treatment Not Indicated <Peri Rodríguez PA-C - Last Filed: 07/09/23 09:07> VTE Drug Contraindication: Treatment Not Indicated <Peri Rodríguez PA-C - Last Filed: 07/09/23 09:07>
--- NOTE | 2023-07-09 09:27 | MHC.SLORD ---
Speech Language Pathology Order Status: MBSS is scheduled for 1:45pm today. PA notified.
[2023-07-09] MEDS: Topiramate 100 MG TABLET 200 MG PO ×2 (10:15→21:11)
[2023-07-09] MEDS: cloBAZam 10 MG TABLET PO (10:15)
[2023-07-09] MEDS: iohexoL 350 MG/ML 75 ML INFUS..BTL 85 ML IV (10:24)
--- NOTE | 2023-07-09 10:47 | PC.NURSE ---
Attempted to patient of O2 NC. Within minutes of O2 being removed patient started coughing. O2 monitor reading 60-70% RA. O2 placed back on patient at 3L, coughing stopped and O2 increased to 94%. Dr. Albert made aware. Plan to leave O2 on at this time. Patients mother at bedside and agreeable to plan. All needs met.
--- NOTE | 2023-07-09 12:00 | HO.PM.IMPN ---
Subjective Subjective Date of Service: 07/09/23 Interval History: Patient is resting in bed comfortably, noncommunicative Mother at bedside informs that patient slept well no acute issues overnight, is constipated noted to have smearing, no fevers ,vitals stable overnight, requiring 2 L of oxygen with stable oxygenation. Review of Systems Unable to obtain due to mental status. Physical Exam Vital Signs: Vital Signs: Last Vital Signs Temp 97.6 F 07/09/23 07:14 Pulse 52 07/09/23 07:14 Resp 14 07/09/23 07:14 BP 106/51 L 07/09/23 07:14 Pulse Ox 94 07/09/23 10:30 O2 Del Method Nasal Cannula 07/09/23 10:30 O2 Flow Rate 3 07/09/23 10:30 BMI result Body Mass Index 24.6 Const: Other: General resting comfortably CVS regular rate rhythm Lungs normal respiratory effort, clear to auscultation Abdomen soft to palpation, bowel sounds audible Extremities no edema Neuro moving all 4 extremities. Objective Data Active Medications Acetaminophen (Acetaminophen 325 Mg Tablet) 975 mg PO Q6H PRN PRN Reason: Pain, Mild (Pain Scale 1-3) Last Admin: 07/05/23 12:20 Dose: 325 mg Documented By: YARED Comments: pt only ended up taking one tab Albuterol/Ipratropium (Albuterol/Iprat 2.5/0.5mg 3 Ml Ampul.Neb) 3 ml INHALE RQ6H WHILE AWAKE PRN PRN Reason: Shortness of Breath/Wheezing Last Admin: 07/07/23 16:34 Dose: 3 ml Documented By: CHELSEA Clobazam (Clobazam 10 Mg Tablet) 15 mg PO BEDTIME [facility] Last Admin: 07/08/23 21:16 Dose: 15 mg Documented By: HUSAM Clobazam (Clobazam 10 Mg Tablet) 10 mg PO DAILY [facility] Last Admin: 07/09/23 10:15 Dose: 10 mg Documented By: COLTON Comments: given late due to pt too drowsy at time due Clobazam (Clobazam 10 Mg Tablet) 5 mg PO DAILY@1500 [facility] Last Admin: 07/08/23 14:48 Dose: 5 mg Documented By: PETER Clonidine HCl (Clonidine Hcl 0.1 Mg Tablet) 0.1 mg PO BEDTIME JULIO CESAR; Protocol Last Admin: 07/08/23 21:15 Dose: 0.1 mg Documented By: HUSAM Valproic Acid 1,250 mg/ (Dextrose) 62.5 mls @ 60 mls/hr IV BID [facility] Last Infusion: 07/09/23 09:36 Dose: Infused Documented By: COLTON Vancomycin HCl 1,000 mg/ (Sodium Chloride) 270 mls @ 270 mls/hr IV Q8H JULIO CESAR Last Infusion: 07/09/23 11:40 Dose: Infused Documented By: COLTON Acetaminophen (Ofirmev) 1,000 mg in 100 mls @ 400 mls/hr IV Q6H PRN PRN Reason: Pain, Mild (Pain Scale 1-3) Last Infusion: 07/09/23 00:28 Dose: Infused Documented By: JAYSON Piperacillin Sod/Tazobactam (Sod 3.375 gm/ Sodium Chloride) 50 mls @ 100 mls/hr IV Q6H [facility] Last Admin: 07/09/23 11:36 Dose: 100 mls/hr Documented By: COLTON Levothyroxine Sodium (Levothyroxine Sodium 100 Mcg/5 Ml Vial) 44 mcg IVPUSH DAILY [facility] Last Admin: 07/09/23 08:27 Dose: 44 mcg Documented By: COLTON Melatonin (Melatonin 3 Mg Tablet) 3 mg PO BEDTIME [facility] Last Admin: 07/08/23 21:15 Dose: 3 mg Documented By: HUSAM Patient Own Medication Guanfacine 1 Mg 1 each PO BID [facility] Last Admin: 07/09/23 10:15 Dose: 1 each Documented By: COLTON Comments: given late due to pt too drowsy at time due Ondansetron HCl (Ondansetron Hcl 4 Mg/2 Ml Vial) 4 mg IVPUSH Q8H PRN PRN Reason: Nausea and Vomiting Oxycodone HCl (Oxycodone Hcl Immed Release 5 Mg Tablet) 5 mg PO Q4H PRN PRN Reason: Pain, Moderate(Pain Scale 4-6) Last Admin: 07/07/23 20:53 Dose: 5 mg Documented By: HUSAM Pharmacy Consult (Consult Rx Vancomycin Dosing) 1 each MISCELLANE DAILY PRN PRN Reason: Consult order Sodium Chloride (0.9 % Sodium Chloride Flush 3 Ml Syringe) 3 ml IVFLUSH QSHIFT [facility] Last Admin: 07/09/23 08:38 Dose: 3 ml Documented By: COLTON Topiramate (Topiramate 100 Mg Tablet) 200 mg PO BID [facility] Last Admin: 07/09/23 10:15 Dose: 200 mg Documented By: COLTON Comments: given late due to pt too drowsy at time due Labs 07/09/23 05:56 07/09/23 05:56 Labs: Laboratory Results - last 24 hr 07/08/23 07/09/23 15:18 05:56 MCV 98.6 H MCH 31.7 MCHC 32.1 RDW 12.4 Plt Count 136 L D MPV 10.5 Absolute Nucleated RBC 0.030 H Nucleated RBC % (auto) 0.7 H Neutrophils % (Manual) 52 Band Neutrophils % 4 Lymphocytes % (Manual) 37 Monocytes % (Manual) 6 Eosinophils % (Manual) 1 Abs Neuts (Manual) 2.6 Lymphocytes # (Manual) 1.7 Monocytes # (Manual) 0.3 Toxic Vacuolation PRESENT Platelet Estimate SLIGHTLY DECREASED Plt Morphology Comment NORMAL RBC Morphology NOTED Hypochromasia 1+ (5-14) Macrocytosis 1+ (5-14) Absolute Retic 0.021 L Percent Retic 0.7 Immature Retic Fraction 17.5 H Retic Hgb Equivalent 29.2 L Haptoglobin 302 H PT 16.3 H INR 1.3 H Estim Creat Clear Calc 142.2 Estimated GFR > 60 C-Reactive Protein 10.55 H Vitamin B12 > 2000 H Folate 10.2 Random Vancomycin 15.0 Blood Type O Positive Antibody Screen NEGATIVE Microbiology Microbiology Results: Microbiology 07/07/23 02:51 Blood Culture - Preliminary Blood - Venous No growth after 48 hours. 07/07/23 02:50 Blood Culture - Preliminary Blood - Venous No growth after 48 hours. Assessment and Plan (1) Pneumonia: Status: Acute (2) Epilepsy: Status: Acute (3) Abdominal pain: Status: Acute (4) Anemia: Status: Acute Plan 22 year old female with cerebral palsy, Nelson Gastaut syndrome, autism disorder, hypothryroidism, who is nonverbal and non communicative at baseline admitted to general surgery for management of probable appendicitis with consult placed to hospitalist service for medical management. Financial Services Director is mother, Lucretia, who provides history at bedside. Abdominal pain /inflammatory changes around the appendix and cecum, initially thought due to appendicitis febrile, tachycardic tachypenic, leukocytosis on arrival WBC normalized, blood cultures x2 negative Clinically improved, no fevers, CRP trending down repeat CT abdomen 07/06 ?infectious or inflammatory bowel disease general surgery following, continue IV Zosyn started on 07/03, no plan for surgery at this time seen by GI - right side colitis and ileitis with fluid collection with significantly elevated CRP - possible crohns, appendicitis no drainable fluid collection per IR mom continues to want watchful waiting/conservative management and avoid intervention/surgery if possible On regular diet waiting for MBS study today due to concern for dysphagia Being followed by General surgery repeat CT abdomen and pelvis obtained report pending. acute respiratory failure due to pneumonia cxr showing pneumonia, no sepsis on vanco/zosyn MBSS scheduled for today aspiration precautions wean oxygen as tolerated /will try out of bed to chair acute on chronic normocytic anemia Likely due to irregular periods stool occult test pending Iron, B12 and folate are within normal range Repeat H&H stable , above transfusion threshold. Dysphagia seen by speech, rec NDD1 diet MBSS today, continue aspiration precautions urinary retention straight cath x 1 voiding without difficulty since , will DC bladder scan Lethargy resolved due to underlying infectious process wbc count resolved, urine culture and blood cultures negative LFTs normal on admission ammonia, renal function normal seen by neurology - no further work up necessary hypokalemia replaced and resolved follow BMP hyperchloremic metabolic acidosis likely due to fluids resolved Lathrop Gastaut syndrome well controlled with history of grand mal seizures continue IV depakote, by mouth clobazam, topamax Per Dr. Montejo at [facility], periopertive management with IV diazepam if needed. [facility] [place] if patient unable to take po meds due to lethargy, recommend to place NGT to give scheduled meds; strict adherence to medication regimen necessary to prevent seizures thrombocytopenia chronic follow CBC Hypothyroidism continue IV synthroid, transition to by mouth after workup for dysphagia completed will resume guanfacine centrally acting alpha 2 adrenergic receptor stimulant patient use for tics disorder, Can not be stopped abruptly. Disposition as per General surgery Quality Stroke Does the patient have a stroke diagnosis?: No VTE Prior VTE?: No VTE Risk Level:: Surgical - low VTE Device Contraindication: Treatment Not Indicated VTE Drug Contraindication: Treatment Not Indicated
--- NOTE | 2023-07-09 14:43 | MHC.CM.PN ---
EMR REVIEWED AND PER MD ROUNDS, PT NOT MEDICALLY CLEARED FOR DC (MBSS PENDING) CM WILL CONTINUE TO FOLLOW FOR ANY CHANGE IN DC NEEDS/PLAN
--- NOTE | 2023-07-09 15:09 | MHC.CLN ---
NUTRITION ADDED MAGIC CUP BID TO PROMOTE NUTRITIONAL INTAKE. SUPPLEMENT PROVIDES 580 KCALS, 18 G PROTEIN.
[2023-07-09 15:27] LABS: Vancomycin Random 22.3 mcg/mL (15-20)
--- NOTE | 2023-07-09 15:38 | HE.PHANOTE ---
RE VANCO SCR STABLE STILL AT 0.45 TODAY. VANCO TROUGH TODAY IS 22.3. HOLDING DOSE UNTIL 07/10 @0800 AND CHANGING TO 1250 Q12 WITH NEXT LEVEL 07/10 @1800 TO ENSURE SAFETY AND EFFICACY.
--- NOTE | 2023-07-09 16:00 | P.EN_ITS ---
Event Note Date of Service: 07/11/23 Event Note: Seen on afternoon rounds The mother says that she thinks that the patient continues to improve She does not seem to have significant abdominal discomfort She is tolerating oral intake I have reviewed the follow-up CT scan - the inflammatory changes seemed to have improved although there is still this fluid collection in the area that seems to be free fluid - no official report yet She has had significant clinical improvement so we will continue with current ca re The mother understands the above and is comfortable with the plan Swallow study for question of aspiration Time Spent With Patient Time: Total time managing care of this patient today ____ minutes.
[2023-07-09] MEDS: cloBAZam 10 MG TABLET 5 MG PO (16:17)
--- NOTE | 2023-07-09 17:19 | MHC.SL.IMP ---
Date of Plan of Treatment: 07/09/23 Onset of Symptoms/Illness: 07/06/23 Date Treatment Started: 07/09/23 Admitting Diagnosis: (1) Pneumonia (2) Epilepsy (3) Abdominal pain (4) Anemia Primary Speech & Language Diagnosis: R13.12 Oropharyngeal Phase Dysphagia Reason for Today's Visit: 05208 Modified Barium Swallow Study Pre-evaluation Dietary Consistencies: Pureed (NDD1) Pre-evaluation Liquid Consistency: Thin Pre-evaluation Medication Administration: Crushed with Puree Medical History: Modified Barium Swallow Study Fluoroscopic Evaluation of Swallowing Function CPT Code 33795 Evaluation Year: 2023 Reason for Study: New onset difficulty with liquids Referring Physician: Letitia FATIMA Evaluating Clinician: Clover Ralph MA, CCC-DESIGNER WRITER Study Number: 1 Patient Name: Tray Pitts Status: Inpatient, Stretcher Age: 22 Gender: Female Medical History Autism, Cerebral Palsy, Nelson Gastaut Syndrome Current (pre-evaluation) Intake/Diet: Route: PO Diet Grade: Puree Liquid Consistencies: Thin Pre-Study Functional Oral Intake Scale (FOIS): 5- Total oral intake of multiple consistencies requiring special preparation SUBJECTIVE: Patient is a 22 year old female with cerebral palsy, Nelson Gastaut syndrome, and autism, admitted for workup of fever and abdominal pain. She is followed by General Surgery and G.I. for possible appendicitis or Crohn?s disease. Patient?s mother/public safety police, Lucretia, expressed she wants watchful waiting/conservative management and to avoid intervention/surgery if possible. Patient's chest x-ray 07/05 showed, Patchy opacity right middle lobe suspicious for developing infiltrate. Findings are slightly more prominent than 07/03/2023. Patient was being treated for pneumonia additionally and is on 2 L oxygen via nasal cannula at the time of this exam. Patient's mother/public safety police, Lucretia, also reported patient was choking and coughing when eating and on her own secretions. However, she believes this was because of her state of mentation at the time, as she was ?tired and out of it.? Patient is now more awake, active, and responsive and has clinically improved. She is nonverbal at baseline. Lucretia reports that at home patient eats food which is soft, moist, and cut up in the smallest pieces. Per Lucretia, patient is even able to eat pizza if it is not too dry. She drinks from a sippy cup. She reports that a few days ago, patient had intermittent episodes of coughing when drinking, but this has since resolved. Oral Motor Exam Oral-Facial Teeth Characteristics: Jumbled Tongue Size: Normal Food and Liquid Trials: Oral Impairment: Lip Closure: Did not test Oral Impairment: Tongue Control During Bolus Hold: Did not test Oral Impairment: Bolus Preparation/Mastication: 2=Disorganized chewing/mashing with solid pieces of bolus Oral Impairment: Bolus Transport/Lingual Motion: 3=Repetitive/disorganized tongue motion Oral Impairment: Oral Residue: 2=Residue collection on oral structures Oral Impairment:Initiation of Pharyngeal Swallow: 3=Bolus head in pyriforms Pharyngeal Impairment: Soft Palate Elevation: 0=No bolus between soft palate (SP)/pharyngeal wall (PW) Pharyngeal Impairment: Laryngeal Elevation: 2=Minimal superior movement of thyroid cartilage (see description) Pharyngeal Impairment: Anterior Hyoid Excursion: 1=Partial anterior movement Pharyngeal Impairment: Epiglottic Movement: 1=Partial inversion Pharyngeal Impairment: Laryngeal Vestibular Closure:: 0=Complete: no air/contrast in laryngeal vestibule Pharyngeal Impairment: Pharyngeal Stripping Wave: 1=Present: diminished Pharyngeal Impairment: Pharyngeal Contraction: Did not test Pharyngeal Impairment: Pharyngoesophageal Segment Openin=Complete distension and complete duration: no obstruction of flow Pharyngeal Impairment: Tongue Base (TB) Retraction: 1=Trace column of contrast/air between TB and posterior PW Pharyngeal Impairment: Pharyngeal Residue: 2=Collection of residue within or on pharyngeal structures Pharyngeal Impairment: Esophageal Clearance Upright Position: Did not test Impressions and Recommendations OBJECTIVE: Time-out: performed at 15:00 Evaluation Start: 14:45; Stop: 14:50 Patient Positioning: Seated 70-90 degrees Viewing Planes: LATERAL ONLY Contrast: MBSImP? Standardized Protocol using commercially prepared, standardized Barium viscosities, including: Varibar? THIN LIQUID (40% w/v, <15 cps) MBSImP ID: [id number] Results: Lip closure for intraoral bolus containment could not be assessed due to logistical reasons not related to physiologic impairment. Tongue control during bolus hold could not be assessed due to logistical reasons not related to physiologic impairment. Bolus preparation and mastication demonstrated disorganized chewing/mashing with solid pieces of the bolus unchewed. Bolus transport/lingual motion was with repetitive/disorganized motion of the tongue. Oral residue was a collection on oral structures. Initiation of the pharyngeal swallow occurred when the bolus head was in the pyriform sinuses. Soft palate elevation resulted in no bolus between the soft palate and the pharyngeal wall. Laryngeal elevation was incomplete, as indicated through minimal superior movement of the thyroid cartilage with minimal approximation of the arytenoids to the epiglottic petiole. Anterior hyoid excursion demonstrated partial anterior movement. Epiglottic movement resulted in partial inversion. Laryngeal vestibular closure was complete, as indicated by no air or contrast within the laryngeal vestibule at the height of the swallow. Pharyngeal stripping wave was present, but diminished. Pharyngeal contraction could not be determined due to logistical reasons not related to physiologic impairment. Pharyngoesophageal segment opening was completely distended for complete duration with no obstruction of bolus flow. Tongue base retraction allowed a trace column of contrast or air between the retracted tongue base and the posterior pharyngeal wall. Pharyngeal residue was a collection of residue within or on pharyngeal structures. Esophageal clearance in the upright position could not be assessed due to logistical reasons not related to physiologic impairment. Oral Impairment Score: 10 (absence of score, component 1component 2) Pharyngeal Impairment Score: 7 (absence of score, component 13) Esophageal Impairment Score: --- (absence of score, component 17) Laryngeal Penetration and Aspiration: Neither penetration nor aspiration was observed in today's study with Thin, Puree (applesauce), Ground (chicken salad) consistencies. ASSESSMENT: This exam was performed by the speech pathologist and the radiologist. Pt was seated upright at 90 degrees in a stretcher and trialed pureed and ground consistencies. Thin liquids were administered by teaspoon and sippy cup. Pt was able to contain bolus without any anterior spilling. Posterior lingual movements were slowed and characterized by repetitive tongue rocking motion. Mastication was also slowed and disorganized. There was mild to moderate residue coating the tongue and palate with trials of puree and ground textures. Pt swallowed 1-3 times per bite to clear the oral cavity. Pharyngeal swallow trigger was delayed, initiated at the level of the pyriforms. Noted minimal laryngeal elevation and incomplete epiglottic inversion. However, there was no evidence of aspiration or penetration during this exam. There was minimal residue on the tongue base and in the valleculae, which eventually cleared with self-initiated dry swallows. Liquid Intake Recommendation: Thin Liquid Intake Strategies: Small Sips, Liquids by Teaspoon or Sippy Cup Only Dietary Recommendations: Grnd/Mech Altered (NDD2) Medication Administration: Crushed with Puree Please contact the pharmacy regarding appropriate crushable or liquid drug formulations that are available whenever modified delivery is recommended. Compensatory Strategies Recommended: Sitting Upright (90 deg), Double Swallow, Small Bites and Sips, Alternate Liquids/Solids, Rate of Ingestion Change, Oral Check, Avoid Specific Foods Supervision during eating and or drinking: Total Assistance (1:1) Recommended Treatments: Compens. Strategy Educat. Recommendation for Speech Therapy: Inpatient Speech Therapy Text Comment: Intake Recommendations: Route: PO Diet Grade: Mechanical Soft Liquid Consistencies: Thin Post-Study Functional Oral Intake Scale (FOIS): 5- Total oral intake of multiple consistencies requiring special preparation This exam revealed mild to moderate oropharyngeal dysphagia. Slowed and disorganized oral phase. Mild to moderate residue in the oral and pharyngeal cavities, cleared with self-initiated dry swallows. No evidence of aspiration or penetration during this exam. Pt?s mother reports that at home pt was eating solid foods, but it had to be ?soft, moist, and cut into small pieces.? Recommend UPGRADE to GROUND/MECHANICALLY ALTERED (NDD2) solids, equivalent to pt?s reported baseline. Liquids THIN and pills CRUSHED in PUREE. Pt will require total assistance feeding and close monitoring for any overt signs of aspiration. Pt must be awake and alert, attending to feeding, otherwise meal tray to be held. The following strategies are recommended to maximize safety: -Avoid foods which are tough, dry, sticky, or crunchy; avoid mixed consistencies -Moisten food with sauces and gravies -Give small bites -Allow pt ample time to masticate and swallow -Watch for swallow and check oral cavity for clearance before giving next bite -Alternate bites with sips of liquid to clear residue as needed -Liquids administered by teaspoon or controlled (hand over hand) sippy cup -Monitor for pt to take small, individual sips -Position pt optimally for feeding (90 degrees) Therapy Recommendations: Results and recommendations were discussed with Lucretia. Inpatient ST will be continued (2-3 f/u) Prognosis for Improvement: The prognosis for the patient to meet nutritional needs by mouth is good based on degree of impairment, stimulability for treatment, support system. Metal Framer Goals: ? The patient will tolerate the least restrictive diet with a safe/efficient swallow to maintain adequate nutrition and hydration. ? The patient and/or family will participate in further education for swallowing goals. Short Term Goals: ? Diet - The patient will tolerate a mechanical soft diet with thin liquids without signs or symptoms of penetration/aspiration 100% of the time. - The patient will participate in therapeutic PO trials with the DESIGNER WRITER. ? Guidelines - The patient will comply with/recall the following guidelines/strategies 100% of the time with maximum cuing: Bolus Volume Change, Rate of Ingestion Change, Liquid Wash, Additional Swallow(s) per Bolus. ? Education - The patient, family, caregiver will verbalize/demonstrate understanding of the results of this evaluation, the above recommendations, and the swallowing guidelines. Frequency/Duration: 2-3 f/u Date Range for Service Requested: Timeline to reassess: Clinician - Supplemental, Miscellaneous Communication: It is important to note MBSS objective studies are snapshots in time and Patient function might vary with factors such as time of day or concomitant medical conditions. For this reason, the final treatment plan for this patient should rest with their medical care team. Additional recommendations should be considered with the totality of the Patient in mind. Thank for the opportunity to participate in the care of this patient. If you have any questions about the content of this report, please contact the [facility] at [facility]. Education: Education regarding findings from today's study and plans for therapy were provided to Family/caregiver only through Verbal Instruction. Understanding was expressed by the Family/caregiver only. Principal Quality Engineer Clinician/Clinical Fellow: No Supervisory Statement: N/A Speech Language Pathologist: Clover Ralph M.A., [facility], [place]-DESIGNER WRITER
--- NOTE | 2023-07-09 18:33 | P.PNGI_ITS ---
Subjective Subjective Date of Service: 07/09/23 Interval History: mother thinks the patient is improving more alert passing stool and gas cough is much less Critical Care Time (minutes): 0 Physical Exam 2 Vital Signs: Vital Signs: Last Vital Signs Temp 97.2 F 07/09/23 16:00 Pulse 50 07/09/23 16:00 Resp 14 07/09/23 16:00 BP 86/48 L 07/09/23 16:00 Pulse Ox 97 07/09/23 16:00 O2 Del Method Nasal Cannula 07/09/23 16:00 O2 Flow Rate 3 07/09/23 16:00 BMI result Body Mass Index 24.6 EXAM: GENERAL: The patient is lethargic appearing, dysmorphic appearance VITAL SIGNS:see workflow HEENT: Nonicteric sclerae, PERRLA, EOMI. Oropharynx clear. Moist mucous membranes. Conjunctivae appear well perfused. No thyroid mass. CHEST: Chest wall is nontender. HEART: Regular rate and rhythm without murmurs. LUNGS: Clear to auscultation bilaterally. ABDOMEN: Soft, positive bowel sounds, nontender, no organomegaly.no flank tenderness SKIN: No rash, no excessive bruising, petechiae, or purpura. NEUROLOGIC: Cranial nerves II-XII intact without motor/sensory deficit. Objective Data Labs 07/09/23 05:56 07/09/23 05:56 Labs: Laboratory Results - last 24 hr 07/08/23 07/09/23 07/09/23 15:18 05:56 15:03 WBC 4.6 L RBC 2.84 L Hgb 9.0 L Hct 28.0 L MCV 98.6 H MCH 31.7 MCHC 32.1 RDW 12.4 Plt Count 136 L D MPV 10.5 Absolute Nucleated RBC 0.030 H Nucleated RBC % (auto) 0.7 H Neutrophils % (Manual) 52 Band Neutrophils % 4 Lymphocytes % (Manual) 37 Monocytes % (Manual) 6 Eosinophils % (Manual) 1 Abs Neuts (Manual) 2.6 Lymphocytes # (Manual) 1.7 Monocytes # (Manual) 0.3 Toxic Vacuolation PRESENT Platelet Estimate SLIGHTLY DECREASED Plt Morphology Comment NORMAL RBC Morphology NOTED Hypochromasia 1+ (5-14) Macrocytosis 1+ (5-14) Haptoglobin 302 H Creatinine 0.45 L Estim Creat Clear Calc 142.2 Estimated GFR > 60 C-Reactive Protein 10.55 H Random Vancomycin 22.[address] scan - abdomen: Attestation: I personally reviewed and interpreted this imaging study as follows: (fluid around cecum, thickened TI, appendix appears edematous, atelectasis and small pl effusions) Microbiology Microbiology Results: Microbiology 07/07/23 02:51 Blood - Venous Blood Culture - Preliminary No growth after 48 hours. 07/07/23 02:50 Blood - Venous Blood Culture - Preliminary No growth after 48 hours. 07/03/23 04:08 Blood - Venous Blood Culture - Final No growth after 5 days. 07/03/23 04:03 Blood - Venous Blood Culture - Final No growth after 5 days. 07/03/23 Unknown Urine clean catch - Urine murcia top Urine Culture - Final Procedures Date of Service Date of Service: 07/09/23 Progress Note: A&P Assessment and plan (1) Colitis: Status: Acute Plan 1/ Anemia and colitis, CRP is coming down and inflammation seems to be less in the current CT< appendix seems inflammed, certainly this could all be appendicitis with adjacent inflammation PLAN: 1/ would hold on steroids given improvement, defer to surgery team on timing od surgery if clinically indicated, hold on colonoscopy for the moment Time Spent With Patient Time: Total time managing care of this patient today ____ minutes. Quality Stroke Does the patient have a stroke diagnosis?: No VTE Prior VTE?: No VTE Risk Level:: Surgical - low VTE Device Contraindication: Treatment Not Indicated VTE Drug Contraindication: Treatment Not Indicated
[2023-07-09] MEDS: Melatonin 3 MG TABLET PO (21:11)
[2023-07-09] MEDS: cloNIDine HCL 0.1 MG TABLET PO (21:11)
[2023-07-09] MEDS: cloBAZam 10 MG TABLET 15 MG PO (21:11)
[2023-07-10 04:00] VITALS: BP 98/53; PULSE 54; RESP 16; TEMP 36.1; O2SAT 99
[2023-07-10] MEDS: Piperacillin Sodium/Tazobactam 3.375 GM in 0.9 % Sodium Chloride 50 ML IV ×3 (05:44→18:05)
[2023-07-10 06:47] VITALS: BP 128/80; PULSE 50; RESP 16; TEMP 36.1; O2SAT 96
--- NOTE | 2023-07-10 07:26 | P.PNGS_ITS ---
Subjective Subjective Date of Service: 07/10/23 <Peri Rodríguez PA-C - Last Filed: 07/10/23 07:31> 07/11/23 <Ronny Silverman MD - Last Filed: 07/11/23 08:07> Interval history: More alert this morning. Tolerating solid diet. <Peri Rodríguez PA-C - Last Filed: 07/10/23 07:31> Physical Exam 2 Vital Signs: Vital Signs: Last Vital Signs Temp 97 F 07/10/23 06:47 Pulse 50 07/10/23 06:47 Resp 16 07/10/23 06:47 BP 128/80 07/10/23 06:47 Pulse Ox 96 07/10/23 06:47 O2 Del Method Nasal Cannula 07/10/23 06:47 O2 Flow Rate 2 07/10/23 06:47 BMI result Body Mass Index 24.6 <Peri Rodríguez PA-C - Last Filed: 07/10/23 07:31> Const: General: comfortable, no acute distress and alert <Peri Rodríguez PA-C - Last Filed: 07/10/23 07:31> Resp: Effort & Inspection: normal respiratory effort <Peri Rodríguez PA-C - Last Filed: 07/10/23 07:31> GI: Inspection: No distended <Peri Rodríguez PA-C - Last Filed: 07/10/23 07:31> Palpation (GI): Soft to palpation, Tenderness to palpation present (GI) (mild right sided tenderness), no guarding and not rigid <Peri Rodríguez PA-C - Last Filed: 07/10/23 07:31> Skin: General skin exam: no rashes or lesions noted <BERNABE Callaway Last Filed: 07/10/23 07:31> Objective Data Active Medications Acetaminophen (Acetaminophen 325 Mg Tablet) 975 mg PO Q6H PRN PRN Reason: Pain, Mild (Pain Scale 1-3) Last Admin: 07/05/23 12:20 Dose: 325 mg Documented By: YARED Comments: pt only ended up taking one tab Albuterol/Ipratropium (Albuterol/Iprat 2.5/0.5mg 3 Ml Ampul.Neb) 3 ml INHALE RQ6H WHILE AWAKE PRN PRN Reason: Shortness of Breath/Wheezing Last Admin: 07/07/23 16:34 Dose: 3 ml Documented By: CHELSEA Clobazam (Clobazam 10 Mg Tablet) 15 mg PO BEDTIME JULIO CESAR Last Admin: 07/09/23 21:11 Dose: 15 mg Documented By: WILL Clobazam (Clobazam 10 Mg Tablet) 10 mg PO DAILY [facility] Last Admin: 07/09/23 10:15 Dose: 10 mg Documented By: COLTON Comments: given late due to pt too drowsy at time due Clobazam (Clobazam 10 Mg Tablet) 5 mg PO DAILY@1500 [facility] Last Admin: 07/09/23 16:17 Dose: 5 mg Documented By: KIRSTEN Clonidine HCl (Clonidine Hcl 0.1 Mg Tablet) 0.1 mg PO BEDTIME [facility]; Protocol Last Admin: 07/09/23 21:11 Dose: 0.1 mg Documented By: WILL Valproic Acid 1,250 mg/ (Dextrose) 62.5 mls @ 60 mls/hr IV BID [facility] Last Infusion: 07/09/23 23:39 Dose: Infused Documented By: WILL Acetaminophen (Ofirmev) 1,000 mg in 100 mls @ 400 mls/hr IV Q6H PRN PRN Reason: Pain, Mild (Pain Scale 1-3) Last Infusion: 07/09/23 22:45 Dose: Infused Documented By: WILL Piperacillin Sod/Tazobactam (Sod 3.375 gm/ Sodium Chloride) 50 mls @ 100 mls/hr IV Q6H [facility] Last Infusion: 07/10/23 06:18 Dose: Infused Documented By: WILL Vancomycin HCl 1,250 mg/ (Sodium Chloride) 250 mls @ 166.667 mls/hr IV Q12H [facility] Levothyroxine Sodium (Levothyroxine Sodium 100 Mcg/5 Ml Vial) 44 mcg IVPUSH DAILY [facility] Last Admin: 07/09/23 08:27 Dose: 44 mcg Documented By: COLTON Melatonin (Melatonin 3 Mg Tablet) 3 mg PO BEDTIME [facility] Last Admin: 07/09/23 21:11 Dose: 3 mg Documented By: WILL Patient Own Medication Guanfacine 1 Mg 1 each PO BID [facility] Last Admin: 07/09/23 21:13 Dose: 1 each Documented By: WILL Ondansetron HCl (Ondansetron Hcl 4 Mg/2 Ml Vial) 4 mg IVPUSH Q8H PRN PRN Reason: Nausea and Vomiting Oxycodone HCl (Oxycodone Hcl Immed Release 5 Mg Tablet) 5 mg PO Q4H PRN PRN Reason: Pain, Moderate(Pain Scale 4-6) Last Admin: 07/07/23 20:53 Dose: 5 mg Documented By: HUSAM Pharmacy Consult (Consult Rx Vancomycin Dosing) 1 each MISCELLANE DAILY PRN PRN Reason: Consult order Sodium Chloride (0.9 % Sodium Chloride Flush 3 Ml Syringe) 3 ml IVFLUSH QSHIFT [facility] Last Admin: 07/09/23 21:11 Dose: 3 ml Documented By: WILL Topiramate (Topiramate 100 Mg Tablet) 200 mg PO BID [facility] Last Admin: 07/09/23 21:11 Dose: 200 mg Documented By: WILL <Peri Rodríguez PA-C - Last Filed: 07/10/23 07:31> Labs CBC & Chem 7: 07/09/23 05:56 07/10/23 07:26 <Peri Rodríguez PA-C - Last Filed: 07/10/23 07:31> Labs: Laboratory Results - last 24 hr 07/09/23 07/09/23 05:56 15:03 Neutrophils % (Manual) 52 Band Neutrophils % 4 Lymphocytes % (Manual) 37 Monocytes % (Manual) 6 Eosinophils % (Manual) 1 Abs Neuts (Manual) 2.6 Lymphocytes # (Manual) 1.7 Monocytes # (Manual) 0.3 Toxic Vacuolation PRESENT Platelet Estimate SLIGHTLY DECREASED Plt Morphology Comment NORMAL RBC Morphology NOTED Hypochromasia 1+ (5-14) Macrocytosis 1+ (5-14) Random Vancomycin 22.3 H <Peri Rodríguez PA-C - Last Filed: 07/10/23 07:31> Microbiology Microbiology Results: Microbiology 07/07/23 02:51 Blood Culture - Preliminary Blood - Venous No growth after 48 hours. 07/07/23 02:50 Blood Culture - Preliminary Blood - Venous No growth after 48 hours. <Peri Rodríguez PA-C - Last Filed: 07/10/23 07:31> Procedures Date of Service Date of Service: 07/10/23 <Peri Rodríguez PA-C - Last Filed: 07/10/23 07:31> 07/11/23 <Ronny Silverman MD - Last Filed: 07/11/23 08:07> Progress Note: A&P Assessment and plan (1) Colitis: Status: Acute <Peri Rodríguez PA-C - Last Filed: 07/10/23 07:31> Assessment and Plan: No events reported As per mom, she has been consistently more awake Tolerating diet Appears to have been steadily more comfortable No documented fever abdomen remained soft and benign, no obvious tenderness CT shows fluid, persistent inflammatory changes In view of overall clinical improvement, no surgical intervention for now Continue current treatment Mother is comfortable with the plan <Ronny Silverman MD - Last Filed: 07/11/23 08:07> Assessment and Plan: More alert this morning, abdomen remains benign. Less inflammatory changes on CT scan yesterday. Continues to improve on IV abx. Continue current plan. Mom comfortable with plan. <Peri Rodríguez PA-C - Last Filed: 07/10/23 07:31> Time Spent With Patient Time: Total time managing care of this patient today ____ minutes. <Peri Rodríguez PA-C - Last Filed: 07/10/23 07:31> Quality Stroke Does the patient have a stroke diagnosis?: No <Peri Rodríguez PA-C - Last Filed: 07/10/23 07:31> VTE Prior VTE?: No <Peri Rodríguez PA-C - Last Filed: 07/10/23 07:31> VTE Risk Level:: Surgical - low <Peri Rodríguez PA-C - Last Filed: 07/10/23 07:31> VTE Device Contraindication: Treatment Not Indicated <Peri Rodríguez PA-C - Last Filed: 07/10/23 07:31> VTE Drug Contraindication: Treatment Not Indicated <Peri Rodríguez PA-C - Last Filed: 07/10/23 07:31>
[2023-07-10 08:04] LABS: Estimated Glomerular Filt Rate > 60
[2023-07-10] MEDS: vancomycin HCL 1,250 MG in 0.9 % Sodium Chloride 250 ML 166.67 MG IV (08:04)
[2023-07-10] MEDS: cloBAZam 10 MG TABLET PO (08:04)
[2023-07-10] MEDS: Topiramate 100 MG TABLET 200 MG PO ×2 (08:04→21:24)
[2023-07-10] MEDS: Levothyroxine Sodium 100 MCG/5 ML VIAL 44 MCG IVPUSH (08:05)
[2023-07-10] MEDS: 0.9 % Sodium Chloride Flush 3 ML SYRINGE IVFLUSH ×2 (08:05→15:24)
[2023-07-10] MEDS: Divalproex Sodium Sprinkles 125 MG CAP.DR.SPR 1250 MG PO ×2 (08:50→21:23)
--- NOTE | 2023-07-10 10:47 | P.PNIM_ITS ---
Subjective Subjective Date of Service: 07/10/23 Interval History: History obtained by mother at bedside since patient is not communicative, no acute events overnight no fevers, no chills, patient had no bowel movement, Seen by speech therapy and placed on modified diet and thin liquids. Review of Systems Unable to obtain review of systems due to mental status. Physical Exam 2 Vital Signs: Vital Signs: Last Vital Signs Temp 97 F 07/10/23 06:47 Pulse 50 07/10/23 06:47 Resp 16 07/10/23 06:47 BP 128/80 07/10/23 06:47 Pulse Ox 96 07/10/23 06:47 O2 Del Method Nasal Cannula 07/10/23 06:47 O2 Flow Rate 2 07/10/23 06:47 BMI result Body Mass Index 24.6 Const: Other: General resting comfortably CVS regular rate rhythm Lungs normal respiratory effort, clear to auscultation Abdomen soft to palpation, bowel sounds audible, no tenderness right lower quadrant Extremities no edema Neuro moving all 4 extremities. Objective Data Active Medications Acetaminophen (Acetaminophen 325 Mg Tablet) 975 mg PO Q6H PRN PRN Reason: Pain, Mild (Pain Scale 1-3) Last Admin: 07/05/23 12:20 Dose: 325 mg Documented By: YARED Comments: pt only ended up taking one tab Albuterol/Ipratropium (Albuterol/Iprat 2.5/0.5mg 3 Ml Ampul.Neb) 3 ml INHALE RQ6H WHILE AWAKE PRN PRN Reason: Shortness of Breath/Wheezing Last Admin: 07/07/23 16:34 Dose: 3 ml Documented By: CHELSEA Clobazam (Clobazam 10 Mg Tablet) 15 mg PO BEDTIME [facility] Last Admin: 07/09/23 21:11 Dose: 15 mg Documented By: WILL Clobazam (Clobazam 10 Mg Tablet) 10 mg PO DAILY [facility] Last Admin: 07/10/23 08:04 Dose: 10 mg Documented By: YARED Clobazam (Clobazam 10 Mg Tablet) 5 mg PO DAILY@1500 [facility] Last Admin: 07/09/23 16:17 Dose: 5 mg Documented By: KIRSTEN Clonidine HCl (Clonidine Hcl 0.1 Mg Tablet) 0.1 mg PO BEDTIME [facility]; Protocol Last Admin: 07/09/23 21:11 Dose: 0.1 mg Documented By: WILL Divalproex Sodium (Divalproex Sodium Sprinkles 125 Mg ) 1,250 mg PO BID [facility] Last Admin: 07/10/23 08:50 Dose: 1,250 mg Documented By: YARED Acetaminophen (Ofirmev) 1,000 mg in 100 mls @ 400 mls/hr IV Q6H PRN PRN Reason: Pain, Mild (Pain Scale 1-3) Last Infusion: 07/09/23 22:45 Dose: Infused Documented By: WILL Piperacillin Sod/Tazobactam (Sod 3.375 gm/ Sodium Chloride) 50 mls @ 100 mls/hr IV Q6H [facility] Last Infusion: 07/10/23 06:18 Dose: Infused Documented By: WILL Levothyroxine Sodium (Levothyroxine Sodium 88 Mcg Tablet) 88 mcg PO DAILY@0630 [facility] Melatonin (Melatonin 3 Mg Tablet) 3 mg PO BEDTIME [facility] Last Admin: 07/09/23 21:11 Dose: 3 mg Documented By: WILL Patient Own Medication Guanfacine 1 Mg 1 each PO BID [facility] Last Admin: 07/10/23 08:04 Dose: 1 each Documented By: YARED Ondansetron HCl (Ondansetron Hcl 4 Mg/2 Ml Vial) 4 mg IVPUSH Q8H PRN PRN Reason: Nausea and Vomiting Oxycodone HCl (Oxycodone Hcl Immed Release 5 Mg Tablet) 5 mg PO Q4H PRN PRN Reason: Pain, Moderate(Pain Scale 4-6) Last Admin: 07/07/23 20:53 Dose: 5 mg Documented By: HUSAM Sodium Chloride (0.9 % Sodium Chloride Flush 3 Ml Syringe) 3 ml IVFLUSH QSHIFT [facility] Last Admin: 07/10/23 08:05 Dose: 3 ml Documented By: YARED Topiramate (Topiramate 100 Mg Tablet) 200 mg PO BID [facility] Last Admin: 07/10/23 08:04 Dose: 200 mg Documented By: YARED Labs 07/09/23 05:56 07/10/23 07:26 Labs: Laboratory Results - last 24 hr 07/09/23 07/10/23 15:03 07:26 Hold Purple Top SEE NOTE Estim Creat Clear Calc 123.0 Estimated GFR > 60 Random Vancomycin 22.3 H Assessment and Plan (1) Pneumonia: Status: Acute (2) Epilepsy: Status: Acute (3) Abdominal pain: Status: Acute (4) Anemia: Status: Acute Plan 22 year old female with cerebral palsy, [place] Gastaut syndrome, autism disorder, hypothryroidism, who is nonverbal and non communicative at baseline admitted to general surgery for management of probable appendicitis with consult placed to hospitalist service for medical management. Psychology Fellow is mother, Lucretia, who provides history at bedside. Abdominal pain /inflammatory changes around the appendix and cecum, initially thought due to appendicitis febrile, tachycardic tachypenic, leukocytosis on arrival WBC normalized, blood cultures x2 negative Clinically improved, no fevers, CRP trending down general surgery following, continue IV Zosyn started on 07/03, no plan for surgery at this time seen by GI - right side colitis and ileitis with fluid collection with significantly elevated CRP - possible crohns, appendicitis no drainable fluid collection per IR mom continues to want watchful waiting/conservative management and avoid intervention/surgery if possible MBS study showed no aspiration placed on thin liquids and ground mechanical altered diet repeat CT abdomen and pelvis 07/09 showed inflammatory changes, no fluid collection Will give Dulcolax up due to constipation acute respiratory failure due to pneumonia cxr showing pneumonia, no sepsis Blood cultures negative will DC IV vancomycin continue IV Zosyn day 7 MBSS showed no aspiration wean oxygen as tolerated /will try out of bed to chair, not on home O2 acute on chronic normocytic anemia Likely due to irregular periods stool occult test pending Iron, B12 and folate are within normal range Repeat H&H stable , above transfusion threshold. Dysphagia seen by speech, rec NDD1 diet MBSS today, continue aspiration precautions urinary retention resolved Lethargy resolved due to underlying infectious process wbc count stable, urine culture and blood cultures negative LFTs normal on admission ammonia, renal function normal seen by neurology - no further work up necessary hypokalemia replaced and resolved follow BMP hyperchloremic metabolic acidosis likely due to fluids resolved [place] Gastaut syndrome well controlled with history of grand mal seizures Will DC IV depakote, and place on by mouth Depakote home dose, continue by mouth clobazam, topamax Per Dr. Montejo at [facility], periopertive management with IV diazepam if needed. [facility] records reviewed if patient unable to take po meds due to lethargy, recommend to place NGT to give scheduled meds; strict adherence to medication regimen necessary to prevent seizures thrombocytopenia chronic follow CBC Hypothyroidism DC IV synthroid, transition to by mouth will resume guanfacine centrally acting alpha 2 adrenergic receptor stimulant patient use for tics disorder, Can not be stopped abruptly. Disposition as per General surgery Quality Stroke Does the patient have a stroke diagnosis?: No VTE Prior VTE?: No VTE Risk Level:: Surgical - low VTE Device Contraindication: Treatment Not Indicated VTE Drug Contraindication: Treatment Not Indicated
--- NOTE | 2023-07-10 11:54 | P.PNGI_ITS ---
Subjective Subjective Date of Service: 07/10/23 Interval History: still not at baseline but making slow improvements managing some PO on modified diet passing small stool and gas Critical Care Time (minutes): 0 Physical Exam 2 Vital Signs: Vital Signs: Last Vital Signs Temp 97 F 07/10/23 06:47 Pulse 50 07/10/23 06:47 Resp 16 07/10/23 06:47 BP 128/80 07/10/23 06:47 Pulse Ox 96 07/10/23 06:47 O2 Del Method Nasal Cannula 07/10/23 06:47 O2 Flow Rate 2 07/10/23 06:47 BMI result Body Mass Index 24.6 EXAM: GENERAL: The patient is frail VITAL SIGNS:see workflow HEENT: Nonicteric sclerae, PERRLA, EOMI. Oropharynx clear. Moist mucous membranes. Conjunctivae appear well perfused. No thyroid mass. CHEST: Chest wall is nontender. HEART: Regular rate and rhythm without murmurs. LUNGS: Clear to auscultation bilaterally. ABDOMEN: Soft, positive bowel sounds, tender RLQ, no organomegaly.no flank tenderness SKIN: No rash, no excessive bruising, petechiae, or purpura. NEUROLOGIC: Cranial nerves II-XII intact without motor/sensory deficit. Objective Data Labs 07/09/23 05:56 07/10/23 07:26 Labs: Laboratory Results - last 24 hr 07/09/23 07/10/23 15:03 07:26 Hold Purple Top SEE NOTE Creatinine 0.52 Estim Creat Clear Calc 123.0 Estimated GFR > 60 Random Vancomycin 22.3 H Microbiology Microbiology Results: Microbiology 07/07/23 02:51 Blood - Venous Blood Culture - Preliminary No growth after 48 hours. 07/07/23 02:50 Blood - Venous Blood Culture - Preliminary No growth after 48 hours. 07/03/23 04:08 Blood - Venous Blood Culture - Final No growth after 5 days. 07/03/23 04:03 Blood - Venous Blood Culture - Final No growth after 5 days. 07/03/23 Unknown Urine clean catch - Urine murcia top Urine Culture - Final Procedures Date of Service Date of Service: 07/10/23 Progress Note: A&P Assessment and plan (1) Colitis: Status: Acute (2) Anemia: Status: Acute Plan 1/ colitis possible appendicitis with fluid around cecum, TI thickening, less likely crohns PLAN: 1/ Cont with ABx 2./ f/u with surgery 3/ if diagnostic doubt exists then can give trial of hydrocortisone IV Time Spent With Patient Time: Total time managing care of this patient today ____ minutes. Quality Stroke Does the patient have a stroke diagnosis?: No VTE Prior VTE?: No VTE Risk Level:: Surgical - low VTE Device Contraindication: Treatment Not Indicated VTE Drug Contraindication: Treatment Not Indicated
[2023-07-10] MEDS: Acetaminophen 1,000 MG/100 ML PIGGYBACK 400 MG IV ×2 (12:09→21:39)
[2023-07-10] MEDS: cloBAZam 10 MG TABLET 5 MG PO (15:23)
[2023-07-10 15:50] VITALS: BP 107/52; PULSE 63; RESP 18; TEMP 36.1; O2SAT 95
[2023-07-10 19:56] VITALS: BP 127/62; PULSE 52; RESP 18; TEMP 36.1; O2SAT 95
[2023-07-10] MEDS: Docusate Sodium 100 MG CAPSULE PO (21:23)
[2023-07-10] MEDS: cloNIDine HCL 0.1 MG TABLET PO (21:23)
[2023-07-10] MEDS: Melatonin 3 MG TABLET PO (21:23)
[2023-07-10] MEDS: cloBAZam 10 MG TABLET 15 MG PO (21:24)
[2023-07-10] MEDS: bisacodyL 10 MG SUPP.RECT PR (21:39)
[2023-07-11 00:44] LABS: OBS Int Ctl Valid YES; OBS1 POSITIVE (NEGATIVE)
[2023-07-11 03:13] VITALS: BP 92/53; PULSE 50; RESP 16; TEMP 36.1; O2SAT 96
[2023-07-11] MEDS: Piperacillin Sodium/Tazobactam 3.375 GM in 0.9 % Sodium Chloride 50 ML IV ×5 (05:35→23:19)
[2023-07-11] MEDS: Levothyroxine Sodium 88 MCG TABLET PO (06:07)
[2023-07-11 06:59] VITALS: BP 102/54; PULSE 52; RESP 16; TEMP 36.1; O2SAT 95
--- NOTE | 2023-07-11 08:07 | PM.PNGS ---
Subjective Subjective Date of Service: 07/11/23 Interval history: No events overnight as per the mother Tolerating diet Has been steadily more alert Mother does state that patient is not fully back to her baseline but improving Physical Exam Vital Signs: Vital Signs: Last Vital Signs Temp 97 F 07/11/23 06:59 Pulse 52 07/11/23 06:59 Resp 16 07/11/23 06:59 BP 102/54 L 07/11/23 06:59 Pulse Ox 95 07/11/23 06:59 O2 Del Method Nasal Cannula 07/11/23 06:59 O2 Flow Rate 1.1 07/11/23 06:59 BMI result Body Mass Index 24.6 Const: Other: Non communicative, awake General: no acute distress Resp: Effort & Inspection: normal respiratory effort Cardio: Rate: regular rate GI: Inspection: No distended Palpation (GI): Soft to palpation, not firm and no guarding Objective Data Active Medications Acetaminophen (Acetaminophen 325 Mg Tablet) 975 mg PO Q6H PRN PRN Reason: Pain, Mild (Pain Scale 1-3) Last Admin: 07/05/23 12:20 Dose: 325 mg Documented By: YARED Comments: pt only ended up taking one tab Albuterol/Ipratropium (Albuterol/Iprat 2.5/0.5mg 3 Ml Ampul.Neb) 3 ml INHALE RQ6H WHILE AWAKE PRN PRN Reason: Shortness of Breath/Wheezing Last Admin: 07/07/23 16:34 Dose: 3 ml Documented By: CHELSEA Clobazam (Clobazam 10 Mg Tablet) 15 mg PO BEDTIME [facility] Last Admin: 07/10/23 21:24 Dose: 15 mg Documented By: WILL Clobazam (Clobazam 10 Mg Tablet) 10 mg PO DAILY [facility] Last Admin: 07/10/23 08:04 Dose: 10 mg Documented By: YARED Clobazam (Clobazam 10 Mg Tablet) 5 mg PO DAILY@1500 [facility] Last Admin: 07/10/23 15:23 Dose: 5 mg Documented By: YARED Clonidine HCl (Clonidine Hcl 0.1 Mg Tablet) 0.1 mg PO BEDTIME [facility]; Protocol Last Admin: 07/10/23 21:23 Dose: 0.1 mg Documented By: WILL Divalproex Sodium (Divalproex Sodium Sprinkles 125 Mg ) 1,250 mg PO BID [facility] Last Admin: 07/10/23 21:23 Dose: 1,250 mg Documented By: WILL Docusate Sodium (Docusate Sodium 100 Mg Capsule) 100 mg PO BEDTIME [facility] Last Admin: 07/10/23 21:23 Dose: 100 mg Documented By: WILL Acetaminophen (Ofirmev) 1,000 mg in 100 mls @ 400 mls/hr IV Q6H PRN PRN Reason: Pain, Mild (Pain Scale 1-3) Last Infusion: 07/10/23 22:08 Dose: Infused Documented By: WILL Piperacillin Sod/Tazobactam (Sod 3.375 gm/ Sodium Chloride) 50 mls @ 100 mls/hr IV Q6H [facility] Last Infusion: 07/11/23 06:11 Dose: Infused Documented By: WILL Levothyroxine Sodium (Levothyroxine Sodium 88 Mcg Tablet) 88 mcg PO DAILY@0630 [facility] Last Admin: 07/11/23 06:07 Dose: 88 mcg Documented By: WILL Melatonin (Melatonin 3 Mg Tablet) 3 mg PO BEDTIME [facility] Last Admin: 07/10/23 21:23 Dose: 3 mg Documented By: WILL Patient Own Medication Guanfacine 1 Mg 1 each PO BID [facility] Last Admin: 07/10/23 21:23 Dose: 1 each Documented By: WILL Ondansetron HCl (Ondansetron Hcl 4 Mg/2 Ml Vial) 4 mg IVPUSH Q8H PRN PRN Reason: Nausea and Vomiting Oxycodone HCl (Oxycodone Hcl Immed Release 5 Mg Tablet) 5 mg PO Q4H PRN PRN Reason: Pain, Moderate(Pain Scale 4-6) Last Admin: 07/07/23 20:53 Dose: 5 mg Documented By: HUSAM Sodium Chloride (0.9 % Sodium Chloride Flush 3 Ml Syringe) 3 ml IVFLUSH QSHIFT [facility] Last Admin: 07/11/23 00:00 Dose: 3 ml Documented By: WILL Topiramate (Topiramate 100 Mg Tablet) 200 mg PO BID [facility] Last Admin: 07/10/23 21:24 Dose: 200 mg Documented By: WILL Labs 07/09/23 05:56 07/11/23 08:08 Labs: Laboratory Results - last 24 hr 07/10/23 23:25 Stool Occult Blood POSITIVE Procedures Date of Service Date of Service: 07/11/23 Progress Note: A&P Assessment and plan (1) Abdominal pain: Status: Acute Assessment and Plan: CT scan showing inflammatory changes around the cecum, and terminal ileum Acute appendicitis could not be ruled out Patient clinically much improved since admission Abdomen remained soft and benign Tolerating diet Mother says that O2 sat still goes down periodically Continue current care for now until patient is back to baseline May need anemia workup down the line Time Spent With Patient Time: Total time managing care of this patient today ____ minutes. Quality Stroke Does the patient have a stroke diagnosis?: No VTE Prior VTE?: No VTE Risk Level:: Surgical - low VTE Device Contraindication: Treatment Not Indicated VTE Drug Contraindication: Treatment Not Indicated
[2023-07-11 08:52] LABS: Creatinine Clr Calc Pharmacy 120.7; Estimated Glomerular Filt Rate > 60
[2023-07-11] MEDS: 0.9 % Sodium Chloride Flush 3 ML SYRINGE IVFLUSH ×4 (09:03→22:09)
[2023-07-11] MEDS: Divalproex Sodium Sprinkles 125 MG CAP.DR.SPR 1250 MG PO ×2 (09:05→21:56)
[2023-07-11] MEDS: Topiramate 100 MG TABLET 200 MG PO ×2 (09:05→21:56)
[2023-07-11] MEDS: cloBAZam 10 MG TABLET PO (09:05)
[2023-07-11] MEDS: Acetaminophen 1,000 MG/100 ML PIGGYBACK 400 MG IV (09:39)
--- NOTE | 2023-07-11 11:01 | MHC.CLN ---
F/U VISITED WITH PATIENT AND HER MOTHER. DIET=REGULAR, GROUND. SUPPLEMENTS: MAGIC CUP BID (580 KCALS, 18 G PROTEIN) AND ENSURE TID (1050 KCALS, 60 G PROTEIN). TAKES ENSURE AT HOME. DX: PNEUMONIA; RIGHT SIDE COLITIS AND ILEITIS. DISCUSSED WITH MOTHER DIET CONSISTENCY AND ANSWERED QUESTIONS ABOUT LACTOSE INTOLERANCE. INTAKE ABOUT 25% AT MEALS. CONTINUE CURRENT DIET AND SUPPLEMENT. MONITOR PO INTAKE.
--- NOTE | 2023-07-11 13:53 | MHC.CM.PN ---
EMR REVIEWED AND PT IS NOT MEDICALLY CLEARED BY SURGERY FOR DC, NOT BACK TO BASELINE. CM WILL CONTINUE TO FOLLOW FOR ANY CHANGE IN DC NEEDS/PLAN.
[2023-07-11 15:18] VITALS: BP 105/55; PULSE 71; RESP 17; TEMP 36; O2SAT 92
[2023-07-11] MEDS: cloBAZam 10 MG TABLET 5 MG PO (15:24)
[2023-07-11 19:41] VITALS: BP 95/60; PULSE 89; RESP 16; TEMP 36.5; O2SAT 92
[2023-07-11] MEDS: cloBAZam 10 MG TABLET 15 MG PO (21:55)
[2023-07-11] MEDS: Melatonin 3 MG TABLET PO (21:55)
[2023-07-11] MEDS: cloNIDine HCL 0.1 MG TABLET PO (21:55)
[2023-07-11] MEDS: Docusate Sodium 100 MG CAPSULE PO (22:10)
[2023-07-12] VITALS (9 sets, daily range): BP systolic 95–125; BP diastolic 50–67; PULSE 62–99; RESP 14–16; TEMP 36.2–36.4; O2SAT 87–96
[2023-07-12 05:59] LABS: Estimated Glomerular Filt Rate > 60
[2023-07-12] MEDS: Levothyroxine Sodium 88 MCG TABLET PO (06:30)
[2023-07-12] MEDS: Piperacillin Sodium/Tazobactam 3.375 GM in 0.9 % Sodium Chloride 50 ML IV ×4 (06:30→23:01)
[2023-07-12] MEDS: Topiramate 100 MG TABLET 200 MG PO ×2 (09:21→20:27)
[2023-07-12] MEDS: 0.9 % Sodium Chloride Flush 3 ML SYRINGE IVFLUSH ×3 (09:21→23:01)
[2023-07-12] MEDS: cloBAZam 10 MG TABLET PO (09:21)
[2023-07-12] MEDS: Divalproex Sodium Sprinkles 125 MG CAP.DR.SPR 1250 MG PO ×2 (09:26→20:32)
--- NOTE | 2023-07-12 09:50 | P.PNGS_ITS ---
Subjective Subjective Date of Service: 07/13/23 Interval history: Tolerating diet Has been more awake Has had BMs Mother is concerned about 2 sats dropping especially at night and in the inspector hot forgings hours Physical Exam 2 Vital Signs: Vital Signs: Last Vital Signs Temp 97.1 F 07/12/23 07:14 Pulse 72 07/12/23 07:14 Resp 16 07/12/23 07:14 BP 95/50 L 07/12/23 07:14 Pulse Ox 92 07/12/23 07:14 O2 Del Method Nasal Cannula 07/12/23 07:14 O2 Flow Rate 1 07/12/23 07:14 BMI result Body Mass Index 24.6 Const: Other: Eyes open, awake, appears comfortable General: no acute distress Resp: Effort & Inspection: normal respiratory effort Cardio: Rate: regular rate GI: Palpation (GI): Soft to palpation, not firm and nontender Objective Data Active Medications Acetaminophen (Acetaminophen 325 Mg Tablet) 975 mg PO Q6H PRN PRN Reason: Pain, Mild (Pain Scale 1-3) Last Admin: 07/05/23 12:20 Dose: 325 mg Documented By: YARED Comments: pt only ended up taking one tab Albuterol/Ipratropium (Albuterol/Iprat 2.5/0.5mg 3 Ml Ampul.Neb) 3 ml INHALE RQ6H WHILE AWAKE PRN PRN Reason: Shortness of Breath/Wheezing Last Admin: 07/07/23 16:34 Dose: 3 ml Documented By: CHELSEA Clobazam (Clobazam 10 Mg Tablet) 15 mg PO BEDTIME [facility] Last Admin: 07/11/23 21:55 Dose: 15 mg Documented By: KYLEIGH Clobazam (Clobazam 10 Mg Tablet) 10 mg PO DAILY [facility] Last Admin: 07/12/23 09:21 Dose: 10 mg Documented By: IVONNE Clobazam (Clobazam 10 Mg Tablet) 5 mg PO DAILY@1500 [facility] Last Admin: 07/11/23 15:24 Dose: 5 mg Documented By: NII Clonidine HCl (Clonidine Hcl 0.1 Mg Tablet) 0.1 mg PO BEDTIME [facility]; Protocol Last Admin: 07/11/23 21:55 Dose: 0.1 mg Documented By: KYLEIGH Divalproex Sodium (Divalproex Sodium Sprinkles 125 Mg ) 1,250 mg PO BID [facility] Last Admin: 07/12/23 09:26 Dose: 1,250 mg Documented By: IVONNE Docusate Sodium (Docusate Sodium 100 Mg Capsule) 100 mg PO BEDTIME [facility] Last Admin: 07/11/23 22:10 Dose: 100 mg Documented By: KYLEIGH Piperacillin Sod/Tazobactam (Sod 3.375 gm/ Sodium Chloride) 50 mls @ 100 mls/hr IV Q6H [facility] Last Infusion: 07/12/23 07:20 Dose: Infused Documented By: KYLEIGH Levothyroxine Sodium (Levothyroxine Sodium 88 Mcg Tablet) 88 mcg PO DAILY@0630 [facility] Last Admin: 07/12/23 06:30 Dose: 88 mcg Documented By: KYLEIGH Melatonin (Melatonin 3 Mg Tablet) 3 mg PO BEDTIME [facility] Last Admin: 07/11/23 21:55 Dose: 3 mg Documented By: KYLEIGH Patient Own Medication Guanfacine 1 Mg 1 each PO BID [facility] Last Admin: 07/12/23 09:21 Dose: 1 each Documented By: IVONNE Ondansetron HCl (Ondansetron Hcl 4 Mg/2 Ml Vial) 4 mg IVPUSH Q8H PRN PRN Reason: Nausea and Vomiting Sodium Chloride (0.9 % Sodium Chloride Flush 3 Ml Syringe) 3 ml IVFLUSH QSHIFT [facility] Last Admin: 07/12/23 09:21 Dose: 3 ml Documented By: IVONNE Topiramate (Topiramate 100 Mg Tablet) 200 mg PO BID [facility] Last Admin: 07/12/23 09:21 Dose: 200 mg Documented By: IVONNE Labs 07/09/23 05:56 07/13/23 05:37 Labs: Laboratory Results - last 24 hr 07/12/23 05:33 Estim Creat Clear Calc 123.0 Estimated GFR > 60 Microbiology Microbiology Results: Microbiology 07/07/23 02:51 Blood Culture - Final Blood - Venous No growth after 5 days. 07/07/23 02:50 Blood Culture - Final Blood - Venous No growth after 5 days. Procedures Date of Service Date of Service: 07/13/23 Progress Note: A&P Assessment and plan (1) Abdominal pain: Status: Acute Assessment and Plan: CT scan had shown inflammatory changes in the area of the cecum, appendix and terminal ileum Appendicitis can not be ruled out Appears to have responded well to nonoperative treatment Abdomen soft and benign Good oral intake Mother is concerned about her home because O2 sats drop especially at night and in the morning Likely due to atelectasis and pneumonia last week Discussed with hospitalist service - no additional intervention for respiratory issues plan The mother is not comfortable doing her home because of the respiratory issue Time Spent With Patient Time: Total time managing care of this patient today ____ minutes. Quality Stroke Does the patient have a stroke diagnosis?: No VTE Prior VTE?: No VTE Risk Level:: Surgical - low VTE Device Contraindication: Treatment Not Indicated VTE Drug Contraindication: Treatment Not Indicated
[2023-07-12] MEDS: cloBAZam 10 MG TABLET 5 MG PO (14:31)
--- NOTE | 2023-07-12 17:42 | MHC.SLORD ---
Speech Language Pathology Order Status: Patient seen briefly at lunch , with sister assisting patient with meal. Sister reported recommendation that patient take liquids with specialized cup which was present on tray, and that patient was eating and doing well on current diet consistency. MED ASST will continue to follow.
[2023-07-12] MEDS: Melatonin 3 MG TABLET PO (20:28)
[2023-07-12] MEDS: cloNIDine HCL 0.1 MG TABLET PO (20:29)
[2023-07-12] MEDS: cloBAZam 10 MG TABLET 15 MG PO (20:31)
[2023-07-13 04:00] VITALS: O2SAT 94
[2023-07-13] MEDS: Levothyroxine Sodium 88 MCG TABLET PO (05:35)
[2023-07-13] MEDS: Piperacillin Sodium/Tazobactam 3.375 GM in 0.9 % Sodium Chloride 50 ML IV ×2 (05:38→12:16)
[2023-07-13 06:02] LABS: Creatinine Clr Calc Pharmacy 127.9; Estimated Glomerular Filt Rate > 60
[2023-07-13 07:32] VITALS: BP 105/61; PULSE 68; RESP 14; TEMP 36.1; O2SAT 94
[2023-07-13] MEDS: Divalproex Sodium Sprinkles 125 MG CAP.DR.SPR 1250 MG PO (08:50)
[2023-07-13] MEDS: 0.9 % Sodium Chloride Flush 3 ML SYRINGE IVFLUSH (08:51)
[2023-07-13] MEDS: Topiramate 100 MG TABLET 200 MG PO (08:51)
[2023-07-13] MEDS: cloBAZam 10 MG TABLET PO (08:51)
--- NOTE | 2023-07-13 09:15 | P.PNGS_ITS ---
Subjective Subjective Date of Service: 07/13/23 Interval history: According to mother, she seems to be back to baseline Mother feels she is ready to go back home No events reported No fever P.o. intake back to normal Physical Exam 2 Vital Signs: Vital Signs: Last Vital Signs Temp 96.9 F 07/13/23 07:32 Pulse 68 07/13/23 07:32 Resp 14 07/13/23 07:32 BP 105/61 07/13/23 07:32 Pulse Ox 94 07/13/23 07:32 O2 Del Method Room Air 07/13/23 07:32 O2 Flow Rate 1 07/12/23 12:25 BMI result Body Mass Index 24.6 Const: General: comfortable Resp: Effort & Inspection: normal respiratory effort GI: Palpation (GI): Soft to palpation, not firm, nontender and no guarding Objective Data Active Medications Acetaminophen (Acetaminophen 325 Mg Tablet) 975 mg PO Q6H PRN PRN Reason: Pain, Mild (Pain Scale 1-3) Last Admin: 07/05/23 12:20 Dose: 325 mg Documented By: YARED Comments: pt only ended up taking one tab Albuterol/Ipratropium (Albuterol/Iprat 2.5/0.5mg 3 Ml Ampul.Neb) 3 ml INHALE RQ6H WHILE AWAKE PRN PRN Reason: Shortness of Breath/Wheezing Last Admin: 07/07/23 16:34 Dose: 3 ml Documented By: CHELSEA Clobazam (Clobazam 10 Mg Tablet) 15 mg PO BEDTIME [facility] Last Admin: 07/12/23 20:31 Dose: 15 mg Documented By: KYLEIGH Clobazam (Clobazam 10 Mg Tablet) 10 mg PO DAILY [facility] Last Admin: 07/13/23 08:51 Dose: 10 mg Documented By: IVONNE Clobazam (Clobazam 10 Mg Tablet) 5 mg PO DAILY@1500 [facility] Last Admin: 07/12/23 14:31 Dose: 5 mg Documented By: IVONNE Clonidine HCl (Clonidine Hcl 0.1 Mg Tablet) 0.1 mg PO BEDTIME [facility]; Protocol Last Admin: 07/12/23 20:29 Dose: 0.1 mg Documented By: KYLEIGH Divalproex Sodium (Divalproex Sodium Sprinkles 125 Mg ) 1,250 mg PO BID [facility] Last Admin: 07/13/23 08:50 Dose: 1,250 mg Documented By: IVONNE Docusate Sodium (Docusate Sodium 100 Mg Capsule) 100 mg PO BEDTIME [facility] Last Admin: 07/12/23 20:29 Dose: Not Given Documented By: KYLEIGH Non-Admin Reason: multiple loose bm Piperacillin Sod/Tazobactam (Sod 3.375 gm/ Sodium Chloride) 50 mls @ 100 mls/hr IV Q6H [facility] Last Infusion: 07/13/23 06:19 Dose: Infused Documented By: KYLEIGH Levothyroxine Sodium (Levothyroxine Sodium 88 Mcg Tablet) 88 mcg PO DAILY@0630 [facility] Last Admin: 07/13/23 05:35 Dose: 88 mcg Documented By: KYLEIGH Melatonin (Melatonin 3 Mg Tablet) 3 mg PO BEDTIME [facility] Last Admin: 07/12/23 20:28 Dose: 3 mg Documented By: KYLEIGH Patient Own Medication Guanfacine 1 Mg 1 each PO BID [facility] Last Admin: 07/13/23 08:51 Dose: 1 each Documented By: IVONNE Ondansetron HCl (Ondansetron Hcl 4 Mg/2 Ml Vial) 4 mg IVPUSH Q8H PRN PRN Reason: Nausea and Vomiting Sodium Chloride (0.9 % Sodium Chloride Flush 3 Ml Syringe) 3 ml IVFLUSH QSHIFT [facility] Last Admin: 07/13/23 08:51 Dose: 3 ml Documented By: IVONNE Topiramate (Topiramate 100 Mg Tablet) 200 mg PO BID [facility] Last Admin: 07/13/23 08:51 Dose: 200 mg Documented By: IVONNE Labs 07/09/23 05:56 07/13/23 05:37 Labs: Laboratory Results - last 24 hr 07/13/23 05:37 Estim Creat Clear Calc 127.9 Estimated GFR > 60 Microbiology Microbiology Results: Microbiology 07/07/23 02:51 Blood Culture - Final Blood - Venous No growth after 5 days. 07/07/23 02:50 Blood Culture - Final Blood - Venous No growth after 5 days. Procedures Date of Service Date of Service: 07/13/23 Progress Note: A&P Assessment and plan (1) Abdominal pain: Status: Acute Assessment and Plan: As per mother, patient is back to baseline She wants to bring patient back home Abdomen soft and benign Good oral intake No fever O2 sats seem to be more stable Time Spent With Patient Time: Total time managing care of this patient today ____ minutes. Quality Stroke Does the patient have a stroke diagnosis?: No VTE Prior VTE?: No VTE Risk Level:: Surgical - low VTE Device Contraindication: Treatment Not Indicated VTE Drug Contraindication: Treatment Not Indicated
--- NOTE | 2023-07-13 09:27 | MHC.CM.PN ---
DP: PT HAS BEEN MEDICALLY CLEARED FOR DC HOME WITH RESUMPTION OF BLENDING OPERATOR /MOTHER SUPPORT/CARE. PT /MOTHER HAVE OWN RIDE HOME.
--- NOTE | 2023-07-13 13:38 | MHC.SL.SWA ---
Speech Pathologist Impression: Risk of aspiration, oropharyngeal dysphagia Risk of Aspiration Due to: History of Pneumonia Reduced Cognition Dysphasia Diet Status: No change Liquid Consistency and Strategies for Safe Swallow: Liquid Intake Recommendation: Thin Liquid Intake Strategies: Small Sips Liquids by Teaspoon or Sippy Cup Only Solid Food Consistency: Dietary Recommendations: Grnd/Mech Altered (NDD2) Oral Medication Intake: Crushed with Puree Please contact the pharmacy regarding appropriate crushable or liquid drug formulations that are available whenever modified delivery is recommended. Compensatory Strategies and Precautions to be Taken for Safe Swallow: Sitting Upright (90 deg) Double Swallow Small Bites and Sips Alternate Liquids/Solids Rate of Ingestion Change Oral Check Avoid Specific Foods Supervision While Eating and Drinking for Safe Swallow: Total Assistance (1:1) Foods to Avoid: Avoid foods which are tough, dry, sticky, or crunchy; avoid mixed consistencies Swallowing Recommended Treatments: Compens. Strategy Educat. Recommendation for Speech: Pt to d/c from [facility] today. Recommendations for feeding were discussed with mother at bedside this morning. Comment: Intake Recommendations: Route: PO Diet Grade: Mechanical Soft Liquid Consistencies: Thin Post-Study Functional Oral Intake Scale (FOIS): 5- Total oral intake of multiple consistencies requiring special preparation This exam revealed mild to moderate oropharyngeal dysphagia. Slowed and disorganized oral phase. Mild to moderate residue in the oral and pharyngeal cavities, cleared with self-initiated dry swallows. No evidence of aspiration or penetration during this exam. Pt?s mother reports that at home pt was eating solid foods, but it had to be ?soft, moist, and cut into small pieces.? Recommend UPGRADE to GROUND/MECHANICALLY ALTERED (NDD2) solids, equivalent to pt?s reported baseline. Liquids THIN and pills CRUSHED in PUREE. Pt will require total assistance feeding and close monitoring for any overt signs of aspiration. Pt must be awake and alert, attending to feeding, otherwise meal tray to be held. The following strategies are recommended to maximize safety: -Avoid foods which are tough, dry, sticky, or crunchy; avoid mixed consistencies -Moisten food with sauces and gravies -Give small bites -Allow pt ample time to masticate and swallow -Watch for swallow and check oral cavity for clearance before giving next bite -Alternate bites with sips of liquid to clear residue as needed -Liquids administered by teaspoon or controlled (hand over hand) sippy cup -Monitor for pt to take small, individual sips -Position pt optimally for feeding (90 degrees) Therapy Recommendations: Results and recommendations were discussed with Lucretia. Inpatient ST will be continued (2-3 f/u) Prognosis for Improvement: The prognosis for the patient to meet nutritional needs by mouth is good based on degree of impairment, stimulability for treatment, support system. Prison Goals: ? The patient will tolerate the least restrictive diet with a safe/efficient swallow to maintain adequate nutrition and hydration. ? The patient and/or family will participate in further education for swallowing goals. Short Term Goals: ? Diet - The patient will tolerate a mechanical soft diet with thin liquids without signs or symptoms of penetration/aspiration 100% of the time. - The patient will participate in therapeutic PO trials with the SURGICAL GARMENT FITTER. ? Guidelines - The patient will comply with/recall the following guidelines/strategies 100% of the time with maximum cuing: Bolus Volume Change, Rate of Ingestion Change, Liquid Wash, Additional Swallow(s) per Bolus. ? Education - The patient, family, caregiver will verbalize/demonstrate understanding of the results of this evaluation, the above recommendations, and the swallowing guidelines. Peanut Salter Clinican/Clinical Fellow: No Supervisory Statement: I have reviewed and agree with the student/clinical fellow's documentation: N/A Speech Language Pathologist: Clover Ralph M.A., [facility]-SURGICAL GARMENT FITTER
[2023-07-13] MEDS: cloBAZam 10 MG TABLET 5 MG PO (15:15)
--- NOTE | 2023-07-13 15:30 | MHC.CLN ---
F/U DIET=REGULAR, GROUND. SUPPLEMENTS: MAGIC CUP BID (580 KCALS, 18 G PROTEIN) AND ENSURE TID (1050 KCALS, 60 G PROTEIN). INTAKE IMPROVED X 2 DAYS, USUALLY 75-100%. CONTINUE CURRENT DIET AND SUPPLEMENT. MONITOR PO INTAKE.
--- NOTE | 2023-07-17 13:12 | PM.DS ---
DS: Providers Provider Date of Service: 07/13/23 Date of admission: 07/03/23 09:39 Primary care physician: [facility] Attending physician on admission: Gisella Villasenor Consults: 07/03/23 11:05 Consult to Hospitalist Routine Comment: Consulting Provider: Hospitalist Reason For Exam: medical management seizures etc. 07/06/23 10:12 Consult to Neurology Routine Consulting Provider: [facility] Reason for consultation: [place] Gastaut syndrome, cerebral palsy; lethargy Has provider been notified: No 07/06/23 14:19 Consult to Gastroenterology Routine Consulting Provider: Roman Villalobos Reason for consultation: RLQ inflammatory process ?IBD Has provider been notified: No Attending physician on discharge: Ronny Silverman DS: Diagnosis Discharge Diagnosis (1) Abdominal pain: Status: Acute DS: Summary Hospital Course Hospital Course: HPI AT ADMISSION: Tray Pitts is a 22 year old female with cerebral palsy, seizure disorder, nonverbal and non communicative who lives with her mother. Her mother thought since yesterday she wasnt feeling well and thoght she may have a UTI. over the last 1-2 years she has been getting UTI and mom notices she is more lethargic, more wiggly, not wanting to let anyone touch her belly when that happens. She didnt have a fever at the time and nothing else seemed unusual. Then by midnight last night her Mom was more concerned as the pt was not herself and didnt want to drink anything ans so she called the ambulance to bring her to the hospital. Here labs showed wbc to be 13 and urine seems ok. Ct scan abdomen and pelvis shows inflammatory changes in the right lower quadrant without clear visulaization of the appendix. no abscess no free air. Probable appendicitis. Discussed with the radiologist and suggesting repeating the scan in a day or two with iv contrast. Pt here in the ER more alert and responsive and seems to be better. HOSPITAL COURSE: The patient was admitted to the surgical service for further treatment. Pt most likely with appendicitis but appeared to be without complications such as rupture or abscess etc. Given she is a higher risk for surgery, it was recommended to continue with conservative care with npo and ivf and IV zosyn and reassess if worsening, no improvement. Hospitalist consult was obtained for management of her medical comorbidities. Her home medications were resumed. The patient had a lengthy hospital stay. She initially seemed to improve and became more alert and comfortable per mother. Her abdomen remained benign with very minimal tenderness. She was advanced to clear liquids. She did develop diarrhea and C diff was obtained which was negative. On HD #2, she developed a cough and mom became more concerned because she seemed increasingly lethargic. Work up included a vbg which showed an acidosis likely due to hyperchloremic metabolic acidosis and not retaining. IVF changed to LR from NS. CXR with possible developing infiltrate, and doxycycline was added. She was placed on aspiration precautions and made NPO again. She remained febrile and lethargic and therefore repeat CT scan was obtained which showed persistent inflammatory changes surrounding the cecum and terminal ileum without an identifiable appendix. Question of terminal ileitis, cellulitis, typhilitis; appendicitis not ruled out. IR was consulted - no drainable fluid collection. GI was consulted. They felt the RLQ inflammation was likely due to appendicitis and recommended continued close observation. She was evaluated by speech therapy for her dysphagia and they recommended NDD1 diet and she had a MBSS which did not show aspiration. She slowly improved over the course of the next week on antibiotics. She did develop urinary retention requiring straight catheterization once and then was able to void on own. She developed acute on chronic normocytic anemia, likely due to menstruation. H/H remained stable and she did not require transfusion. She was gradually weaned off supplemental oxygen. She returned back to baseline per mom and back to her normal PO intake. Her vitals remained stable and she was afebrile <48h. She was discharged on 07/13/23 on a PO course of Augmentin. She is to follow up with her PCP upon discharge and Dr. Silverman in 1 week. Status at Discharge Overall status at discharge: patient is back to baseline Time Attestation Discharge Coordination Time: discharge time of ____ minutes Quality: Safe Use of Opioids Does Pt have an Active Cancer Diagnosis on the Problem List?: No Quality: Stroke Does the patient have a stroke diagnosis?: No Physical Exam Vital Signs: Vital Signs: Last Vital Signs Temp 96.9 F 07/13/23 07:32 Pulse 68 07/13/23 07:32 Resp 14 07/13/23 07:32 BP 105/61 07/13/23 07:32 Pulse Ox 94 07/13/23 07:32 O2 Del Method Room Air 07/13/23 07:32 O2 Flow Rate 1 07/12/23 12:25 BMI result Body Mass Index 24.6 Const: General: comfortable, no acute distress and alert GI: Inspection: No distended Palpation (GI): Soft to palpation, nontender and no guarding Discharge Plan Discharge Anticipated Discharge Date/Time: 07/06/23 08:31 Patient Disposition: Home, Self-Care Discharge Diagnosis: inflammation around cecum and terminal ileum Referrals: [facility] [Primary Care Provider] - 1 Week Ronny Silverman MD [Physician] - 1 Week Discharge Medications: New acetaminophen [Tylenol] 325 mg tablet 650 mg PO Q6H PRN (Reason: fever or pain) Qty: 20 0RF amoxicillin-pot clavulanate 250-62.5 mg/5 mL suspension for reconstitution 10 ml PO TID Qty: 150 0RF Continued clonidine HCl 0.1 mg tablet 0.1 mg PO BEDTIME levothyroxine 88 mcg tablet 88 mcg PO DAILY@0630 guanfacine 1 mg tablet 1 mg PO BID topiramate 100 mg tablet 200 mg PO BID divalproex [Depakote Sprinkles] 125 mg capsule, delayed rel sprinkle 1,250 mg PO BID clobazam 10 mg tablet 15 mg PO BEDTIME clobazam 10 mg tablet 10 mg PO DAILY clobazam 10 mg tablet 7.5 mg PO DAILY@1500 Discharge Orders: Discharge Order (Routine); Ordered 07/13/23 Ordered By: Ronny Silverman Diet: Advance to usual diet Activity on Discharge: As tolerated Stand Alone Forms: Patient Portal Discharge page Activity Restrictions/Additional Instructions: Follow up in office in a week. ([phone]) Call Your Doctor If: ? ? -Your temperature exceeds 101.5? F? ? ? -You experience excessive pain or swelling ? ? -You have an unexpected reaction to medication ? ? -You experience continued vomiting/nausea Dietary recommendations: Liquid Intake Recommendation: Thin Liquid Intake Strategies: Small Sips, Liquids by Teaspoon or Sippy Cup Only Dietary Recommendations: Ground/Mechanically Altered (NDD2) Strategies to maximize safety: -Avoid foods which are tough, dry, sticky, or crunchy; avoid mixed consistencies -Moisten food with sauces and gravies -Give small bites -Allow pt ample time to masticate and swallow -Watch for swallow and check oral cavity for clearance before giving next bite -Alternate bites with sips of liquid to clear residue as needed -Liquids administered by teaspoon or controlled (hand over hand) sippy cup -Monitor for pt to take small, individual sips -Position pt optimally for feeding (90 degrees) Care Plan Goals: Return to baseline health and resume normal daily activities. Health Concerns: cerebral palsy [place] Gastaut syndrome ileitis, possible appendicitis Plan of Treatment: supportive treatment with IV abx, IVF and bowel rest PO abx on discharge Outpatient follow up with Dr. Silvermna Assessment: Improved Discharge Date/Time: 07/13/23 16:15
== END 2023-07-13 16:15 | disposition home or self-care (01) | DRG 249 ==
LOC: HO.ED 10:08 → HO.EDOVER 10:46 → HO.S3 19:29
PROVIDERS: Internal Medicine; Internal Medicine Gastroenterology; Physician Assistant Medical; Surgery; Admitting Provider Surgery; Emergency Provider Emergency Medicine; Visit Provider Surgery
DX: K52.9 Noninfective gastroenteritis and colitis, unspecified (principal); J96.00 Acute respiratory failure, unspecified whether with hypoxia or hypercapnia; G93.49 Other encephalopathy; D69.6 Thrombocytopenia, unspecified; E87.20 Acidosis, unspecified; J18.9 Pneumonia, unspecified organism; F84.0 Autistic disorder; G40.812 Lennox-Gastaut syndrome, not intractable, without status epilepticus; E87.6 Hypokalemia; D64.9 Anemia, unspecified; R33.9 Retention of urine, unspecified; R13.10 Dysphagia, unspecified; E03.9 Hypothyroidism, unspecified; Z99.3 Dependence on wheelchair; E73.9 Lactose intolerance, unspecified; G80.9 Cerebral palsy, unspecified; Z20.822 Contact with and (suspected) exposure to COVID-19; Z79.890 Hormone replacement therapy; Z79.899 Other long term (current) drug therapy
CPT/HCPCS: 0241U; 36415; 71045; 74176; 74177; 74230; 80048; 80053; 80076; 80202; 81001; 81025; 82140; 82272; 82565; 82607; 82728; 82746; 82803; 83010; 83540; 83605; 83615; 83690; 83880; 84484; 85007; 85014; 85018; 85025; 85027; 85045; 85610; 86140; 86850; 86900; 86901; 87040; 87086; 87493; 87633; 92526; 92610; 92611; 99285; J0131; J0696; J1885; J2543; J3370; J3371; J3480; J7120; Q9967

== ENCOUNTER 2023-07-03 09:39 | Outpatient (BNV) | payer MEDICAID, SELFPAY | END 2023-07-09 14:23 | PROVIDERS: Admitting Provider Surgery; Emergency Provider Emergency Medicine; Visit Provider Physician Assistant Surgical | DX: R13.10 Dysphagia, unspecified (principal) | CPT/HCPCS: 74230 ==

== ENCOUNTER → 2023-07-03 09:39 | Outpatient (BNV) | payer MEDICAID, SELFPAY | PROVIDERS: Admitting Provider Surgery; Emergency Provider Emergency Medicine; Visit Provider Psychiatry & Neurology Neurology | DX: G40.909 Epilepsy, unspecified, not intractable, without status epilepticus (principal); G93.49 Other encephalopathy | CPT/HCPCS: 99222 ==

== ENCOUNTER → 2023-07-03 09:39 | Outpatient (BNV) | payer MEDICAID, SELFPAY | PROVIDERS: Admitting Provider Surgery; Emergency Provider Emergency Medicine; Visit Provider Physician Assistant | DX: J18.9 Pneumonia, unspecified organism (principal); G40.814 Lennox-Gastaut syndrome, intractable, without status epilepticus; R10.9 Unspecified abdominal pain; D64.9 Anemia, unspecified | CPT/HCPCS: 99222; 99233 ==

== ENCOUNTER → 2023-07-03 09:39 | Outpatient (BNV) | payer MEDICAID, SELFPAY | PROVIDERS: Admitting Provider Surgery; Emergency Provider Emergency Medicine; Visit Provider Internal Medicine Gastroenterology | DX: K52.9 Noninfective gastroenteritis and colitis, unspecified (principal); D64.9 Anemia, unspecified | CPT/HCPCS: 99223; 99232 ==

== ENCOUNTER → 2023-07-03 09:39 | Outpatient (BNV) | payer MEDICAID, SELFPAY | PROVIDERS: Admitting Provider Surgery; Emergency Provider Emergency Medicine; Visit Provider Surgery | DX: R10.9 Unspecified abdominal pain (principal) | CPT/HCPCS: 99024; 99222; 99232; 99233; 99239; 99499 ==

== ENCOUNTER 2024-04-25 10:42 | Outpatient (REF) | payer MEDICAID, SELFPAY ==
[2024-04-25 14:18] LABS: MANUAL DIFF FLAG NO
[2024-04-25 14:21] LABS: Basophils Percent Auto 0.2 % (0-2); Hematocrit 36.9 % (37.0-47.0); Lymphocytes Absolute Auto 2.6 X10*3/uL (1.2-4.9); Lymphocytes Percent Auto 55.7 % (20-40); Mean Corpuscular HGB Conc 32.5 g/dl (31.0-35.0); Mean Corpuscular Hemoglobin 32.4 pg (27.0-33.0); Mean Corpuscular Volume 99.7 fL (80.0-98.0); Mean Platelet Volume 11.9 fL (9.4-12.3); Monocytes Absolute Auto 0.6 X10*3/uL (0.1-1.2); Monocytes Percent Auto 12.1 % (2-11); Neutrophils Absolute Auto 1.5 x10*3/uL (2.0-8.3); Platelet Count 68 X10*3/uL (160-400); White Blood Count 4.6 X10*3/uL (4.8-10.8)
[2024-04-25 14:35] LABS: Estimated Average Glucose 100 mg/dL; Hemoglobin A1C 101.0268 umol/L; Hemoglobin A1c % 5.1 % (<6.0); Total Hemoglobin (HGBA1C) 3146.0027 umol/L
[2024-04-25 14:49] LABS: Albumin Level 3.4 g/dL (3.5-5.0); Anion Gap 10 (12-20); Aspartate Amino Transferase 20 U/L (5-31); Bilirubin Direct < 0.2 mg/dL (0.0-0.5); Bilirubin Total 0.2 mg/dL (0.0-1.0); Blood Urea Nitrogen 14 mg/dL (9-16); Calcium 9.1 mg/dL (8.4-10.2); Carbon Dioxide 26 mmol/L (22-29); Chloride 107 mmol/L (96-108); Estimated Glomerular Filt Rate > 60; Glucose Random 89 mg/dL (60-115); Potassium 3.7 mmol/L (3.3-5.1); Sodium 139 mmol/L (135-145); Total Protein 6.9 g/dL (6.5-8.0)
[2024-04-25 15:00] LABS: Alanine Aminotransferase 6 U/L (0-31); Alkaline Phosphatase 78 U/L (39-117)
[2024-04-25 15:01] LABS: Valproate 100.9 mcg/mL (50.0-100.0)
[2024-04-25 15:12] LABS: TSH reflex Free T4 1.99 uIU/mL (0.32-4.0); Vitamin D 25-OH Total 88.3 ng/mL (>30)
[2024-04-25 15:22] LABS: Folate 6.1 ng/mL (> or = 4.0); Vitamin B12 1050 pg/mL (200-900)
== END 2024-04-25 10:43 | disposition home or self-care (01) ==
LOC: CF 10:42
PROVIDERS: Visit Provider Pediatrics
DX: Z00.00 Encounter for general adult medical examination without abnormal findings (principal); E03.9 Hypothyroidism, unspecified; R56.9 Unspecified convulsions
CPT/HCPCS: 36415; 80048; 80076; 80164; 82306; 82607; 82746; 83036; 84443; 85025